=== PATIENT | female | born 1945 | race Caucasian/White ===

== ENCOUNTER 2017-06-08 03:23 | Inpatient (IN) | payer OTHER, MEDICAID ==
[2017-06-08] VITALS (10 sets, daily range): BP systolic 81–93; BP diastolic 42–54; PULSE 83–96; RESP 16–20; TEMP 98.1; Ht 152.4 cm; Wt 120.3 kg
[~2017-06-08] VITALS: Ht 152.4 cm; Wt 120.3 kg
[2017-06-08] MEDS ORDERED: ALBUTEROL 0.083% (NEB) 2.5 MG/3 ML AMP HHN STA (03:29)
[2017-06-08] MEDS ORDERED: CEFEPIME 2GM/50 ML (PMX) 50 ML IVPB STA (03:29)
[2017-06-08] MEDS ORDERED: IPRATROPIUM (NEB) 0.5 MG/2.5 ML AMP HHN ONE (03:30)
[2017-06-08] MEDS ORDERED: SOD CHLORIDE 0.9% 500 ML IV ONE (04:00)
[2017-06-08] MEDS ORDERED: SOD CHLORIDE 0.9% 1,000 ML IV ONE ×2 (04:00)
[2017-06-08 04:27] LABS: ABNORMAL IP MESSAGE 1; BASOPHILS % 0.3 % (0.0-2.0); EOSINOPHILS # 0.1 10^3/ul (0.0-0.5); EOSINOPHILS % 2.1 % (0.0-7.0); HEMATOCRIT 29.5 % (37.0-47.0); HEMOGLOBIN 9.7 g/dl (12.0-16.0); LYMPHOCYTES # 1.1 10^3/ul (0.8-2.9); LYMPHOCYTES % 19.7 % (15.0-51.0); MEAN CORPUSCULAR HEMOGLOBIN 39.3 pg (29.0-33.0); MEAN CORPUSCULAR HGB CONC 32.9 g/dl (32.0-37.0); MEAN CORPUSCULAR VOLUME 119.4 fl (82.0-101.0); MEAN PLATELET VOLUME 11.6 fl (7.4-10.4); MONOCYTE # 0.3 10^3/ul (0.3-0.9); MONOCYTES % 5.6 % (0.0-11.0); NEUTROPHILS % 70.2 % (39.0-77.0); RED BLOOD COUNT 2.47 10^6/ul (4.20-5.40); RED CELL DISTRIBUTION WIDTH 15.9 % (11.5-14.5); WHITE BLOOD COUNT 5.8 10^3/ul (4.8-10.8)
[2017-06-08 04:34] LABS: POSITIVE DIFF @See below
[2017-06-08 04:46] LABS: INR 1.48; PT RATIO 1.4
[2017-06-08 04:47] LABS: PARTIAL THROMBOPLASTIN TIME 36.3 Sec (25.0-35.0)
[2017-06-08 04:57] LABS: ALANINE AMINOTRANSFERASE 37 IU/L (13-69); ALBUMIN 2.7 g/dl (3.3-4.9); ALBUMIN/GLOBULIN RATIO 0.52; ALKALINE PHOSPHATASE 239 IU/L (42-121); ANION GAP 9 (8-16); ASPARTATE AMINO TRANSFERASE 60 IU/L (15-46); BILIRUBIN,INDIRECT 2.7 mg/dl (0-1.1); BILIRUBIN,TOTAL 2.7 mg/dl (0.2-1.3); BLOOD UREA NITROGEN 17 mg/dl (7-20); CALCIUM 8.3 mg/dl (8.4-10.2); CARBON DIOXIDE 29 mmol/L (21-31); CHLORIDE 107 mmol/L (97-110); CREATININE 0.55 mg/dl (0.44-1.00); GLUCOSE 105 mg/dl (70-220); POTASSIUM 4.5 mmol/L (3.5-5.1); SODIUM 140 mmol/L (135-144); TOTAL PROTEIN 7.8 g/dl (6.1-8.1)
[2017-06-08 05:14] LABS: TROPONIN-I < 0.012 ng/ml (0.00-0.12)
--- NOTE | 2017-06-08 05:24 | RADRPT ---
PROCEDURE: CHEST CLINICAL INDICATION: 72-year-old female with shortness of breath and sepsis. TECHNIQUE: AP semi-erect view of the chest was obtained portably on two radiographs portably. Th e images were reviewed on a PACS workstation. COMPARISON: CR PORT CHEST 02/23/2009 FINDINGS: The cardiomediastinal silhouette is mildly prominent but without significant interval change. Chroni c interstitial lung changes are noted. There is no evidence for focal consolidation. There is no e vidence for congestive heart failure. There is no evidence for pneumothorax. Degenerative changes ar e seen within the right acromioclavicular joint. IMPRESSION: 1. Chronic lung changes. 2. Right acromioclavicular degenerative changes. .Julio C Armas MD, Date Time Electronically viewed and signed by .Julio C Armas MD, on 06/08/2017 05:23 .M/
[2017-06-08 05:31] LABS: PLATELET COUNT 52 10^3/UL (140-415)
[2017-06-08 05:52] LABS: URINE BLOOD (Dip) POC Negative (NEGATIVE)
[2017-06-08] MEDS ORDERED: ACETAMINOPHEN 325 MG TAB PO PRN ×2 (06:30→08:00)
[2017-06-08] MEDS ORDERED: ONDANSETRON 4 MG INJ IV PRN ×3 (06:30→14:00)
--- NOTE | 2017-06-08 06:32 | RADRPT ---
PROCEDURE: ULTRASOUND LIMITED ABDOMEN CLINICAL INDICATION: 72-year-old female with abdominal pain and hyperbilirubinemia. TECHNIQUE: Multiple sonographic of the right upper quadrant of the abdomen were obtained. The imag es were reviewed on a PACS workstation. COMPARISON: None. FINDINGS: The pancreas is not well visualized secondary to overlying bowel gas. The liver has a coarse heterogeneous cirrhotic appearing. The liver measures 11.4 cm in length. No evidence of intrahepatic biliary ductal dilatation is seen. The portal and hepatic veins are unremar kable. The gallbladder is not visualized consistent with prior cholecystectomy. No pericholecystic fluid is seen. The common bile duct measures 4.2 mm and is not dilated. The right kidney displays normal echogenicity. The right kidney measures 9.8 cm in maximal length. N o caliectasis or hydronephrosis is seen. There is [id number] ascites present. IMPRESSION: 1. Nbjv-kw-[id number] ascites. 2. Cirrhotic liver. 3. Status post cholecystectomy. 4. The pancreas is not well visualized secondary to overlying bowel gas. .Julio C Armas MD, Date Time Electronically viewed and signed by .Julio C Armas MD, MD on 06/08/2017 06:32 .M/
[2017-06-08 07:43] LABS: ADD UMIC YES; UR AMORPHOUS CRYSTAL FEW /HPF (NONE SEEN); UR ASCORBIC ACID NEGATIVE (NEGATIVE); UR BACTERIA FEW /HPF (NONE SEEN); UR BILIRUBIN (Dip) NEGATIVE (NEGATIVE); UR BLOOD (Dip) 1+ mg/dL (NEGATIVE); UR CLARITY SLIGHTLY CLOUDY (CLEAR); UR COLOR AMBER (YELLOW); UR GLUCOSE (Dip) NEGATIVE (NEGATIVE); UR KETONES (Dip) NEGATIVE (NEGATIVE); UR LEUKOCYTE ESTERASE (Dip) NEGATIVE Leu/ul (NEGATIVE); UR MUCUS MANY /HPF (NONE SEEN); UR NITRITE (Dip) NEGATIVE (NEGATIVE); UR RBC 7 /HPF (0-5); UR SPECIFIC GRAVITY (Dip) 1.024 (1.003-1.030); UR SQUAMOUS EPITHELIAL CELL FEW /HPF (FEW); UR TOTAL PROTEIN (Dip) 1+ mg/dl (NEGATIVE); UR UROBILINOGEN (Dip) 2+ mg/dL (NEGATIVE)
[2017-06-08] MEDS ORDERED: NACL 0.9% 3 ML SYG IV SCH (08:00)
[2017-06-08] MEDS ORDERED: IPRATROPIUM (NEB) 0.5 MG/2.5 ML AMP NEB PRN (08:00)
[2017-06-08] MEDS ORDERED: LEVALBUTEROL (NEB) 0.63 MG/3 ML AMP HHN PRN (08:00)
[2017-06-08] MEDS ORDERED: morphine 2 MG INJ IV PRN (08:00)
--- NOTE | 2017-06-08 08:17 | ERD ---
ER Documentation Chief Complaint Chief Complaint awoken by SOB 3 hrs ago, flu symptoms, hot to touch, improved w/ hhn/ems HPI 72-year-old female awoke with shortness of breath 3 hours ago. Also generalized body aches and felt febrile and was shaky. Starting to feel better earlier yesterday. Brought in by paramedics who noticed that she was wheezing give her breathing treatment in route after which she was feeling slightly better. Denies any specific chest pain. ROS All systems reviewed and are negative except as per history of present illness. Allergies Allergies: Coded Allergies: No Known Allergy (Unverified , 06/08/17) PMhx/Soc History of Surgery: Yes (Gall bladder, Cosmetic fat/skin removal abd.) Anesthesia Reaction: No Hx Neurological Disorder: No Hx Respiratory Disorders: Yes (COPD) Hx Cardiac Disorders: Yes (CHF) Hx Psychiatric Problems: No Hx Miscellaneous Medical Probl: No Hx Alcohol Use: No Hx Substance Use: No Hx Tobacco Use: No Smoking Status: Never smoker Physical Exam Vitals Vital Signs Date Time Temp Pulse Resp B/P Pulse Ox O2 Delivery O2 Flow Rate FiO2 06/08/17 06:22 98.9 113 20 114/65 06/08/17 06:00 111 23 118/50 Room Air 06/08/17 03:50 107 24 95 Nasal Cannula 21 06/08/17 03:35 102.0 104 24 141/73 99 Room Air 06/08/17 03:28 102.0 111 24 141/73 99 Physical Exam Const: [] Moderate distress Head: Atraumatic Eyes: Normal Conjunctiva ENT: Normal External Ears, Nose and Mouth. Neck: Full range of motion..~ No meningismus. Resp: Left anterior wheezing with tachypnea and mild accessory muscle use Cardio: Regular tachycardia no murmurs Abd: Soft, non tender, non distended. Normal bowel sounds Skin: No petechiae or rashes Back: No midline or flank tenderness Ext: No cyanosis, or edema Neur: Awake and alert and oriented 3, no focal deficits. Psych: Normal Mood and Affect Result Diagram: 06/08/17 0345 06/08/17 0345 Results 24 hrs Laboratory Tests Test 06/08/17 03:45 06/08/17 05:51 06/08/17 06:20 06/08/17 07:00 White Blood Count 5.810^3/ul Red Blood Count 2.4710^6/ul Hemoglobin 9.7g/dl Hematocrit 29.5% Mean Corpuscular Volume 119.4fl Mean Corpuscular Hemoglobin 39.3pg Mean Corpuscular Hemoglobin Concent 32.9g/dl Red Cell Distribution Width 15.9% Platelet Count 5210^3/UL Mean Platelet Volume 11.6fl Neutrophils % 70.2% Lymphocytes % 19.7% Monocytes % 5.6% Eosinophils % 2.1% Basophils % 0.3% Nucleated Red Blood Cells % 0.0/100WBC Neutrophils # 4.010^3/ul Lymphocytes # 1.110^3/ul Monocytes # 0.310^3/ul Eosinophils # 0.110^3/ul Basophils # 0.010^3/ul Nucleated Red Blood Cells # 0.010^3/ul Prothrombin Time 18.0Sec Prothrombin Time Ratio 1.4 INR International Normalized Ratio 1.48 Activated Partial Thromboplast Time 36.3Sec Sodium Level 140mmol/L Potassium Level 4.5mmol/L Chloride Level 107mmol/L Carbon Dioxide Level 29mmol/L Anion Gap 9 Blood Urea Nitrogen 17mg/dl Creatinine 0.55mg/dl Glucose Level 105mg/dl Lactic Acid Level 3.1mmol/L 2.8mmol/L Calcium Level 8.3mg/dl Total Bilirubin 2.7mg/dl Direct Bilirubin 0.00mg/dl Indirect Bilirubin 2.7mg/dl Aspartate Amino Transf (AST/SGOT) 60IU/L Alanine Aminotransferase (ALT/SGPT) 37IU/L Alkaline Phosphatase 239IU/L Troponin I < 0.012ng/ml Total Protein 7.8g/dl Albumin 2.7g/dl Globulin 5.10g/dl Albumin/Globulin Ratio 0.52 Bedside Urine pH (LAB) 5.5 Bedside Urine Protein (LAB) 1+ Bedside Urine Glucose (UA) Negative Bedside Urine Ketones (LAB) Negative Bedside Urine Blood Negative Bedside Urine Nitrite (LAB) Negative Bedside Urine Leukocyte Esterase (L Negative Urine Color EDIL Urine Clarity SLIGHTLY CLOUDY Urine pH 5.0 Urine Specific [place] 1.024 Urine Ketones NEGATIVEmg/dL Urine Nitrite NEGATIVEmg/dL Urine Bilirubin NEGATIVEmg/dL Urine Urobilinogen 2+mg/dL Urine Leukocyte Esterase NEGATIVELeu/ul Urine Microscopic RBC 7/HPF Urine Microscopic WBC 3/HPF Urine Squamous Epithelial Cells FEW/HPF Urine Amorphous Crystals FEW/HPF Urine Bacteria FEW/HPF Urine Mucus MANY/HPF Urine Hemoglobin 1+mg/dL Urine Glucose NEGATIVEmg/dL Urine Total Protein 1+mg/dl Current Medications Medications (Trade) Dose Ordered Sig/Aaliyah Route PRN Reason Start Time Stop Time Status Last Admin Dose Admin Cefepime HCl (Maxipime 2gm/50 ml (Pmx)) 50 ml @ 100 mls/hr ONCE STAT IVPB 06/08/17 03:29 06/08/17 03:58 DC 06/08/17 03:29 Ipratropium [place] (Atrovent 0.02% (Neb)) 0.5 mg ONCE ONCE HHN 06/08/17 03:30 06/08/17 03:31 DC 06/08/17 03:51 Albuterol 5 mg 5 mg ONCE STAT HHN 06/08/17 03:29 06/08/17 03:31 DC 06/08/17 03:51 Sodium Chloride 1,000 ml @ 1,000 mls/hr Q1H ONCE IV 06/08/17 04:00 06/08/17 04:59 DC 06/08/17 04:41 Sodium Chloride 1,000 ml @ 1,000 mls/hr Q1H ONCE IV 06/08/17 04:00 06/08/17 04:59 DC 06/08/17 04:41 Sodium Chloride (NS) 500 ml @ 500 mls/hr Q1H ONCE IV 06/08/17 04:00 06/08/17 04:59 DC 06/08/17 04:00 Ondansetron HCl (Zofran Inj) 4 mg BRIDGE ORDER PRN IV NAUSEA AND/OR VOMITING 06/08/17 06:30 06/09/17 06:29 Acetaminophen (Tylenol Tab) 650 mg ER BRIDGE PRN PO MILD PAIN/FEVER 06/08/17 06:30 06/09/17 06:29 IV Flush (NS 3 ml) 3 ml PER PROTOCOL IV 06/08/17 08:00 Ondansetron HCl (Zofran Inj) 4 mg Q6H PRN IV NAUSEA AND/OR VOMITING 06/08/17 08:00 Acetaminophen (Tylenol Tab) 650 mg Q6H PRN PO PAIN LEVEL 1-3 OR FEVER 06/08/17 08:00 Morphine Sulfate (morphine) 2 mg Q4H PRN IV SEVERE PAIN LEVEL 7-10 06/08/17 08:00 Heparin Sodium (Porcine) (Heparin (5000 Units/0.5 ml)) 5,000 unit Q12 SC 06/08/17 09:00 Ipratropium [place] (Atrovent 0.02% (Neb)) 0.5 mg Q4H RESP THERAPY PRN NEB sob 06/08/17 08:00 Levalbuterol 0.63 mg 0.63 mg Q4H RESP THERAPY PRN HHN SHORTNESS OF BREATH 06/08/17 08:00 Levofloxacin/ Dextrose (Levaquin 500mg/ D5W 100 ml (Pmx)) 100 ml @ 100 mls/hr DAILY IVPB 06/08/17 09:00 Procedures/MDM Acute febrile illness with sepsis, likely respiratory in origin. Patient does not have any history of asthma but was significantly wheezing on arrival. Breathing treatment improved her condition with albuterol and Atrovent. BiPAP was considered but was not necessary. Patient was given 2-1/2 L of normal saline to complete 30 cc/kg and given cefepime empirically. Blood cultures were obtained. I have very low suspicion for SBP as patient has no abdominal pain but does have significant respiratory symptoms with wheezing.. Still on oxygen the condition is greatly improved. She will be admitted to telemetry for further workup and management. Hospitalists are admitting. Dr. alcazar is admitting. EKG interpretation: This tachycardia rate of 102, indeterminate axis with significant artifact, no ST or T-wave changes concerning for acute ischemia, normal intervals. Monitor interpretation: Sinus tachycardia without arrhythmia Chest x-ray interpretation: I see no acute process, I see no pneumonia, no pulmonary edema, pneumothorax, no fractures Gallbladder ultrasound: Cirrhotic liver with ascites, no gallstones or signs of acute cholecystitis Critical care time greater than 35 minutes: This includes treatment of unstable vital signs with acute sepsis, consideration of noninvasive positive pressure ventilation, careful fluid administration, early empiric antibiotic administration, chart review, multiple visits patient's bedside to reassess respiratory status, discussion with patient and admitting doctor. This does not include billable procedures Departure Diagnosis: Primary Impression: Sepsis Additional Impressions: Respiratory distress Ascites Fever Macrocytic anemia Thrombocytopenia ADILENE CHADWICK DO Jun 08, 2017 08:17
--- NOTE | 2017-06-08 08:45 | HP ---
Date/Time of Note Date/Time of Note DATE: 06/08/17 TIME: 08:38 Assessment/Plan VTE Prophylaxis VTE Prophylaxis Intervention: SCD's Assessment/Plan Assessment/Plan 1. Shortness of breath, multifactorial etiology -Secondary to COPD, decompensated liver cirrhosis with ascites and probable CHF and URI vs early developing pneumonia -Will started on Lasix and Aldactone given moderate ascites as well as severely edematous lower extremity -2D echo -If symptoms does not improve on diuretics, paracentesis will be considered -Breathing treatments as needed and steroids will be considered -IV antibiotic given presentation of sepsis 2. Sepsis, as evidenced by fever and tachycardia, likely secondary to URI versus early developing pneumonia -IV antibiotic -Follow-up culture results 3. History of diabetes -Check A1c -Insulin while in-house 4. History of hypothyroidism -Check TSH HPI/ROS Admit Date/Time Admit Date/Time Hx of Present Illness This is a 72-year-old female with a history of COPD, CHF, diabetes, hypothyroidism, dyslipidemia and cirrhosis who presented to the ER complaining of shortness of breath, cough, bilateral lower extremity swelling and wheezing. Patient's daughter, the bedside provided information as well. Cough is dry. Patient denied chest pain, fever, chills, nausea or vomiting. When she presented to the ER she was febrile with a temperature 102, tachycardic with a heart rate of 111 and tachypneic with a respiratory rate of 24. Chest x-ray shows chronic lung change. Abdominal ultrasound shows cirrhotic liver with mild to moderate ascites. PMH/Family/Social Social History Smoking Status: Never smoker Exam/Review of Systems Vital Signs Vitals Vital Signs Date Time Temp Pulse Resp B/P Pulse Ox O2 Delivery O2 Flow Rate FiO2 06/08/17 08:29 98.1 95 20 100/58 06/08/17 06:00 Room Air 06/08/17 03:50 95 21 Exam Exam Constitutional: alert, oriented, well developed Head: atraumatic, normocephalic Eyes: EOMI, PERRL Respiratory: clear to auscultation, normal air movement Cardiovascular: nl pulses, regular rate and rhythm Gastrointestinal: non-tender, soft Extremities: other (Left hip tenderness) Labs Result Diagram: 06/08/17 0345 06/08/17344 Medications Medications Current Medications Ondansetron HCl (Zofran Inj) 4 mg Q6H PRN IV NAUSEA AND/OR VOMITING; Start 06/14 at 08:00 Acetaminophen (Tylenol Tab) 650 mg Q6H PRN PO PAIN LEVEL 1-3 OR FEVER; Start 06/08/17 at 08:00 Morphine Sulfate (morphine) 2 mg Q4H PRN IV SEVERE PAIN LEVEL 7-10; Start 06/14 at 08:00 Heparin Sodium (Porcine) 5000 unit 5,000 unit Q12 SC ; Start 06/08/17 at 09:00 Levofloxacin/ Dextrose (Levaquin 500mg/ D5W 100 ml (Pmx)) 100 ml @ 100 mls/hr DAILY IVPB ; Start 06/08/17 at 09:00 KAT RAY MD Jun 08, 2017 08:45
[2017-06-08] MEDS ORDERED: LEVOFLOXACIN 500MG/D5W (PMX) 100 ML IVPB SCH (09:00)
[2017-06-08 09:26] LABS: CK-MB 1.2 ng/ml (0.0-2.4); TROPONIN-I 0.036 ng/ml (0.00-0.12)
[2017-06-08] MEDS: ALBUMIN HUMAN 25% 100 ML IV SCH ×2 (10:50→17:09)
[2017-06-08] MEDS: FUROSEMIDE 40 MG INJ IV SCH (10:51)
[2017-06-08] MEDS: SPIRONOLACTONE 25 MG TAB PO SCH (10:51)
[2017-06-08] MEDS: HEPARIN 5,000 UNIT/0.5 ML VIAL SC SCH ×2 (10:54→20:11)
[2017-06-08] MEDS ORDERED: TRIMETHOBENZAMIDE 100 MG/ML VIAL IM PRN (11:30)
[2017-06-08] MEDS: IPRATROPIUM (NEB) 0.5 MG/2.5 ML AMP NEB SCH ×3 (12:17→21:32)
[2017-06-08] MEDS: LEVALBUTEROL (NEB) 0.63 MG/3 ML AMP HHN SCH ×3 (12:17→21:32)
[2017-06-08 14:50] LABS: CK-MB 1.44 ng/ml (0.0-2.4); TROPONIN-I 0.035 ng/ml (0.00-0.12)
[2017-06-08] MEDS ORDERED: LIDOCAINE 1% (MPF) 5 ML VIAL ONE (16:00)
--- NOTE | 2017-06-08 16:07 | RADRPT ---
PROCEDURE: Ultrasound guided paracentesis CLINICAL INDICATION: Ascites TECHNIQUE: The risks, benefits, and alternatives were explained to the patient, including but not limited to bleeding, infection, pain, visceral or vascular damage, shock, and . The patient und erstood the risks and the alternatives and wished to proceed with the procedure. Informed written co nsent was obtained from the patient's daughter. A procedural time out was performed. The patient's n kathryn, date of , and procedure to be performed were verified. Preliminary shovel operator ultrasound of the abdomen was performed. Fluid was identified in the right lower quadrant. The overlying skin of the right lower quadrant was prepped and draped in the usual steril e fashion. Under ultrasound guidance, a skin an 8-English catheter was introduced into the right low er quadrant peritoneal cavity after 10 ml of 1% lidocaine was injected for pain control. 2000 ml of clear yellow fluid was obtained without difficulty. The fluid was sent the laboratory for further a nalysis. The patient tolerated procedure well without complication. COMPARISON: Same day ultrasound FINDINGS: Approximately 2000 ml of clear yellow fluid was obtained. The fluid was sent to the laboratory for further evaluation. RPTAT: QQ IMPRESSION: 1. Successful ultrasound-guided paracentesis. .Rachel Lawrence MD, Date Time Electronically viewed and signed by .Rachel Lawrence MD, on 06/08/2017 16:06 .T/
[2017-06-08 16:26] LABS: FLD MN% 17.7 %; FLD PMN% 82.3 %; FLD RBC 2000 /uL; FLD WBC 1983 /cmm
[2017-06-08 17:00] LABS: FLUID AMYLASE < 30 U/L; FLUID GLUCOSE 92 mg/dl; FLUID LD 182 U/L; FLUID TYPE FLUID
[2017-06-08] MEDS ORDERED: CEFEPIME 2GM/50 ML (PMX) 50 ML IVPB SCH (17:00)
[2017-06-08 17:01] LABS: FLUID TOTAL PROTEIN < 2.0 g/dl; FLUID TYPE FLUID
[2017-06-08 17:47] LABS: FLD CLARITY CLOUDY; FLD COLOR AMBER; FLD TYPE ASCITES
--- NOTE | 2017-06-08 18:01 | RADRPT ---
PROCEDURE: US bilateral lower extremity venous Doppler CLINICAL INDICATION: Bilateral swelling TECHNIQUE: Multiple sonographic images of the bilateral lower extremity deep venous system was obt ained utilizing grayscale, color-flow, compressive sonography and Doppler imaging with augmentation. COMPARISON: There are no similar studies submitted for comparison. FINDINGS: There is normal compressibility and flow within the left common femoral, superficial femoral, poplit eal, and calf veins. There is normal compressibility and flow within the right common femoral, superficial femoral, popli teal, and calf veins. The examination is limited with limited visualization of the mid to distal superficial femoral veins . IMPRESSION: No evidence of DVT within the lower extremities. RPTAT: HIKT .Kory Murray MD, MD Date Time Electronically viewed and signed by .Kory Murray MD, on 06/08/2017 18:01 .T/
[2017-06-08] MEDS: CEFEPIME 2GM/50 ML (PMX) 50 ML IVPB SCH (18:28)
[2017-06-09] VITALS (11 sets, daily range): BP systolic 80–108; BP diastolic 44–57; PULSE 69–95; RESP 18–20
[2017-06-09] MEDS: LEVALBUTEROL (NEB) 0.63 MG/3 ML AMP HHN SCH ×6 (01:00→20:05)
[2017-06-09] MEDS: IPRATROPIUM (NEB) 0.5 MG/2.5 ML AMP NEB SCH ×6 (01:00→20:05)
[2017-06-09] MEDS: ALBUMIN HUMAN 25% 100 ML IV SCH (01:18)
[2017-06-09 06:40] LABS: ABNORMAL IP MESSAGE 1; HEMATOCRIT 19.6 % (37.0-47.0); MEAN CORPUSCULAR HEMOGLOBIN 39.9 pg (29.0-33.0); MEAN CORPUSCULAR HGB CONC 32.1 g/dl (32.0-37.0); MEAN CORPUSCULAR VOLUME 124.1 fl (82.0-101.0); MEAN PLATELET VOLUME 11.8 fl (7.4-10.4); RED BLOOD COUNT 1.58 10^6/ul (4.20-5.40); RED CELL DISTRIBUTION WIDTH 16.2 % (11.5-14.5); WHITE BLOOD COUNT 11.4 10^3/ul (4.8-10.8)
[2017-06-09 06:47] LABS: HEMOGLOBIN 6.3 g/dl (12.0-16.0)
[2017-06-09 06:48] LABS: PLATELET COUNT 27 10^3/UL (140-415); POSITIVE DIFF @See below
[2017-06-09 07:39] LABS: ALBUMIN 2.2 g/dl (3.3-4.9); ALBUMIN/GLOBULIN RATIO 0.66; BILIRUBIN,DIRECT 0.4 mg/dl (0.00-0.20); BILIRUBIN,INDIRECT 3.2 mg/dl (0-1.1); BILIRUBIN,TOTAL 3.6 mg/dl (0.2-1.3); CALCIUM 8.1 mg/dl (8.4-10.2); CHOL/HDL RATIO 3.7 RATIO; CREATININE 1.02 mg/dl (0.44-1.00); MAGNESIUM 1.6 mg/dl (1.7-2.5); PHOSPHORUS 3.2 mg/dl (2.5-4.9); POTASSIUM 5.3 mmol/L (3.5-5.1); TOTAL PROTEIN 5.5 g/dl (6.1-8.1)
[2017-06-09 07:43] LABS: THYROID STIMULATING HORMONE 4.98 MIU/L (0.465-4.680)
[2017-06-09 07:50] LABS: ANISOCYTOSIS 3+ (0-0); EOSINOPHILS % (M) 1 % (0-7); MONOCYTES % (M) 3 % (0-11); PLATELET ESTIMATE DECREASED; POLYCHROMASIA 1+ (0-0)
[2017-06-09 08:08] LABS: ABNORMAL IP MESSAGE 1; HEMATOCRIT 18.9 % (37.0-47.0); MEAN CORPUSCULAR HEMOGLOBIN 39.5 pg (29.0-33.0); MEAN CORPUSCULAR HGB CONC 31.7 g/dl (32.0-37.0); MEAN CORPUSCULAR VOLUME 124.3 fl (82.0-101.0); MEAN PLATELET VOLUME 12.5 fl (7.4-10.4); RED BLOOD COUNT 1.52 10^6/ul (4.20-5.40); RED CELL DISTRIBUTION WIDTH 16.2 % (11.5-14.5); WHITE BLOOD COUNT 10.2 10^3/ul (4.8-10.8)
[2017-06-09 08:09] LABS: POSITIVE DIFF @See below
[2017-06-09 08:10] LABS: PLATELET COUNT 29 10^3/UL (140-415)
[2017-06-09] MEDS ORDERED: SOD CHLORIDE 0.9% 250 ML IV* ONE (09:07)
[2017-06-09] MEDS: FUROSEMIDE 40 MG INJ IV SCH (09:21)
[2017-06-09] MEDS: SPIRONOLACTONE 25 MG TAB PO SCH (09:21)
[2017-06-09] MEDS ORDERED: MAGNESIUM SULFATE 2 GM/50 ML 50 ML IVPB ONE (09:30)
[2017-06-09] MEDS ORDERED: AMIKACIN IV PER PHARMACY XX SCH (09:30)
[2017-06-09 10:25] LABS: ANISOCYTOSIS 2+ (0-0); EOSINOPHILS % (M) 2 % (0-7); MONOCYTES % (M) 2 % (0-11); MYELOCYTES % (M) 1 % (0-0); PLATELET ESTIMATE SIG DECREASED; POLYCHROMASIA 3+ (0-0)
--- NOTE | 2017-06-09 10:57 | CONS ---
Date/Time of Note Date/Time of Note DATE: 06/09/17 TIME: 10:43 Assessment/Plan Assessment/Plan Chief Complaint/Hosp Course Impression: 1. cirrhotic liver with ascites 2. SBP on ascitic fluid analysis 3. melena with anemia 4. COPD exacerbation Recommendation: 1. start protonix bid dosing 2. start octreotide gtt 3. viral hepatitis panel 4. transfuse 2 units of platelets and pRBC 5. plan for EGD for hemostasis with Dr. Dior Problems: Consultation Date/Type/Reason Admit Date/Time Date of Consultation: Jun 09, 2017 Type of Consultation: GI Reason for Consultation melena, anemia Hx of Present Illness 72-year-old female who is admitted for COPD exacerbation.l He has a history of COPD, CHF, diabetes, hypothyroidism, dyslipidemia and cirrhosis, She is complaining of shortness of breath, cough, bilateral lower extremity swelling and wheezing. Patient's daughter, the bedside provided information as well. Cough is dry. Patient denied chest pain, fever, chills, nausea or vomiting. Abdominal ultrasound shows cirrhotic liver with mild to moderate ascites. She is noted to have acute drop in h/h 9 to 6. Stool noted to be dark and thus GI consulted. all point ros administered, pertinent positives and negatives in HPI otherwise negative. Past Medical History Medical History: congestive heart failure, diabetes, high cholesterol, hypothyroid, other (cirrhosis) Past Surgical History Past Surgical Hx: no surgical history Family History Significant Family History: no pertinent family hx Social History Alcohol Use: none Smoking Status: Never smoker Drug Use: none Exam/Review of Systems Vital Signs Vitals Vital Signs Date Time Temp Pulse Resp B/P Pulse Ox O2 Delivery O2 Flow Rate FiO2 06/09/17 09:06 Nasal Cannula 2.0 06/09/17 08:10 75 22 95 28 06/09/17 07:39 98.7 83/46 Intake and Output 06/08/17 06/08/17 06/09/17 15:00 23:00 07:00 Intake Total 200 ml 870 ml 400 ml Balance 200 ml 870 ml 400 ml Exam Constitutional: alert, oriented, well developed Psych: nl mood/affect, no complaints Head: atraumatic, normocephalic Eyes: EOMI, nl conjunctiva, nl lids ENMT: nl external ears & nose, nl lips & teeth, nl nasal mucosa & septum Neck: non-tender, supple Respiratory: clear to auscultation, normal air movement Cardiovascular: nl pulses, regular rate and rhythm Gastrointestinal: bowel sounds, non-tender, soft Musculoskeletal: nl extremities to inspection, nl gait and stance Results Result Diagram: 06/09/17 0710 06/09/17 0600 Results 24 hrs Laboratory Tests Test 06/08/17 14:07 06/08/17 15:30 06/09/17 06:00 06/09/17 06:01 Creatine Kinase 59 Creatine Kinase Index 2.4 Creatinine Kinase MB (Mass) 1.44 Troponin I 0.035 Body Fluid Type FLUID Body Fluid Volume 1000.0 Body Fluid Color EDIL Body Fluid Appearance CLOUDY Body Fluid WBC 1983 Body Fluid RBC (Auto) 2000 Body Fluid Polynuclear WBCs (%) 82.3 Body Fluid Mononuclear Cells % Auto 17.7 Body Fluid Glucose 92 Body Fluid Total Protein < 2.0 Body Fluid Lactate Dehydrogenase 182 Body Fluid Amylase < 30 Sodium Level 138 Potassium Level 5.3 H Chloride Level 108 Carbon Dioxide Level 27 Anion Gap 8 Blood Urea Nitrogen 34 #H Creatinine 1.02 H Glucose Level 87 Calcium Level 8.1 L Phosphorus Level 3.2 Magnesium Level 1.6 L Total Bilirubin 3.6 H Direct Bilirubin 0.40 #H Indirect Bilirubin 3.2 H Aspartate Amino Transf (AST/SGOT) 24 Alanine Aminotransferase (ALT/SGPT) 33 Alkaline Phosphatase 61 # Total Protein 5.5 #L Albumin 2.2 L Globulin 3.30 H Albumin/Globulin Ratio 0.66 Triglycerides Level 37 Cholesterol Level 68 L LDL Cholesterol, Calculated 43 HDL Cholesterol 18 L Cholesterol/HDL Ratio 3.7 Thyroid Stimulating Hormone (TSH) 4.980 H White Blood Count 11.4 #H Red Blood Count 1.58 #L Hemoglobin 6.3 #*L Hematocrit 19.6 #L Mean Corpuscular Volume 124.1 H Mean Corpuscular Hemoglobin 39.9 H Mean Corpuscular Hemoglobin Concent 32.1 Red Cell Distribution Width 16.2 H Platelet Count 27 #*L Mean Platelet Volume 11.8 H Neutrophils % Segmented Neutrophils % (Manual) 55 Band Neutrophils % (Manual) 34 H Lymphocytes % Lymphocytes % (Manual) 7 L Monocytes % Monocytes % (Manual) 3 Eosinophils % Eosinophils % (Manual) 1 Basophils % Nucleated Red Blood Cells % 0.0 Neutrophils # Neutrophils # (Manual) 6.7 Band Neutrophils # 3.8 H Absolute Lymphocytes (Manual) 0.7 L Lymphocytes # Monocytes # Absolute Monocytes (Manual) 0.3 Eosinophils # Basophils # Nucleated Red Blood Cells # Platelet Estimate DECREASED Polychromasia 1+ Anisocytosis 3+ Macrocytosis 3+ Hemoglobin A1c 6.0 H Test 06/09/17 07:10 White Blood Count 10.2 Red Blood Count 1.52 L Hemoglobin 6.0 *L Hematocrit 18.9 L Mean Corpuscular Volume 124.3 H Mean Corpuscular Hemoglobin 39.5 H Mean Corpuscular Hemoglobin Concent 31.7 L Red Cell Distribution Width 16.2 H Platelet Count 29 *L Mean Platelet Volume 12.5 H Neutrophils % Segmented Neutrophils % (Manual) 65 Band Neutrophils % (Manual) 21 H Lymphocytes % Lymphocytes % (Manual) 8 L Monocytes % Monocytes % (Manual) 2 Eosinophils % Eosinophils % (Manual) 2 Basophils % Myelocytes % (Manual) 1 H Nucleated Red Blood Cells % 0.0 Neutrophils # Neutrophils # (Manual) 6.8 Band Neutrophils # 2.1 H Absolute Lymphocytes (Manual) 0.8 Lymphocytes # Monocytes # Absolute Monocytes (Manual) 0.2 L Eosinophils # Basophils # Myelocytes # 0.1 H Nucleated Red Blood Cells # Platelet Estimate SIG DECREASED Polychromasia 3+ Anisocytosis 2+ Macrocytosis 2+ Medications Medications Current Medications Acetaminophen (Tylenol Tab) 650 mg Q6H PRN PO PAIN LEVEL 1-3 OR FEVER Last administered on 06/08/17 22:57; Admin Dose 650 MG; Start 06/08/17 at 08:00; Status Future Hold Morphine Sulfate (morphine) 2 mg Q4H PRN IV SEVERE PAIN LEVEL 7-10; Start 06/14 at 08:00 Furosemide (Lasix) 40 mg DAILY IV Last administered on 06/09/17 09:21; Admin Dose 40 MG; Start 06/08/17 at 09:00 Spironolactone (Aldactone) 25 mg DAILY PO Last administered on 06/09/17 09:21 ; Admin Dose 25 MG; Start 06/08/17 at 09:00 Ondansetron HCl (Zofran Inj) 8 mg Q6H PRN IV NAUSEA AND/OR VOMITING; Start 06/14 at 14:00 Trimethobenzamide HCl 200 mg 200 mg Q6H PRN IM NAUSEA AND/OR VOMITING; Start 06/08/17 at 11:30 Cefepime HCl 50 ml @ 100 mls/hr Q12 IVPB Last administered on 06/08/17 18:28 ; Admin Dose 100 MLS/HR; Start 06/08/17 at 17:30; Stop 06/09/17 at 14:00 Magnesium Sulfate 50 ml @ 25 mls/hr ONCE ONCE IVPB Last administered on 09:27; Admin Dose 25 MLS/HR; Start 06/09/17 at 09:30; Stop 06/09/17 at 11 :29 Cefepime HCl (Maxipime 2gm/50 ml (Pmx)) 50 ml @ 100 mls/hr Q12 IVPB ; Start at 21:00 ANETA YU MD Jun 09, 2017 10:53
[2017-06-09 11:35] LABS: PLATELET COUNT 25 10^3/UL (140-415)
[2017-06-09] MEDS: CEFEPIME 2GM/50 ML (PMX) 50 ML IVPB SCH (11:42)
[2017-06-09 11:46] LABS: INR 2.64; PROTIME 28.5 Sec (12.2-14.2); PT RATIO 2.2
[2017-06-09 11:47] LABS: THROMBIN TIME 17.8 SEC (13.8-19.1)
--- NOTE | 2017-06-09 11:58 | PN ---
Date/Time of Note Date/Time of Note DATE: 06/09/17 TIME: 11:53 Assessment/Plan VTE Prophylaxis VTE Prophylaxis Intervention: contraindicated VTE Contraindication Reason: bleeding, thrombocytopenia Lines/Catheters IV [facility] [place] Urinary Cath still in place: No Assessment/Plan Chief Complaint/Hosp Course Assessment/Plan: 72-year-old female presented with shortness of breath, ascites , with a history of cirrhosis, COPD. 1. Shortness of breath - multifactorial etiology, likely secondary to combination of COPD, decompensated liver cirrhosis with ascites, and probable CHF and URI vs early developing pneumonia. Status post paracentesis yesterday with 2 L removed. Less shortness of breath now. -Follow-up 2D echo -Breathing treatments as needed and steroids will be considered -IV antibiotic given presentation of sepsis 2. Sepsis, as evidenced by fever and tachycardia, likely secondary to URI versus early developing pneumonia -Continue to trend lactic acid, continue IV antibiotic -Follow-up final culture results 3. History of diabetes-A1c equals 6.0 -Insulin while in-house 4. History of hypothyroidism -Follow-up TSH 5. Thrombocytopenia: Likely secondary to patient's history of cirrhosis. Platelets however have dropped from 56 to the 29 range. Also with dark stools however this morning, and significant drop in hemoglobin as well. -Appreciate GI consult, transfuse 2 units PRBC, plan for possible EGD in 24 hours. -Started on PPI and octreotide drips as well today. Also will get PT and OT consults. Problems: Subjective 24 Hr Interval Summary Free Text/Dictation Patient had some dark stools this morning. Had paracentesis yesterday. Now with lower hemoglobin this morning as well. Exam/Review of Systems Vital Signs Vitals Vital Signs Date Time Temp Pulse Resp B/P Pulse Ox O2 Delivery O2 Flow Rate FiO2 06/09/17 09:06 Nasal Cannula 2.0 06/09/17 08:10 75 22 95 28 06/09/17 07:39 98.7 83/46 Intake and Output 06/08/17 06/08/17 06/09/17 14:59 22:59 06:59 Intake Total 200 ml 870 ml 400 ml Balance 200 ml 870 ml 400 ml Exam Constitutional: alert, oriented, sitting on edge of bed Psych: nl mood/affect, no complaints Head: atraumatic, normocephalic Eyes: EOMI, nl conjunctiva, nl lids ENMT: nl external ears & nose, nl lips & teeth, nl nasal mucosa & septum Neck: non-tender, supple Respiratory: clear to auscultation, normal air movement Cardiovascular: nl pulses, regular rate and rhythm Gastrointestinal: bowel sounds, non-tender, soft Musculoskeletal: nl extremities to inspection, nl gait and stance Results Result Diagram: 06/09/17 1048 06/09/17 0600 Results 24 hrs Laboratory Tests Test 06/08/17 14:07 06/08/17 15:30 06/09/17 06:00 06/09/17 06:01 Creatine Kinase 59 Creatine Kinase Index 2.4 Creatinine Kinase MB (Mass) 1.44 Troponin I 0.035 Body Fluid Type FLUID Body Fluid Volume 1000.0 Body Fluid Color EDIL Body Fluid Appearance CLOUDY Body Fluid WBC 1983 Body Fluid RBC (Auto) 2000 Body Fluid Polynuclear WBCs (%) 82.3 Body Fluid Mononuclear Cells % Auto 17.7 Body Fluid Glucose 92 Body Fluid Total Protein < 2.0 Body Fluid Lactate Dehydrogenase 182 Body Fluid Amylase < 30 Sodium Level 138 Potassium Level 5.3 H Chloride Level 108 Carbon Dioxide Level 27 Anion Gap 8 Blood Urea Nitrogen 34 #H Creatinine 1.02 H Glucose Level 87 Calcium Level 8.1 L Phosphorus Level 3.2 Magnesium Level 1.6 L Total Bilirubin 3.6 H Direct Bilirubin 0.40 #H Indirect Bilirubin 3.2 H Aspartate Amino Transf (AST/SGOT) 24 Alanine Aminotransferase (ALT/SGPT) 33 Alkaline Phosphatase 61 # Total Protein 5.5 #L Albumin 2.2 L Globulin 3.30 H Albumin/Globulin Ratio 0.66 Triglycerides Level 37 Cholesterol Level 68 L LDL Cholesterol, Calculated 43 HDL Cholesterol 18 L Cholesterol/HDL Ratio 3.7 Thyroid Stimulating Hormone (TSH) 4.980 H White Blood Count 11.4 #H Red Blood Count 1.58 #L Hemoglobin 6.3 #*L Hematocrit 19.6 #L Mean Corpuscular Volume 124.1 H Mean Corpuscular Hemoglobin 39.9 H Mean Corpuscular Hemoglobin Concent 32.1 Red Cell Distribution Width 16.2 H Platelet Count 27 #*L Mean Platelet Volume 11.8 H Neutrophils % Segmented Neutrophils % (Manual) 55 Band Neutrophils % (Manual) 34 H Lymphocytes % Lymphocytes % (Manual) 7 L Monocytes % Monocytes % (Manual) 3 Eosinophils % Eosinophils % (Manual) 1 Basophils % Nucleated Red Blood Cells % 0.0 Neutrophils # Neutrophils # (Manual) 6.7 Band Neutrophils # 3.8 H Absolute Lymphocytes (Manual) 0.7 L Lymphocytes # Monocytes # Absolute Monocytes (Manual) 0.3 Eosinophils # Basophils # Nucleated Red Blood Cells # Platelet Estimate DECREASED Polychromasia 1+ Anisocytosis 3+ Macrocytosis 3+ Hemoglobin A1c 6.0 H Test 06/09/17 07:10 06/09/17 10:48 White Blood Count 10.2 Red Blood Count 1.52 L Hemoglobin 6.0 *L Hematocrit 18.9 L Mean Corpuscular Volume 124.3 H Mean Corpuscular Hemoglobin 39.5 H Mean Corpuscular Hemoglobin Concent 31.7 L Red Cell Distribution Width 16.2 H Platelet Count 29 *L 25 *L Mean Platelet Volume 12.5 H Neutrophils % Segmented Neutrophils % (Manual) 65 Band Neutrophils % (Manual) 21 H Lymphocytes % Lymphocytes % (Manual) 8 L Monocytes % Monocytes % (Manual) 2 Eosinophils % Eosinophils % (Manual) 2 Basophils % Myelocytes % (Manual) 1 H Nucleated Red Blood Cells % 0.0 Neutrophils # Neutrophils # (Manual) 6.8 Band Neutrophils # 2.1 H Absolute Lymphocytes (Manual) 0.8 Lymphocytes # Monocytes # Absolute Monocytes (Manual) 0.2 L Eosinophils # Basophils # Myelocytes # 0.1 H Nucleated Red Blood Cells # Platelet Estimate SIG DECREASED Polychromasia 3+ Anisocytosis 2+ Macrocytosis 2+ Prothrombin Time 28.5 #H Prothrombin Time Ratio 2.2 INR International Normalized Ratio 2.64 Activated Partial Thromboplast Time 52.0 H Thrombin Time 17.8 Fibrinogen Pending Plasma Fibrin Degradation Products Pending D-Dimer Pending Medications Medications Current Medications Acetaminophen (Tylenol Tab) 650 mg Q6H PRN PO PAIN LEVEL 1-3 OR FEVER Last administered on 06/08/17 22:57; Admin Dose 650 MG; Start 06/08/17 at 08:00; Status Future Hold Morphine Sulfate (morphine) 2 mg Q4H PRN IV SEVERE PAIN LEVEL 7-10; Start 06/14 at 08:00 Furosemide (Lasix) 40 mg DAILY IV Last administered on 06/09/17 09:21; Admin Dose 40 MG; Start 06/08/17 at 09:00 Spironolactone (Aldactone) 25 mg DAILY PO Last administered on 06/09/17 09:21 ; Admin Dose 25 MG; Start 06/08/17 at 09:00 Ondansetron HCl (Zofran Inj) 8 mg Q6H PRN IV NAUSEA AND/OR VOMITING; Start 06/14 at 14:00 Trimethobenzamide HCl 200 mg 200 mg Q6H PRN IM NAUSEA AND/OR VOMITING; Start 06/08/17 at 11:30 Cefepime HCl 50 ml @ 100 mls/hr Q12 IVPB Last administered on 06/09/17 11:42 ; Admin Dose 100 MLS/HR; Start 06/08/17 at 17:30; Stop 06/09/17 at 14:00 Cefepime HCl (Maxipime 2gm/50 ml (Pmx)) 50 ml @ 100 mls/hr Q12 IVPB ; Start at 21:00 Pantoprazole 40 mg 40 mg BID@06,18 IV ; Start 06/09/17 at 18:00 Octreotide Acetate/Sodium Chloride (Sandostatin/NS) 100 ml @ 5 mls/hr Q20H IV ; Start 06/09/17 at 11:00 JUDY PEREZ Jun 09, 2017 11:58
[2017-06-09 12:08] LABS: D-DIMER 7461.81 ng/ml (<460)
[2017-06-09 12:38] LABS: FIBRIN SPLIT PRODUCT <10 ug/ml (<10)
--- NOTE | 2017-06-09 13:15 | RADRPT ---
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 Physician: KAT RAY Quality: Good Procedures: Transthoracic echocardiogram with 2D, M-Mode, and Doppler examination, poor subcostal windows. Indications: Congestive Heart Failure. 2D/M Mode Doppler Measurement Value Normal Ranges Measurement Value Normal Ranges AoR Diam MM 2.8 cm AV Peak [place] 2.1 m/sec ACS MM 1.8 cm AV Peak PG 17.4 mmHg LVIDd 2D 4.9 3.5 - 5.6 cm LVOT Peak [place] 1.4 m/sec LVIDs 2D 2.6 2.1 - 4.1 cm LVOT Peak PG 7.5 mmHg LVPWd 2D 1.2 0.6 - 1.1 cm MV E Peak [place] 0.9 m/sec IVSd 2D 1.2 0.6 - 1.1 cm MV A Peak [place] 1.1 m/sec EDV 2D 114.1 cm3 MV E/A 0.8 ESV 2D 16.6 cm3 MV Decel Time 339 msec LA Dimen 2D 4.7 2.3 - 4.0 cm MV Decel [place] 3 MV E/A 0.8 MVA PHT 3.4 cm2 TR Peak [place] 3.2 m/sec TR Peak PG 41.0 mmHg PV Peak [place] 1.2 m/sec PV Peak PG 6.0 mmHg RVSP 49.0 mmHg Findings Left Ventricle: Normal left ventricular systolic function. Normal left ventricular cavity size. Mild concentric left ventricular hypertrophy. Ejection fraction is visually estimated at 65 %. Tissue Doppler/Mitral Doppler indices are consistent with impaired relaxation (Stage I diastolic dysfunction). Right Ventricle: Normal right ventricular size. Normal right ventricular systolic function. Left Atrium: There is moderate enlargement of left atrium. Right Atrium: The right atrium is normal in size. Mitral Valve: Mitral valve leaflets appear mildly thickened. Mild mitral annular calcification. Trace mitral regurgitation. Aortic Valve: No significant aortic stenosis or insufficiency. Aortic cusps appear mildly calcified. Tricuspid Valve: Normal appearance of the tricuspid valve. Estimated peak PA systolic pressure 49 mmHg. There is mild to moderate tricuspid regurgitation. Pulmonic Valve: Normal pulmonic valve appearance. No evidence of pulmonic regurgitation. Pericardium: Normal pericardium with no significant pericardial effusion. Aorta: Normal aortic root. IVC: Dilated IVC without respiratory collapse consistent with elevated right atrial pressure. Pulmonary Artery: Normal pulmonary artery size. Conclusions 1.Normal left ventricular systolic function. Normal left ventricular cavity size. Mild concentric left ventricular hypertrophy. Ejection fraction is visually estimated at 65 %. Tissue Doppler/Mitral Doppler indices are consistent with impaired relaxation (Stage I diastolic dysfunction). 2.Normal right ventricular size. Normal right ventricular systolic function. 3.There is moderate enlargement of left atrium. 4.The right atrium is normal in size. 5.Trace mitral regurgitation. 6.No significant aortic stenosis or insufficiency. 7.Estimated peak PA systolic pressure 49 mmHg. There is mild to moderate tricuspid regurgitation. 8.Normal pericardium with no significant pericardial effusion. Electronically Signed By: Preston Anne 09-Jun-2017 13:14:55 -0800 Patient Name: JAMIE OH Study Date: 08-Jun-2017 [id number]
[2017-06-09] MEDS: OCTREOTIDE 1 MG in SOD CHLORIDE 0.9% 95 ML IV SCH (14:04)
[2017-06-09] MEDS ORDERED: FUROSEMIDE 20 MG INJ IV ONE (18:00)
[2017-06-09] MEDS: PANTOPRAZOLE 40 MG INJ IV SCH (18:01)
[2017-06-09] MEDS ORDERED: ONDANSETRON INJ 8 MG in SOD CHLORIDE 0.9% 50 ML IV PRN (19:00)
[2017-06-09] MEDS ORDERED: CEFEPIME 2GM/50 ML (PMX) 50 ML IVPB SCH (21:00)
[2017-06-10] VITALS (21 sets, daily range): BP systolic 82–128; BP diastolic 42–90; PULSE 60–83; RESP 12–25
[2017-06-10] MEDS: IPRATROPIUM (NEB) 0.5 MG/2.5 ML AMP NEB SCH ×6 (00:31→20:39)
[2017-06-10] MEDS: LEVALBUTEROL (NEB) 0.63 MG/3 ML AMP HHN SCH ×6 (00:31→20:39)
[2017-06-10] MEDS: OCTREOTIDE 1 MG in SOD CHLORIDE 0.9% 95 ML IV SCH (03:15)
[2017-06-10] MEDS: PANTOPRAZOLE 40 MG INJ IV SCH ×2 (05:35→17:06)
[2017-06-10 06:08] LABS: HAAIG REFLEX REFLEX FILED
[2017-06-10 06:21] LABS: ABNORMAL IP MESSAGE 1; HEMATOCRIT 22.6 % (37.0-47.0); HEMOGLOBIN 7.4 g/dl (12.0-16.0); MEAN CORPUSCULAR HEMOGLOBIN 36.3 pg (29.0-33.0); MEAN CORPUSCULAR HGB CONC 32.7 g/dl (32.0-37.0); MEAN CORPUSCULAR VOLUME 110.8 fl (82.0-101.0); MEAN PLATELET VOLUME 10.9 fl (7.4-10.4); PLATELET COUNT 50 10^3/UL (140-415); RED BLOOD COUNT 2.04 10^6/ul (4.20-5.40); RED CELL DISTRIBUTION WIDTH 25.5 % (11.5-14.5); WHITE BLOOD COUNT 9.6 10^3/ul (4.8-10.8)
[2017-06-10 06:39] LABS: ALBUMIN/GLOBULIN RATIO 0.58
[2017-06-10 06:40] LABS: ALBUMIN 2.1 g/dl (3.3-4.9); BILIRUBIN,DIRECT 0.3 mg/dl (0.00-0.20); BILIRUBIN,INDIRECT 4.1 mg/dl (0-1.1); BILIRUBIN,TOTAL 4.4 mg/dl (0.2-1.3); CALCIUM 8.1 mg/dl (8.4-10.2); CREATININE 1.05 mg/dl (0.44-1.00); POTASSIUM 5.1 mmol/L (3.5-5.1); TOTAL PROTEIN 5.7 g/dl (6.1-8.1)
[2017-06-10 07:01] LABS: POSITIVE DIFF @See below
[2017-06-10 07:24] LABS: HEPATITIS B CORE ANTIBODY NEGATIVE (NEGATIVE)
[2017-06-10 07:51] LABS: ANISOCYTOSIS 3+ (0-0); EOSINOPHILS % (M) 3 % (0-7); GIANT THROMBO% (M) 1 % (0-0); MONOCYTES % (M) 1 % (0-11); PLATELET ESTIMATE DECREASED; POLYCHROMASIA 3+ (0-0)
[2017-06-10] MEDS: SPIRONOLACTONE 25 MG TAB PO SCH (09:00)
[2017-06-10] MEDS: FUROSEMIDE 40 MG INJ IV SCH (09:00)
--- NOTE | 2017-06-10 14:13 | PN ---
Date/Time of Note Date/Time of Note DATE: 06/10/17 TIME: 14:06 Assessment/Plan VTE Prophylaxis VTE Prophylaxis Intervention: SCD's Lines/Catheters IV Catheter Type (from Nrsg): Peripheral IV Urinary Cath still in place: No Assessment/Plan Assessment/Plan 72 yo F with h/o cirrhosis (?from [facility]) admitted for SOB, found to have SBP based on ascitic fluid evaluation with resultant bacteremia and anemia. #SBP: empiric cefoxitime, if culture negative at 72 hours will likely narrow to pathogen directed toward pt's blood culture -pt will also need lifelong SBP prophx #anemia in setting of cirrhosis: GI on consult, EGD possibly today empiric octreotide and PPI pending GI eval #DM v PreDM: cont SSI #hypothyroid: cont synthroid-->TSH slightly high. Pt should have TFTs rechecked by PCP in 4 weeks to see if Synthroid dose needs adjusting Exam/Review of Systems Vital Signs Vitals Vital Signs Date Time Temp Pulse Resp B/P Pulse Ox O2 Delivery O2 Flow Rate FiO2 06/10/17 12:50 58 20 98 Nasal Cannula 2.0 06/10/17 12:09 100/56 06/10/17 11:10 98.4 06/10/17 04:04 28 Intake and Output 06/09/17 06/09/17 06/10/17 14:59 22:59 06:59 Intake Total 100 ml 1160 ml 1030 ml Output Total 20 ml Balance 100 ml 1140 ml 1030 ml Results Result Diagram: 06/10/17 0557 06/10/17 0557 Results 24 hrs Laboratory Tests Test 06/09/17 18:12 06/10/17 05:57 06/10/17 06:27 Lactic Acid Level 1.9 White Blood Count 9.6 Red Blood Count 2.04 #L Hemoglobin 7.4 #L Hematocrit 22.6 L Mean Corpuscular Volume 110.8 H Mean Corpuscular Hemoglobin 36.3 H Mean Corpuscular Hemoglobin Concent 32.7 Red Cell Distribution Width 25.5 #H Platelet Count 50 #L Mean Platelet Volume 10.9 H Neutrophils % Segmented Neutrophils % (Manual) 85 H Band Neutrophils % (Manual) 8 H Lymphocytes % Lymphocytes % (Manual) 3 L Monocytes % Monocytes % (Manual) 1 Eosinophils % Eosinophils % (Manual) 3 Basophils % Nucleated Red Blood Cells % 0.0 Neutrophils # Neutrophils # (Manual) 8.2 H Band Neutrophils # 0.7 H Absolute Lymphocytes (Manual) 0.2 L Lymphocytes # Monocytes # Absolute Monocytes (Manual) 0.0 L Eosinophils # Basophils # Nucleated Red Blood Cells # Platelet Estimate DECREASED Giant Platelets 1 H Polychromasia 3+ Anisocytosis 3+ Macrocytosis 2+ Sodium Level 140 Potassium Level 5.1 Chloride Level 110 Carbon Dioxide Level 29 Anion Gap 6 L Blood Urea Nitrogen 42 H Creatinine 1.05 H Glucose Level 91 Calcium Level 8.1 L Total Bilirubin 4.4 H Direct Bilirubin 0.30 H Indirect Bilirubin 4.1 H Aspartate Amino Transf (AST/SGOT) 26 Alanine Aminotransferase (ALT/SGPT) 33 Alkaline Phosphatase 55 Total Protein 5.7 L Albumin 2.1 L Globulin 3.60 H Albumin/Globulin Ratio 0.58 Hepatitis B Surface Antigen NEGATIVE Hepatitis B Core Total Antibody NEGATIVE Hepatitis C Antibody NEGATIVE Lab Scanned Report BLOOD TRANSFUSION Medications Medications Current Medications Acetaminophen (Tylenol Tab) 650 mg Q6H PRN PO PAIN LEVEL 1-3 OR FEVER Last administered on 06/08/17 22:57; Admin Dose 650 MG; Start 06/08/17 at 08:00; Status Future Hold Morphine Sulfate (morphine) 2 mg Q4H PRN IV SEVERE PAIN LEVEL 7-10; Start 06/14 at 08:00 Furosemide (Lasix) 40 mg DAILY IV Last administered on 06/09/17 09:21; Admin Dose 40 MG; Start 06/08/17 at 09:00 Spironolactone (Aldactone) 25 mg DAILY PO Last administered on 06/09/17 09:21 ; Admin Dose 25 MG; Start 06/08/17 at 09:00 Trimethobenzamide HCl (Tigan) 200 mg Q6H PRN IM NAUSEA AND/OR VOMITING; Start 06/08/17 at 11:30 Pantoprazole 40 mg 40 mg BID@06,18 IV Last administered on 06/10/17 05:35; Admin Dose 40 MG; Start 06/09/17 at 18:00 Octreotide Acetate 1 mg/ Sodium Chloride 100 ml @ 5 mls/hr Q20H IV Last administered on 06/10/17 03:15; Admin Dose 5 MLS/HR; Start 06/09/17 at 11:00 Ondansetron HCl 8 mg/Sodium Chloride 54 ml @ 216 mls/hr Q6H PRN IV NAUSEA AND/ OR VOMITING; Start 06/09/17 at 19:00 Cefotaxime Sodium/ Dextrose (Claforan 2gm/50 ml (Pmx)) 50 ml @ 100 mls/hr Q8 IVPB ; Start 06/10/17 at 14:00 MELONY MOLINA MD Jun 10, 2017 14:13
[2017-06-10] MEDS: CEFOTAXIME 2 GM/50 ML (PMX) 50 ML IVPB SCH ×2 (14:53→21:51)
[2017-06-10] MEDS ORDERED: MIDAZOLAM 1 MG/ML 2 ML INJ ONE (17:39)
[2017-06-10] MEDS ORDERED: PROPOFOL 20 ML ONE (17:39)
[2017-06-10] MEDS ORDERED: LIDOCAINE 2% (SDV) 5 ML INJ ONE (17:39)
[2017-06-10] MEDS ORDERED: FLUMAZENIL 0.5 MG INJ ONE (17:51)
--- NOTE | 2017-06-10 17:57 | OPPN ---
Date/Time of Note Date/Time of Note DATE: 06/10/17 TIME: 17:53 Proc Note GI Procedure Date 06/10/17 Indication: other (Severe anemia/melena) Pre-procedure Diagnosis Severe anemia/melena Post-procedure Diagnosis Impression: Grade III/IV esophageal varices Post endoscopic variceal ligation 5 Erosive esophagitis Gastroparesis Plan: Continue PPI therapy Monitor H&H transfuse for hemoglobin less than 7.5 Reglan 10 mg every 6 hours Clear liquid diet Procedure Performed: Endoscopy (With endoscopic variceal ligation) Surgeon BRANT BUSTILLOS MD See signature line Lidder none Anesthesia Type: MAC Anesthesiologist: TRE JEFFERY DO Tourniquet Time none EBL none Transfusion required none Biopsy 1: None Grafts/Implants Endoscopic variceal ligation Tubes/Drains none Complication(s) none Disposition: PACU Procedure Description Preoperative Diagnosis: After informed consent, with the patient/relatives understanding the procedure, its indications, potential risks and complications, including but not limited to : allergic reaction, bleeding, perforation or infection, and after all pertinent questions were answered to the patients satisfaction, the patient/ relatives signed witnessed informed consent. Following this, premedication was administered slowly IV push under careful cardiovascular and respiratory monitoring with pulse oximetry, automatic blood pressure, and groundwater monitoring technician. Once the sedative effect was achieved the patient was place in the left lateral decubitus, the panendoscope was introduced and advanced under visual control. Careful examination of the upper gastrointestinal tract, both on insertion as well as withdrawal of the instrument disclosing the following findings: ESOPHAGUS: the mucosa of the entire esophagus was carefully examined and showed the following findings: There are grade III/IV esophageal varices. Endoscopic variceal ligation 5 was applied upon completion examination. There is erythema and edema of the mucosa with superficial erosion distal esophagus. Otherwise the mucosa appears within normal limits. There is no evidence of neoplasm, or stricture. No Hiatal Hernia identified. STOMACH: Upon entrance to the stomach air was insufflated, the gastric burton distended normally. The mucosa of the fundus, body and antrum of the stomach was carefully examined both head-on and on retroflexion, and showed the following findings: There is a substantial amount of material is retained in the stomach consistent with gastroparesis. Otherwise the mucosa appears within normal limits with no abnormalities. There is no evidence of gastritis, ulcers or neoplasm. PYLORUS: The pylorus was carefully examined and showed the following findings: the pylorus appears patent and within normal limits, with no evidence of gastric outlet obstruction. DUODENUM: The duodenal mucosa was carefully examined in the duodenal bulb as well as the second portion of the duodenum and showed the following findings: the mucosa appears unremarkable with no evidence of duodenitis, ulcer or neoplasm. Copies To: CC: BRANT BUSTILLOS MD, MORDO MD Jun 10, 2017 17:57
[2017-06-10] MEDS: METOCLOPRAMIDE 10 MG INJ IV SCH ×2 (18:10→23:56)
[2017-06-11] VITALS (12 sets, daily range): BP systolic 107–130; BP diastolic 54–75; PULSE 63–77; RESP 17–20
[2017-06-11] MEDS: IPRATROPIUM (NEB) 0.5 MG/2.5 ML AMP NEB SCH ×6 (01:24→20:15)
[2017-06-11] MEDS: LEVALBUTEROL (NEB) 0.63 MG/3 ML AMP HHN SCH ×6 (01:24→20:15)
[2017-06-11] MEDS: OCTREOTIDE 1 MG in SOD CHLORIDE 0.9% 95 ML IV SCH ×4 (03:08→23:09)
[2017-06-11] MEDS: CEFOTAXIME 2 GM/50 ML (PMX) 50 ML IVPB SCH ×3 (05:41→21:47)
[2017-06-11] MEDS: PANTOPRAZOLE 40 MG INJ IV SCH ×2 (05:41→17:19)
[2017-06-11] MEDS: METOCLOPRAMIDE 10 MG INJ IV SCH ×4 (05:41→23:08)
[2017-06-11 08:15] LABS: ABNORMAL IP MESSAGE 1; BASOPHILS % 0.2 % (0.0-2.0); EOSINOPHILS # 0.1 10^3/ul (0.0-0.5); EOSINOPHILS % 2.3 % (0.0-7.0); HEMOGLOBIN 7.6 g/dl (12.0-16.0); LYMPHOCYTES # 0.7 10^3/ul (0.8-2.9); LYMPHOCYTES % 11.3 % (15.0-51.0); MEAN CORPUSCULAR HEMOGLOBIN 35.5 pg (29.0-33.0); MEAN CORPUSCULAR HGB CONC 31.7 g/dl (32.0-37.0); MEAN CORPUSCULAR VOLUME 112.1 fl (82.0-101.0); MEAN PLATELET VOLUME 10.9 fl (7.4-10.4); MONOCYTE # 0.3 10^3/ul (0.3-0.9); MONOCYTES % 4.6 % (0.0-11.0); NEUTROPHIL # 4.9 10^3/ul (1.6-7.5); NEUTROPHILS % 80.5 % (39.0-77.0); RED BLOOD COUNT 2.14 10^6/ul (4.20-5.40); RED CELL DISTRIBUTION WIDTH 24.7 % (11.5-14.5); WHITE BLOOD COUNT 6.1 10^3/ul (4.8-10.8)
[2017-06-11 08:21] LABS: PLATELET COUNT 45 10^3/UL (140-415); POSITIVE DIFF @See below
[2017-06-11] MEDS: FUROSEMIDE 40 MG INJ IV SCH (09:23)
[2017-06-11] MEDS: SPIRONOLACTONE 25 MG TAB PO SCH (09:23)
--- NOTE | 2017-06-11 10:33 | PN ---
Date/Time of Note Date/Time of Note DATE: 06/11/17 TIME: 10:30 Assessment/Plan VTE Prophylaxis VTE Prophylaxis Intervention: SCD's Lines/Catheters [facility] Peripheral IV Urinary Cath still in place: No Assessment/Plan Chief Complaint/Hosp Course Assessment: Severe anemia/melena EGD 06/10/17 Impression: Grade III/IV esophageal varices Post endoscopic variceal ligation 5 Erosive esophagitis Gastroparesis Cirrhotic liver with ascites SBP on ascitic fluid analysis COPD exacerbation Plan: Continue PPI therapy Monitor H&H transfuse for hemoglobin less than 7.5 Reglan 10 mg every 6 hours Advance diet as tolerated Patient seen in collaboration with Subjective: Course reviewed with nursing staff Patient interviewed and examined All labs, imaging and other results reviewed The patient stable, states she is hungry, tolerating clear liquids well Currently denies any pain, nausea, vomiting. Will advance diet as tolerated, ostomy bag over paracentesis site draining mitch colored fluid. We will continue to monitor if does not stop draining will place pressure dressing Family at bedside Constitutional: alert, oriented, well developed Psych: nl mood/affect, no complaints Head: atraumatic, normocephalic Eyes: EOMI, nl conjunctiva, nl lids ENMT: nl external ears & nose, nl lips & teeth, nl nasal mucosa & septum Neck: non-tender, supple Respiratory: clear to auscultation, normal air movement Cardiovascular: nl pulses, regular rate and rhythm Gastrointestinal: bowel sounds, non-tender, soft, ascites EXT: Bilateral lower extremity edema Problems: Exam/Review of Systems Vital Signs Vitals Vital Signs Date Time Temp Pulse Resp B/P Pulse Ox O2 Delivery O2 Flow Rate FiO2 06/11/17 08:35 72 18 97 Nasal Cannula 2.0 06/11/17 07:54 98.1 109/57 06/10/17 04:04 28 Intake and Output 06/10/17 06/10/17 06/11/17 15:00 23:00 07:00 Intake Total 110 ml 600 ml Balance 110 ml 600 ml Results Result Diagram: 06/11/17 0752 06/10/17 0557 Results 24 hrs Laboratory Tests Test 06/11/17 07:52 White Blood Count 6.1 # Red Blood Count 2.14 L Hemoglobin 7.6 L Hematocrit 24.0 L Mean Corpuscular Volume 112.1 H Mean Corpuscular Hemoglobin 35.5 H Mean Corpuscular Hemoglobin Concent 31.7 L Red Cell Distribution Width 24.7 H Platelet Count 45 L Mean Platelet Volume 10.9 H Neutrophils % 80.5 H Lymphocytes % 11.3 L Monocytes % 4.6 Eosinophils % 2.3 Basophils % 0.2 Nucleated Red Blood Cells % 0.0 Neutrophils # 4.9 Lymphocytes # 0.7 L Monocytes # 0.3 Eosinophils # 0.1 Basophils # 0.0 Nucleated Red Blood Cells # 0.0 Medications Medications Current Medications Acetaminophen (Tylenol Tab) 650 mg Q6H PRN PO PAIN LEVEL 1-3 OR FEVER Last administered on 06/08/17 22:57; Admin Dose 650 MG; Start 06/08/17 at 08:00; Status Future Hold Morphine Sulfate (morphine) 2 mg Q4H PRN IV SEVERE PAIN LEVEL 7-10; Start 06/14 at 08:00 Furosemide (Lasix) 40 mg DAILY IV Last administered on 06/11/17 09:23; Admin Dose 40 MG; Start 06/08/17 at 09:00 Spironolactone (Aldactone) 25 mg DAILY PO Last administered on 06/11/17 09:23 ; Admin Dose 25 MG; Start 06/08/17 at 09:00 Trimethobenzamide HCl (Tigan) 200 mg Q6H PRN IM NAUSEA AND/OR VOMITING; Start 06/08/17 at 11:30 Pantoprazole 40 mg 40 mg BID@06,18 IV Last administered on 06/11/17 05:41; Admin Dose 40 MG; Start 06/09/17 at 18:00 Octreotide Acetate 1 mg/ Sodium Chloride 100 ml @ 5 mls/hr Q20H IV Last administered on 06/11/17 03:10; Admin Dose 5 MLS/HR; Start 06/09/17 at 11:00 Ondansetron HCl 8 mg/Sodium Chloride 54 ml @ 216 mls/hr Q6H PRN IV NAUSEA AND/ OR VOMITING; Start 06/09/17 at 19:00 Cefotaxime Sodium/ Dextrose (Claforan 2gm/50 ml (Pmx)) 50 ml @ 100 mls/hr Q8 IVPB Last administered on 06/11/17 05:41; Admin Dose 100 MLS/HR; Start 06/10 at 14:00 Metoclopramide HCl (Reglan) 10 mg Q6 IV Last administered on 06/11/17t 05:41; Admin Dose 10 MG; Start 06/10/17 at 18:00 HUMPHREY ROBERTS Jun 11, 2017 10:33
--- NOTE | 2017-06-11 21:38 | PN ---
Date/Time of Note Date/Time of Note DATE: 06/11/17 TIME: 21:35 Assessment/Plan VTE Prophylaxis VTE Prophylaxis Intervention: SCD's Lines/Catheters IV Catheter Type (from Nrsg): Peripheral IV Urinary Cath still in place: No Assessment/Plan Assessment/Plan 72 yr old f with rollins cirrhosis admitted for symptomatic ascites found to have sbp and EVs plan cont sbp treatment EV management as per GI consider repeat para fluid eval in am PT and OT evals Subjective 24 Hr Interval Summary Free Text/Dictation pt still leaking from para site Exam/Review of Systems Vital Signs Vitals Vital Signs Date Time Temp Pulse Resp B/P Pulse Ox O2 Delivery O2 Flow Rate FiO2 06/11/17 20:15 61 20 99 Nasal Cannula 2.0 06/11/17 20:00 98.3 111/54 06/10/17 04:04 28 Intake and Output 06/10/17 06/10/17 06/11/17 15:00 23:00 07:00 Intake Total 110 ml 600 ml Balance 110 ml 600 ml Exam nad sitting up,in chair no mrg lungs clear abd distended para site with drainage bag para fluid culture neg Results Result Diagram: 06/11/17 0752 06/10/17 0557 Results 24 hrs Laboratory Tests Test 06/11/17 07:52 White Blood Count 6.1 # Red Blood Count 2.14 L Hemoglobin 7.6 L Hematocrit 24.0 L Mean Corpuscular Volume 112.1 H Mean Corpuscular Hemoglobin 35.5 H Mean Corpuscular Hemoglobin Concent 31.7 L Red Cell Distribution Width 24.7 H Platelet Count 45 L Mean Platelet Volume 10.9 H Neutrophils % 80.5 H Lymphocytes % 11.3 L Monocytes % 4.6 Eosinophils % 2.3 Basophils % 0.2 Nucleated Red Blood Cells % 0.0 Neutrophils # 4.9 Lymphocytes # 0.7 L Monocytes # 0.3 Eosinophils # 0.1 Basophils # 0.0 Nucleated Red Blood Cells # 0.0 Medications Medications Current Medications Acetaminophen (Tylenol Tab) 650 mg Q6H PRN PO PAIN LEVEL 1-3 OR FEVER Last administered on 06/08/17t 22:57; Admin Dose 650 MG; Start 06/08/17 at 08:00; Status Future Hold Morphine Sulfate (morphine) 2 mg Q4H PRN IV SEVERE PAIN LEVEL 7-10; Start 06/14 at 08:00 Furosemide (Lasix) 40 mg DAILY IV Last administered on 06/11/17 09:23; Admin Dose 40 MG; Start 06/08/17 at 09:00 Spironolactone (Aldactone) 25 mg DAILY PO Last administered on 06/11/17 09:23 ; Admin Dose 25 MG; Start 06/08/17 at 09:00 Trimethobenzamide HCl (Tigan) 200 mg Q6H PRN IM NAUSEA AND/OR VOMITING; Start 06/08/17 at 11:30 Pantoprazole 40 mg 40 mg BID@06,18 IV Last administered on 06/11/17 17:19; Admin Dose 40 MG; Start 06/09/17 at 18:00 Octreotide Acetate 1 mg/ Sodium Chloride 100 ml @ 5 mls/hr Q20H IV Last administered on 06/11/17 03:10; Admin Dose 5 MLS/HR; Start 06/09/17 at 11:00 Ondansetron HCl 8 mg/Sodium Chloride 54 ml @ 216 mls/hr Q6H PRN IV NAUSEA AND/ OR VOMITING; Start 06/09/17 at 19:00 Cefotaxime Sodium/ Dextrose (Claforan 2gm/50 ml (Pmx)) 50 ml @ 100 mls/hr Q8 IVPB Last administered on 06/11/17 14:33; Admin Dose 100 MLS/HR; Start 06/10 at 14:00 Metoclopramide HCl (Reglan) 10 mg Q6 IV Last administered on 06/11/17 17:19; Admin Dose 10 MG; Start 06/10/17 at 18:00 MELONY MOLINA MD Jun 11, 2017 21:38
[2017-06-12] VITALS (12 sets, daily range): BP systolic 111–127; BP diastolic 54–75; PULSE 63–72; RESP 18–20
[2017-06-12] MEDS: LEVALBUTEROL (NEB) 0.63 MG/3 ML AMP HHN SCH ×6 (00:41→21:20)
[2017-06-12] MEDS: IPRATROPIUM (NEB) 0.5 MG/2.5 ML AMP NEB SCH ×6 (00:41→21:20)
[2017-06-12] MEDS: CEFOTAXIME 2 GM/50 ML (PMX) 50 ML IVPB SCH ×3 (05:27→22:12)
[2017-06-12] MEDS: METOCLOPRAMIDE 10 MG INJ IV SCH ×3 (05:27→18:10)
[2017-06-12] MEDS: PANTOPRAZOLE 40 MG INJ IV SCH (05:27)
[2017-06-12 08:21] LABS: ABNORMAL IP MESSAGE 1; BASOPHILS % 0.2 % (0.0-2.0); EOSINOPHILS # 0.2 10^3/ul (0.0-0.5); EOSINOPHILS % 3.6 % (0.0-7.0); HEMATOCRIT 24.7 % (37.0-47.0); HEMOGLOBIN 7.9 g/dl (12.0-16.0); LYMPHOCYTES # 0.7 10^3/ul (0.8-2.9); LYMPHOCYTES % 17.3 % (15.0-51.0); MEAN CORPUSCULAR HEMOGLOBIN 35.7 pg (29.0-33.0); MEAN CORPUSCULAR VOLUME 111.8 fl (82.0-101.0); MONOCYTE # 0.4 10^3/ul (0.3-0.9); MONOCYTES % 9.5 % (0.0-11.0); NEUTROPHIL # 2.8 10^3/ul (1.6-7.5); NEUTROPHILS % 67.9 % (39.0-77.0); PLATELET COUNT 47 10^3/UL (140-415); RED BLOOD COUNT 2.21 10^6/ul (4.20-5.40); RED CELL DISTRIBUTION WIDTH 23.2 % (11.5-14.5); WHITE BLOOD COUNT 4.1 10^3/ul (4.8-10.8)
[2017-06-12 08:23] LABS: POSITIVE DIFF @See below
[2017-06-12] MEDS: SPIRONOLACTONE 25 MG TAB PO SCH (08:33)
[2017-06-12] MEDS: FUROSEMIDE 40 MG INJ IV SCH (08:34)
--- NOTE | 2017-06-12 09:18 | PN ---
Date/Time of Note Date/Time of Note DATE: 06/12/17 TIME: 09:15 Assessment/Plan VTE Prophylaxis VTE Prophylaxis Intervention: SCD's Lines/Catheters [facility] Peripheral IV Urinary Cath still in place: No Assessment/Plan Chief Complaint/Hosp Course Assessment: Severe anemia/melena EGD 06/10/17 Impression: Grade III/IV esophageal varices Post endoscopic variceal ligation 5 Erosive esophagitis Gastroparesis Cirrhotic liver with ascites SBP on ascitic fluid analysis COPD exacerbation Plan: Continue PPI therapy Monitor H&H transfuse for hemoglobin less than 7.5 Reglan 10 mg every 6 hours Tolerating soft diet well Patient seen in collaboration with Subjective: Course reviewed with nursing staff Patient interviewed and examined All labs, imaging and other results reviewed The patient is doing well, tolerate diet without difficulty, continues to have drainage from previous paracentesis site poss dx tap today to reevaluate SBP. Will plan to change ostomy bag to pressure dressing in near future. Constitutional: alert, oriented, well developed Psych: nl mood/affect, no complaints Head: atraumatic, normocephalic Eyes: EOMI, nl conjunctiva, nl lids ENMT: nl external ears & nose, nl lips & teeth, nl nasal mucosa & septum Neck: non-tender, supple Respiratory: clear to auscultation, normal air movement Cardiovascular: nl pulses, regular rate and rhythm Gastrointestinal: bowel sounds, non-tender, soft, ascites EXT: Bilateral lower extremity edema Problems: Exam/Review of Systems Vital Signs Vitals Vital Signs Date Time Temp Pulse Resp B/P Pulse Ox O2 Delivery O2 Flow Rate FiO2 06/12/17 08:43 66 16 93 Nasal Cannula 2.0 06/12/17 07:55 98.5 127/58 06/10/17 04:04 28 Intake and Output 06/11/17 06/11/17 06/12/17 15:00 23:00 07:00 Intake Total 600 ml Balance 600 ml Results Result Diagram: 06/12/17 0736 06/10/17 0557 Results 24 hrs Laboratory Tests Test 06/12/17 07:36 White Blood Count 4.1 #L Red Blood Count 2.21 L Hemoglobin 7.9 L Hematocrit 24.7 L Mean Corpuscular Volume 111.8 H Mean Corpuscular Hemoglobin 35.7 H Mean Corpuscular Hemoglobin Concent 32.0 Red Cell Distribution Width 23.2 H Platelet Count 47 L Mean Platelet Volume 11.0 H Neutrophils % 67.9 Lymphocytes % 17.3 Monocytes % 9.5 Eosinophils % 3.6 Basophils % 0.2 Nucleated Red Blood Cells % 0.0 Neutrophils # 2.8 Lymphocytes # 0.7 L Monocytes # 0.4 Eosinophils # 0.2 Basophils # 0.0 Nucleated Red Blood Cells # 0.0 Medications Medications Current Medications Acetaminophen (Tylenol Tab) 650 mg Q6H PRN PO PAIN LEVEL 1-3 OR FEVER Last administered on 06/08/17 22:57; Admin Dose 650 MG; Start 06/08/17 at 08:00; Status Future Hold Morphine Sulfate (morphine) 2 mg Q4H PRN IV SEVERE PAIN LEVEL 7-10; Start 06/14 at 08:00 Furosemide (Lasix) 40 mg DAILY IV Last administered on 06/12/17 08:34; Admin Dose 40 MG; Start 06/08/17 at 09:00 Spironolactone (Aldactone) 25 mg DAILY PO Last administered on 06/12/17 08:33 ; Admin Dose 25 MG; Start 06/08/17 at 09:00 Trimethobenzamide HCl (Tigan) 200 mg Q6H PRN IM NAUSEA AND/OR VOMITING; Start 06/08/17 at 11:30 Pantoprazole 40 mg 40 mg BID@06,18 IV Last administered on 06/12/17 05:27; Admin Dose 40 MG; Start 06/09/17 at 18:00 Octreotide Acetate 1 mg/ Sodium Chloride 100 ml @ 5 mls/hr Q20H IV Last administered on 06/11/17 23:09; Admin Dose 5 MLS/HR; Start 06/09/17 at 11:00 Ondansetron HCl 8 mg/Sodium Chloride 54 ml @ 216 mls/hr Q6H PRN IV NAUSEA AND/ OR VOMITING; Start 06/09/17 at 19:00 Cefotaxime Sodium/ Dextrose (Claforan 2gm/50 ml (Pmx)) 50 ml @ 100 mls/hr Q8 IVPB Last administered on 06/12/17 05:27; Admin Dose 100 MLS/HR; Start 06/10 at 14:00 Metoclopramide HCl (Reglan) 10 mg Q6 IV Last administered on 06/12/17t 05:27; Admin Dose 10 MG; Start 06/10/17 at 18:00 HUMPHREY ROBERTS Jun 12, 2017 09:18
--- NOTE | 2017-06-12 13:11 | PN ---
Date/Time of Note Date/Time of Note DATE: 06/12/17 TIME: 13:10 Assessment/Plan VTE Prophylaxis VTE Prophylaxis Intervention: SCD's Lines/Catheters IV Catheter Type (from Nrsg): Saline Lock Urinary Cath still in place: No Assessment/Plan Assessment/Plan 72 yr old f with rollins cirrhosis admitted for symptomatic ascites found to have sbp and EVs plan cont sbp treatment-->pt will have completed 5 days of therapy tomorrow EV management as per GI consider repeat para fluid eval in am PT and OT evals ordered downgrade from tele to [facility] Subjective 24 Hr Interval Summary Free Text/Dictation pt resting this AM Exam/Review of Systems Vital Signs Vitals Vital Signs Date Time Temp Pulse Resp B/P Pulse Ox O2 Delivery O2 Flow Rate FiO2 06/12/17 12:05 64 06/12/17 11:53 97.9 18 125/58 100 06/12/17 08:43 Nasal Cannula 2.0 06/10/17 04:04 28 Intake and Output 06/11/17 06/11/17 06/12/17 15:00 23:00 07:00 Intake Total 600 ml Balance 600 ml Exam nad no mrg abd still distended and leaking abd soft no rashes Results Result Diagram: 06/12/17 0736 06/10/17 0557 Results 24 hrs Laboratory Tests Test 06/12/17 07:36 White Blood Count 4.1 #L Red Blood Count 2.21 L Hemoglobin 7.9 L Hematocrit 24.7 L Mean Corpuscular Volume 111.8 H Mean Corpuscular Hemoglobin 35.7 H Mean Corpuscular Hemoglobin Concent 32.0 Red Cell Distribution Width 23.2 H Platelet Count 47 L Mean Platelet Volume 11.0 H Neutrophils % 67.9 Lymphocytes % 17.3 Monocytes % 9.5 Eosinophils % 3.6 Basophils % 0.2 Nucleated Red Blood Cells % 0.0 Neutrophils # 2.8 Lymphocytes # 0.7 L Monocytes # 0.4 Eosinophils # 0.2 Basophils # 0.0 Nucleated Red Blood Cells # 0.0 Medications Medications Current Medications Acetaminophen (Tylenol Tab) 650 mg Q6H PRN PO PAIN LEVEL 1-3 OR FEVER Last administered on 06/08/17t 22:57; Admin Dose 650 MG; Start 06/08/17 at 08:00; Status Future Hold Morphine Sulfate (morphine) 2 mg Q4H PRN IV SEVERE PAIN LEVEL 7-10; Start 06/14 at 08:00 Furosemide (Lasix) 40 mg DAILY IV Last administered on 06/12/17 08:34; Admin Dose 40 MG; Start 06/08/17 at 09:00 Spironolactone (Aldactone) 25 mg DAILY PO Last administered on 06/12/17 08:33 ; Admin Dose 25 MG; Start 06/08/17 at 09:00 Trimethobenzamide HCl (Tigan) 200 mg Q6H PRN IM NAUSEA AND/OR VOMITING; Start 06/08/17 at 11:30 Pantoprazole 40 mg 40 mg BID@06,18 IV Last administered on 06/12/17 05:27; Admin Dose 40 MG; Start 06/09/17 at 18:00 Octreotide Acetate 1 mg/ Sodium Chloride 100 ml @ 5 mls/hr Q20H IV Last administered on 06/11/17 23:09; Admin Dose 5 MLS/HR; Start 06/09/17 at 11:00 Ondansetron HCl 8 mg/Sodium Chloride 54 ml @ 216 mls/hr Q6H PRN IV NAUSEA AND/ OR VOMITING; Start 06/09/17 at 19:00 Cefotaxime Sodium/ Dextrose (Claforan 2gm/50 ml (Pmx)) 50 ml @ 100 mls/hr Q8 IVPB Last administered on 06/12/17 05:27; Admin Dose 100 MLS/HR; Start 06/10 at 14:00 Metoclopramide HCl (Reglan) 10 mg Q6 IV Last administered on 06/12/17 12:11; Admin Dose 10 MG; Start 06/10/17 at 18:00 MELONY MOLINA MD Jun 12, 2017 13:11
[2017-06-12] MEDS: PANTOPRAZOLE (EC) 40 MG TAB PO SCH (18:10)
[2017-06-12] MEDS ORDERED: HYDROCODONE/APAP (5/325) TAB PO PRN (21:00)
[2017-06-13 00:15] VITALS: BP 91/51; RESP 20
[2017-06-13] MEDS: IPRATROPIUM (NEB) 0.5 MG/2.5 ML AMP NEB SCH ×6 (01:42→20:19)
[2017-06-13] MEDS: LEVALBUTEROL (NEB) 0.63 MG/3 ML AMP HHN SCH ×6 (01:42→20:19)
[2017-06-13 05:20] LABS: ABNORMAL IP MESSAGE 1; BASOPHILS % 0.6 % (0.0-2.0); EOSINOPHILS # 0.2 10^3/ul (0.0-0.5); EOSINOPHILS % 4.9 % (0.0-7.0); HEMOGLOBIN 8.1 g/dl (12.0-16.0); LYMPHOCYTES # 0.8 10^3/ul (0.8-2.9); LYMPHOCYTES % 23.3 % (15.0-51.0); MEAN CORPUSCULAR HGB CONC 32.4 g/dl (32.0-37.0); MEAN CORPUSCULAR VOLUME 111.1 fl (82.0-101.0); MEAN PLATELET VOLUME 11.5 fl (7.4-10.4); MONOCYTE # 0.5 10^3/ul (0.3-0.9); MONOCYTES % 13.4 % (0.0-11.0); NEUTROPHIL # 1.9 10^3/ul (1.6-7.5); PLATELET COUNT 46 10^3/UL (140-415); RED BLOOD COUNT 2.25 10^6/ul (4.20-5.40); WHITE BLOOD COUNT 3.4 10^3/ul (4.8-10.8)
[2017-06-13 05:25] LABS: POSITIVE DIFF @See below
[2017-06-13 05:49] LABS: CALCIUM 7.6 mg/dl (8.4-10.2); CREATININE 0.65 mg/dl (0.44-1.00); POTASSIUM 4.1 mmol/L (3.5-5.1)
[2017-06-13] MEDS: METOCLOPRAMIDE 10 MG INJ IV SCH ×3 (06:08→12:37)
[2017-06-13] MEDS: PANTOPRAZOLE (EC) 40 MG TAB PO SCH ×2 (06:08→17:04)
[2017-06-13] MEDS: CEFOTAXIME 2 GM/50 ML (PMX) 50 ML IVPB SCH (06:09)
[2017-06-13 08:15] VITALS: BP 117/61; PULSE 55; RESP 14
[2017-06-13] MEDS: SPIRONOLACTONE 25 MG TAB PO SCH (09:18)
[2017-06-13] MEDS: FUROSEMIDE 40 MG INJ IV SCH (09:18)
[2017-06-13] MEDS: FUROSEMIDE 40 MG TAB PO SCH ×2 (10:37→17:07)
--- NOTE | 2017-06-13 10:44 | PN ---
Date/Time of Note Date/Time of Note DATE: 06/13/17 TIME: 10:34 Assessment/Plan VTE Prophylaxis VTE Prophylaxis Intervention: SCD's Lines/Catheters IV Catheter Type (from [facility]): Saline Lock Urinary Cath still in place: No Assessment/Plan Chief Complaint/Hosp Course Assessment: Severe anemia/melena EGD 06/10/17 Impression: Grade III/IV esophageal varices Post endoscopic variceal ligation 5 Erosive esophagitis Gastroparesis Cirrhotic liver with ascites SBP on ascitic fluid analysis- on antibiotic therapy COPD exacerbation Plan: Continue PPI therapy Monitor H&H transfuse for hemoglobin less than 7.5 Reglan 10 mg every 6 hours Continue diet Continue diuretic therapy Apply pressure dressing over paracentesis site-change as needed- Patient seen in collaboration with Subjective: Course reviewed with nursing staff Patient interviewed and examined All labs, imaging and other results reviewed The patient is doing well, tolerate diet without difficulty, no need for additional paracentesis. Will plan to change ostomy bag to pressure dressing today, to stop continuous drainage from previous paracentesis site. Change as needed, if does not close may require surgical consult. Constitutional: alert, oriented, well developed Psych: nl mood/affect, no complaints Head: atraumatic, normocephalic Eyes: EOMI, nl conjunctiva, nl lids ENMT: nl external ears & nose, nl lips & teeth, nl nasal mucosa & septum Neck: non-tender, supple Respiratory: clear to auscultation, normal air movement Cardiovascular: nl pulses, regular rate and rhythm Gastrointestinal: bowel sounds, non-tender, soft, ascites EXT: Bilateral lower extremity edema Problems: Exam/Review of Systems Vital Signs Vitals Vital Signs Date Time Temp Pulse Resp B/P Pulse Ox O2 Delivery O2 Flow Rate FiO2 06/13/17 09:59 2.0 06/13/17 09:58 76 20 95 Nasal Cannula 06/13/17 08:15 97.9 117/61 06/10/17 04:04 28 Intake and Output 06/12/17 06/12/17 06/13/17 15:00 23:00 07:00 Intake Total 100 ml 750 ml 350 ml Output Total 1325 ml 20 ml Balance 100 ml -575 ml 330 ml Results Result Diagram: 06/13/17 0447 06/13/17 0447 Results 24 hrs Laboratory Tests Test 06/12/17 18:25 06/13/17 04:47 Stool Occult Blood POSITIVE White Blood Count 3.4 L Red Blood Count 2.25 L Hemoglobin 8.1 L Hematocrit 25.0 L Mean Corpuscular Volume 111.1 H Mean Corpuscular Hemoglobin 36.0 H Mean Corpuscular Hemoglobin Concent 32.4 Red Cell Distribution Width 22.0 H Platelet Count 46 L Mean Platelet Volume 11.5 H Neutrophils % 54.0 Lymphocytes % 23.3 Monocytes % 13.4 H Eosinophils % 4.9 Basophils % 0.6 Nucleated Red Blood Cells % 0.0 Neutrophils # 1.9 Lymphocytes # 0.8 Monocytes # 0.5 Eosinophils # 0.2 Basophils # 0.0 Nucleated Red Blood Cells # 0.0 Sodium Level 140 Potassium Level 4.1 Chloride Level 105 Carbon Dioxide Level 33 H Anion Gap 6 L Blood Urea Nitrogen 25 H Creatinine 0.65 Glucose Level 130 Calcium Level 7.6 L Medications Medications Current Medications Acetaminophen (Tylenol Tab) 650 mg Q6H PRN PO PAIN LEVEL 1-3 OR FEVER Last administered on 06/08/17 22:57; Admin Dose 650 MG; Start 06/08/17 at 08:00; Status Future Hold Morphine Sulfate (morphine) 2 mg Q4H PRN IV SEVERE PAIN LEVEL 7-10; Start 06/14 at 08:00 Spironolactone (Aldactone) 25 mg DAILY PO Last administered on 06/13/17 09:18 ; Admin Dose 25 MG; Start 06/08/17 at 09:00 Trimethobenzamide HCl 200 mg 200 mg Q6H PRN IM NAUSEA AND/OR VOMITING; Start 06/08/17 at 11:30 Ondansetron HCl 8 mg/Sodium Chloride 54 ml @ 216 mls/hr Q6H PRN IV NAUSEA AND/ OR VOMITING; Start 06/09/17 at 19:00 Cefotaxime Sodium/ Dextrose (Claforan 2gm/50 ml (Pmx)) 50 ml @ 100 mls/hr Q8 IVPB Last administered on 06/13/17 06:09; Admin Dose 100 MLS/HR; Start 06/10 at 14:00 Metoclopramide HCl (Reglan) 10 mg Q6 IV Last administered on 06/13/17 06:08; Admin Dose 10 MG; Start 06/10/17 at 18:00 Pantoprazole (Protonix Tab) 40 mg BID@06,18 PO Last administered on 06/13/17t 06:08; Admin Dose 40 MG; Start 06/12/17 at 18:00 HUMPHREY ROBERTS Jun 13, 2017 10:44
[2017-06-13 12:17] VITALS: BP 107/58; PULSE 60; RESP 14
--- NOTE | 2017-06-13 13:15 | PN ---
Date/Time of Note Date/Time of Note DATE: 06/13/17 TIME: 13:15 Assessment/Plan VTE Prophylaxis VTE Prophylaxis Intervention: SCD's Lines/Catheters IV Catheter Type (from Nrs): Saline Lock Urinary Cath still in place: No Assessment/Plan Assessment/Plan 72 yr old f with rollins cirrhosis admitted for symptomatic ascites found to have sbp with resultant EColi bacteremia and EVs PLAN #SBP/bacteremia pt is sp 5 days of IV abx for SBP, convert to PO levoflox for 2 more days to complete therapy for EColi bacteremia. -will then change to chronic bactrim for SBP prophx #ROLLINS cirrhosis cb EVs cont diuretics no bb given SBP will need outpatient hepatology follow up #subclinical hypothyroid: outpatient follow up dispo: PT advising subacute, CM cs placed Subjective 24 Hr Interval Summary Free Text/Dictation Pt clinically unchanged, still with leaking from para site Exam/Review of Systems Vital Signs Vitals Vital Signs Date Time Temp Pulse Resp B/P Pulse Ox O2 Delivery O2 Flow Rate FiO2 06/13/17 13:07 78 22 96 Nasal Cannula 2.0 28 06/13/17 12:17 98.4 107/58 Intake and Output 06/12/17 06/12/17 06/13/17 15:00 23:00 07:00 Intake Total 100 ml 750 ml 350 ml Output Total 1325 ml 20 ml Balance 100 ml -575 ml 330 ml Exam nad no mrg lungs clear abd obese no rashes LE edema improved from admission Results Result Diagram: 06/13/17 0447 06/13/177 Results 24 hrs Laboratory Tests Test 06/12/17 18:25 06/13/17 04:47 Stool Occult Blood POSITIVE White Blood Count 3.4 L Red Blood Count 2.25 L Hemoglobin 8.1 L Hematocrit 25.0 L Mean Corpuscular Volume 111.1 H Mean Corpuscular Hemoglobin 36.0 H Mean Corpuscular Hemoglobin Concent 32.4 Red Cell Distribution Width 22.0 H Platelet Count 46 L Mean Platelet Volume 11.5 H Neutrophils % 54.0 Lymphocytes % 23.3 Monocytes % 13.4 H Eosinophils % 4.9 Basophils % 0.6 Nucleated Red Blood Cells % 0.0 Neutrophils # 1.9 Lymphocytes # 0.8 Monocytes # 0.5 Eosinophils # 0.2 Basophils # 0.0 Nucleated Red Blood Cells # 0.0 Sodium Level 140 Potassium Level 4.1 Chloride Level 105 Carbon Dioxide Level 33 H Anion Gap 6 L Blood Urea Nitrogen 25 H Creatinine 0.65 Glucose Level 130 Calcium Level 7.6 L Medications Medications Current Medications Acetaminophen (Tylenol Tab) 650 mg Q6H PRN PO PAIN LEVEL 1-3 OR FEVER Last administered on 06/08/17 22:57; Admin Dose 650 MG; Start 06/08/17 at 08:00; Status Future Hold Morphine Sulfate (morphine) 2 mg Q4H PRN IV SEVERE PAIN LEVEL 7-10; Start 06/14 at 08:00 Spironolactone (Aldactone) 25 mg DAILY PO Last administered on 06/13/17 09:18 ; Admin Dose 25 MG; Start 06/08/17 at 09:00 Trimethobenzamide HCl 200 mg 200 mg Q6H PRN IM NAUSEA AND/OR VOMITING; Start 06/08/17 at 11:30 Ondansetron HCl/ Sodium Chloride (Zofran Inj/NS) 54 ml @ 216 mls/hr Q6H PRN IV NAUSEA AND/OR VOMITING; Start 06/09/17 at 19:00 Pantoprazole (Protonix Tab) 40 mg BID@06,18 PO Last administered on 06/13/17 06:08; Admin Dose 40 MG; Start 06/12/17 at 18:00 MELONY MOLINA MD Jun 13, 2017 13:15
[2017-06-13 15:53] VITALS: BP 103/51; RESP 18
[2017-06-13 20:30] VITALS: BP 103/51; RESP 20
[2017-06-14] MEDS: IPRATROPIUM (NEB) 0.5 MG/2.5 ML AMP NEB SCH ×6 (00:54→20:04)
[2017-06-14] MEDS: LEVALBUTEROL (NEB) 0.63 MG/3 ML AMP HHN SCH ×6 (00:54→20:04)
[2017-06-14 02:00] VITALS: BP 116/55; RESP 20
[2017-06-14] MEDS: FUROSEMIDE 40 MG TAB PO SCH ×2 (05:31→17:21)
[2017-06-14] MEDS: PANTOPRAZOLE (EC) 40 MG TAB PO SCH ×2 (05:31→17:21)
[2017-06-14] MEDS: LEVOFLOXACIN 750 MG TABLET PO SCH (05:31)
[2017-06-14 05:36] LABS: ABNORMAL IP MESSAGE 1; HEMATOCRIT 24.3 % (37.0-47.0); HEMOGLOBIN 7.9 g/dl (12.0-16.0); MEAN CORPUSCULAR HEMOGLOBIN 35.7 pg (29.0-33.0); MEAN CORPUSCULAR HGB CONC 32.5 g/dl (32.0-37.0); MEAN PLATELET VOLUME 11.7 fl (7.4-10.4); RED BLOOD COUNT 2.21 10^6/ul (4.20-5.40); RED CELL DISTRIBUTION WIDTH 21.9 % (11.5-14.5); WHITE BLOOD COUNT 3.8 10^3/ul (4.8-10.8)
[2017-06-14 06:49] LABS: PLATELET COUNT 40 10^3/UL (140-415)
[2017-06-14 06:50] LABS: POSITIVE DIFF @See below
[2017-06-14 08:20] VITALS: BP 101/52; PULSE 66; RESP 16
[2017-06-14 08:21] VITALS: BP 101/52; RESP 16
[2017-06-14] MEDS: SPIRONOLACTONE 25 MG TAB PO SCH (08:33)
[2017-06-14 09:42] LABS: ANISOCYTOSIS 3+ (0-0); BASOPHILS % (M) 1 % (0-2); EOSINOPHILS % (M) 5 % (0-7); GIANT THROMBO% (M) 0 % (0-0); HYPOCHROMASIA 1+ (0-0); METAMYELOCYTES %M 1 % (0-0); MONOCYTES % (M) 10 % (0-11); MYELOCYTES % (M) 0 % (0-0); PLATELET ESTIMATE SIG DECREASED; POLYCHROMASIA 3+ (0-0)
[2017-06-14 10:56] LABS: CALCIUM 7.8 mg/dl (8.4-10.2); CREATININE 0.65 mg/dl (0.44-1.00); POTASSIUM 3.9 mmol/L (3.5-5.1)
[2017-06-14 11:48] VITALS: BP 105/52; PULSE 68; RESP 18
--- NOTE | 2017-06-14 11:53 | PN ---
Date/Time of Note Date/Time of Note DATE: 06/14/17 TIME: 11:51 Assessment/Plan VTE Prophylaxis VTE Prophylaxis Intervention: SCD's Lines/Catheters IV [facility] ([facility] Saline Lock Urinary Cath still in place: No Assessment/Plan Chief Complaint/Hosp Course Assessment: Severe anemia/melena EGD 06/10/17 Impression: Grade III/IV esophageal varices Post endoscopic variceal ligation 5 Erosive esophagitis Gastroparesis Cirrhotic liver with ascites SBP on ascitic fluid analysis- on antibiotic therapy COPD exacerbation Plan: Continue PPI therapy Monitor H&H transfuse for hemoglobin less than 7.5 Reglan 10 mg every 6 hours Continue diet Re-applied pressure dressing, change as needed Patient seen in collaboration with Subjective: Course reviewed with nursing staff Patient interviewed and examined All labs, imaging and other results reviewed The patient is doing well, tolerate diet without difficulty, pressure dressing re-applied, minimal leakage, but with vast improvements from yesterday Pt working with Physical therapy tolerated well. Constitutional: alert, oriented, well developed Psych: nl mood/affect, no complaints Head: atraumatic, normocephalic Eyes: EOMI, nl conjunctiva, nl lids ENMT: nl external ears & nose, nl lips & teeth, nl nasal mucosa & septum Neck: non-tender, supple Respiratory: clear to auscultation, normal air movement Cardiovascular: nl pulses, regular rate and rhythm Gastrointestinal: bowel sounds, non-tender, soft, ascites EXT: Bilateral lower extremity edema Problems: Exam/Review of Systems Vital Signs Vitals Vital Signs Date Time Temp Pulse Resp B/P Pulse Ox O2 Delivery O2 Flow Rate FiO2 06/14/17 11:48 98.4 68 18 105/52 100 Nasal Cannula 2.0 06/13/17 16:11 28 Intake and Output 06/13/17 06/13/17 06/14/17 15:00 23:00 07:00 Intake Total 720 ml 350 ml Output Total 75 ml Balance -75 ml 720 ml 350 ml Results Result Diagram: 06/14/17 0449 06/14/17 0500 Results 24 hrs Laboratory Tests Test 06/14/17 04:49 06/14/17 05:00 06/14/17 10:34 White Blood Count 3.8 L Red Blood Count 2.21 L Hemoglobin 7.9 L Hematocrit 24.3 L Mean Corpuscular Volume 110.0 H Mean Corpuscular Hemoglobin 35.7 H Mean Corpuscular Hemoglobin Concent 32.5 Red Cell Distribution Width 21.9 H Platelet Count 40 L Mean Platelet Volume 11.7 H Neutrophils % Segmented Neutrophils % (Manual) 62 Band Neutrophils % (Manual) 1 Lymphocytes % Lymphocytes % (Manual) 21 Monocytes % Monocytes % (Manual) 10 Eosinophils % Eosinophils % (Manual) 5 Basophils % Basophils % (Manual) 1 Metamyelocytes % (manual) 1 H Myelocytes % (Manual) 0 Nucleated Red Blood Cells % 0.0 Neutrophils # Neutrophils # (Manual) 2.4 Band Neutrophils # 0.0 Absolute Lymphocytes (Manual) 0.7 L Lymphocytes # Monocytes # Absolute Monocytes (Manual) 0.3 Eosinophils # Basophils # Basophils # (Manual) 0.0 Metamyelocytes # 0.0 Myelocytes # 0.0 Nucleated Red Blood Cells # Platelet Estimate SIG DECREASED Giant Platelets 0 Polychromasia 3+ Hypochromasia 1+ Anisocytosis 3+ Macrocytosis 3+ Sodium Level 139 Potassium Level 3.9 Chloride Level 100 Carbon Dioxide Level 40 H Anion Gap 3 L Blood Urea Nitrogen 20 Creatinine 0.65 Glucose Level 105 Calcium Level 7.8 L Bedside Glucose 140 Medications Medications Current Medications Acetaminophen (Tylenol Tab) 650 mg Q6H PRN PO PAIN LEVEL 1-3 OR FEVER Last administered on 06/08/17 22:57; Admin Dose 650 MG; Start 06/08/17 at 08:00; Status Future Hold Morphine Sulfate (morphine) 2 mg Q4H PRN IV SEVERE PAIN LEVEL 7-10; Start 06/14 at 08:00 Spironolactone (Aldactone) 25 mg DAILY PO Last administered on 06/14/17 08:33 ; Admin Dose 25 MG; Start 06/08/17 at 09:00 Trimethobenzamide HCl 200 mg 200 mg Q6H PRN IM NAUSEA AND/OR VOMITING; Start 06/08/17 at 11:30 Ondansetron HCl/ Sodium Chloride (Zofran Inj/NS) 54 ml @ 216 mls/hr Q6H PRN IV NAUSEA AND/OR VOMITING; Start 06/09/17 at 19:00 Pantoprazole (Protonix Tab) 40 mg BID@06,18 PO Last administered on 06/14/17 05:31; Admin Dose 40 MG; Start 06/12/17 at 18:00 Levofloxacin (Levaquin) 750 mg DAILY@06 PO Last administered on 06/14/17t 05: 31; Admin Dose 750 MG; Start 06/14/17 at 06:00; Stop 06/16/17 at 05:59 HUMPHREY ROBERTS Jun 14, 2017 11:53
[2017-06-14 15:30] VITALS: BP 109/51; RESP 18
--- NOTE | 2017-06-14 17:38 | PN ---
Date/Time of Note Date/Time of Note DATE: 06/14/17 TIME: 17:36 Assessment/Plan VTE Prophylaxis VTE Prophylaxis Intervention: SCD's Lines/Catheters IV Catheter Type (from Nrs): Saline Lock Urinary Cath still in place: No Assessment/Plan Assessment/Plan 72 yr old f with rollins cirrhosis admitted for symptomatic ascites found to have sbp with resultant EColi bacteremia and EVs PLAN #SBP/bacteremia pt is sp 5 days of IV abx for SBP, convert to PO levoflox for 2 more days to complete therapy for EColi bacteremia. -will then change to chronic bactrim for SBP prophx #macrocytosis, leukocytosis, thrombocytopenia: 2/2 underlying cirrhosis b12, folate nl. TFTs as below #ROLLINS cirrhosis cb EVs cont diuretics no bb given SBP will need outpatient hepatology follow up #subclinical hypothyroid: outpatient follow up dispo: PT advising subacute, CM cs placed pt remains medically stable for transfer to subacute rehab. awaiting CM notification that a JANET has been chosen Subjective 24 Hr Interval Summary Free Text/Dictation Feels better than when she got here Exam/Review of Systems Vital Signs Vitals Vital Signs Date Time Temp Pulse Resp B/P Pulse Ox O2 Delivery O2 Flow Rate FiO2 06/14/17 15:30 98.5 69 18 109/51 99 06/14/17 12:47 Nasal Cannula 2.0 06/13/17 16:11 28 Intake and Output 06/13/17 06/13/17 06/14/17 15:00 23:00 07:00 Intake Total 720 ml 350 ml Output Total 75 ml Balance -75 ml 720 ml 350 ml Exam nad pleasant no mrg lungs clear obese LEs with skin changes suggestive of previous swelling with improvement in swelling (lots of LE wrinkles) Results Result Diagram: 06/14/17 0449 06/14/17 0500 Results 24 hrs Laboratory Tests Test 06/14/17 04:49 06/14/17 05:00 06/14/17 10:34 06/14/17 12:57 White Blood Count 3.8 L Red Blood Count 2.21 L Hemoglobin 7.9 L Hematocrit 24.3 L Mean Corpuscular Volume 110.0 H Mean Corpuscular Hemoglobin 35.7 H Mean Corpuscular Hemoglobin Concent 32.5 Red Cell Distribution Width 21.9 H Platelet Count 40 L Mean Platelet Volume 11.7 H Neutrophils % Segmented Neutrophils % (Manual) 62 Band Neutrophils % (Manual) 1 Lymphocytes % Lymphocytes % (Manual) 21 Monocytes % Monocytes % (Manual) 10 Eosinophils % Eosinophils % (Manual) 5 Basophils % Basophils % (Manual) 1 Metamyelocytes % (manual) 1 H Myelocytes % (Manual) 0 Nucleated Red Blood Cells % 0.0 Neutrophils # Neutrophils # (Manual) 2.4 Band Neutrophils # 0.0 Absolute Lymphocytes (Manual) 0.7 L Lymphocytes # Monocytes # Absolute Monocytes (Manual) 0.3 Eosinophils # Basophils # Basophils # (Manual) 0.0 Metamyelocytes # 0.0 Myelocytes # 0.0 Nucleated Red Blood Cells # Platelet Estimate SIG DECREASED Giant Platelets 0 Polychromasia 3+ Hypochromasia 1+ Anisocytosis 3+ Macrocytosis 3+ Sodium Level 139 Potassium Level 3.9 Chloride Level 100 Carbon Dioxide Level 40 H Anion Gap 3 L Blood Urea Nitrogen 20 Creatinine 0.65 Glucose Level 105 Calcium Level 7.8 L Bedside Glucose 140 131 Test 06/14/17 17:20 Bedside Glucose 137 Medications Medications Current Medications Acetaminophen (Tylenol Tab) 650 mg Q6H PRN PO PAIN LEVEL 1-3 OR FEVER Last administered on 06/08/17 22:57; Admin Dose 650 MG; Start 06/08/17 at 08:00; Status Future Hold Morphine Sulfate (morphine) 2 mg Q4H PRN IV SEVERE PAIN LEVEL 7-10; Start 06/14 at 08:00 Spironolactone (Aldactone) 25 mg DAILY PO Last administered on 06/14/17 08:33 ; Admin Dose 25 MG; Start 06/08/17 at 09:00 Trimethobenzamide HCl 200 mg 200 mg Q6H PRN IM NAUSEA AND/OR VOMITING; Start 06/08/17 at 11:30 Ondansetron HCl/ Sodium Chloride (Zofran Inj/NS) 54 ml @ 216 mls/hr Q6H PRN IV NAUSEA AND/OR VOMITING; Start 06/09/17 at 19:00 Pantoprazole (Protonix Tab) 40 mg BID@06,18 PO Last administered on 06/14/17 17:21; Admin Dose 40 MG; Start 06/12/17 at 18:00 Levofloxacin (Levaquin) 750 mg DAILY@06 PO Last administered on 06/14/17 05: 31; Admin Dose 750 MG; Start 06/14/17 at 06:00; Stop 06/16/17 at 05:59 MELONY MOLINA MD Jun 14, 2017 17:38
[2017-06-14 20:10] VITALS: BP 111/53; RESP 20
[2017-06-15] MEDS: LEVALBUTEROL (NEB) 0.63 MG/3 ML AMP HHN SCH ×6 (00:45→20:01)
[2017-06-15] MEDS: IPRATROPIUM (NEB) 0.5 MG/2.5 ML AMP NEB SCH ×6 (00:45→20:01)
[2017-06-15 03:15] VITALS: BP 88/47; RESP 20
[2017-06-15 03:25] VITALS: BP 100/58; PULSE 62
[2017-06-15 05:28] VITALS: BP 95/59; PULSE 60
[2017-06-15] MEDS: FUROSEMIDE 40 MG TAB PO SCH ×2 (05:28→17:36)
[2017-06-15 05:45] LABS: CALCIUM 7.6 mg/dl (8.4-10.2); CREATININE 0.66 mg/dl (0.44-1.00)
[2017-06-15] MEDS: LEVOFLOXACIN 750 MG TABLET PO SCH (06:38)
[2017-06-15] MEDS: PANTOPRAZOLE (EC) 40 MG TAB PO SCH ×2 (06:38→17:36)
[2017-06-15 08:05] VITALS: BP 98/52; RESP 15
[2017-06-15] MEDS: SPIRONOLACTONE 25 MG TAB PO SCH (09:00)
--- NOTE | 2017-06-15 10:06 | PN ---
Date/Time of Note Date/Time of Note DATE: 06/15/17 TIME: 10:02 Assessment/Plan VTE Prophylaxis VTE Prophylaxis Intervention: ambulation Lines/Catheters IV Catheter Type (from [facility]): Saline Lock Urinary Cath still in place: No Assessment/Plan Chief Complaint/Hosp Course Assessment: Severe anemia/melena EGD 06/10/17 Impression: Grade III/IV esophageal varices Post endoscopic variceal ligation 5 Erosive esophagitis Gastroparesis Cirrhotic liver with ascites SBP on ascitic fluid analysis- on antibiotic therapy COPD exacerbation Plan: Continue PPI therapy Monitor H&H transfuse for hemoglobin less than 7.5 Continue Reglan 10 mg every 6 hours Continue diet Subjective: Course reviewed with nursing staff Patient interviewed and examined All labs, imaging and other results reviewed The patient is doing well, tolerate diet without difficulty minimal leakage, but with vast improvements from yesterday Pt working with Physical therapy tolerated well. Constitutional: alert, oriented, well developed Psych: nl mood/affect, no complaints Head: atraumatic, normocephalic Eyes: EOMI, nl conjunctiva, nl lids ENMT: nl external ears & nose, nl lips & teeth, nl nasal mucosa & septum Neck: non-tender, supple Respiratory: clear to auscultation, normal air movement Cardiovascular: nl pulses, regular rate and rhythm Gastrointestinal: bowel sounds, non-tender, soft, ascites EXT: Bilateral lower extremity edema Problems: Exam/Review of Systems Vital Signs Vitals Vital Signs Date Time Temp Pulse Resp B/P Pulse Ox O2 Delivery O2 Flow Rate FiO2 06/15/17 08:28 71 18 98 Nasal Cannula 2.0 06/15/17 08:05 97.9 98/52 06/13/17 16:11 28 Intake and Output 06/14/17 06/14/17 06/15/17 15:00 23:00 07:00 Intake Total 1160 ml 720 ml Balance 1160 ml 720 ml Results Result Diagram: 06/14/17 0449 06/15/17 0443 Results 24 hrs Laboratory Tests Test 06/14/17 10:34 06/14/17 12:57 06/14/17 17:20 06/15/17 04:43 Bedside Glucose 140 131 137 Sodium Level 139 Potassium Level 4.0 Chloride Level 96 L Carbon Dioxide Level 40 H Anion Gap 7 L Blood Urea Nitrogen 19 Creatinine 0.66 Glucose Level 103 Calcium Level 7.6 L Medications Medications Current Medications Acetaminophen (Tylenol Tab) 650 mg Q6H PRN PO PAIN LEVEL 1-3 OR FEVER Last administered on 06/08/17 22:57; Admin Dose 650 MG; Start 06/08/17 at 08:00; Status Future Hold Morphine Sulfate (morphine) 2 mg Q4H PRN IV SEVERE PAIN LEVEL 7-10; Start 06/14 at 08:00 Spironolactone (Aldactone) 25 mg DAILY PO Last administered on 06/14/17 08:33 ; Admin Dose 25 MG; Start 06/08/17 at 09:00 Trimethobenzamide HCl 200 mg 200 mg Q6H PRN IM NAUSEA AND/OR VOMITING; Start 06/08/17 at 11:30 Ondansetron HCl/ Sodium Chloride (Zofran Inj/NS) 54 ml @ 216 mls/hr Q6H PRN IV NAUSEA AND/OR VOMITING; Start 06/09/17 at 19:00 Pantoprazole (Protonix Tab) 40 mg BID@06,18 PO Last administered on 06/15/17 06:38; Admin Dose 40 MG; Start 06/12/17 at 18:00 Levofloxacin (Levaquin) 750 mg DAILY@06 PO Last administered on 06/15/17 06: 38; Admin Dose 750 MG; Start 06/14/17 at 06:00; Stop 06/16/17 at 05:59 BRANT BUSTILLOS MD Jun 15, 2017 10:06
[2017-06-15 14:38] VITALS: BP 137/62; RESP 18
--- NOTE | 2017-06-15 16:37 | PN ---
Date/Time of Note Date/Time of Note DATE: 06/15/17 TIME: 16:37 Assessment/Plan VTE Prophylaxis VTE Prophylaxis Intervention: SCD's Lines/Catheters IV Catheter Type (from Nrsg): Saline Lock Urinary Cath still in place: No Assessment/Plan Assessment/Plan 72 yr old f with rollins cirrhosis admitted for symptomatic ascites found to have sbp with resultant EColi bacteremia and EVs PLAN #SBP/bacteremia pt is sp 5 days of IV abx for SBP, convert to PO levoflox for 2 more days to complete therapy for EColi bacteremia. -will then change to chronic bactrim for SBP prophx-->this starts tomorrow #macrocytosis, leukocytosis, thrombocytopenia: 2/2 underlying cirrhosis b12, folate nl. TFTs as below #ROLLINS cirrhosis cb EVs cont diuretics no bb given SBP will need outpatient hepatology follow up #subclinical hypothyroid: outpatient follow up dispo: PT advising subacute, CM cs placed pt remains medically stable for transfer to subacute rehab. awaiting CM notification that a JANET has been chosen Subjective 24 Hr Interval Summary Free Text/Dictation feels ok Exam/Review of Systems Vital Signs Vitals Vital Signs Date Time Temp Pulse Resp B/P Pulse Ox O2 Delivery O2 Flow Rate FiO2 06/15/17 14:38 98.1 72 18 137/62 95 06/15/17 14:22 Nasal Cannula 2.0 06/13/17 16:11 28 Intake and Output 06/14/17 06/14/17 06/15/17 15:00 23:00 07:00 Intake Total 1160 ml 720 ml Balance 1160 ml 720 ml Exam nad no mrg lungs clear abd soft no rashes Results Result Diagram: 06/14/17 0449 06/15/17 0443 Results 24 hrs Laboratory Tests Test 06/14/17 17:20 06/15/17 04:43 Bedside Glucose 137 Sodium Level 139 Potassium Level 4.0 Chloride Level 96 L Carbon Dioxide Level 40 H Anion Gap 7 L Blood Urea Nitrogen 19 Creatinine 0.66 Glucose Level 103 Calcium Level 7.6 L Medications Medications Current Medications Acetaminophen (Tylenol Tab) 650 mg Q6H PRN PO PAIN LEVEL 1-3 OR FEVER Last administered on 06/08/17t 22:57; Admin Dose 650 MG; Start 06/08/17 at 08:00; Status Future Hold Morphine Sulfate (morphine) 2 mg Q4H PRN IV SEVERE PAIN LEVEL 7-10; Start 06/14 at 08:00 Spironolactone (Aldactone) 25 mg DAILY PO Last administered on 06/14/17 08:33 ; Admin Dose 25 MG; Start 06/08/17 at 09:00 Trimethobenzamide HCl 200 mg 200 mg Q6H PRN IM NAUSEA AND/OR VOMITING; Start 06/08/17 at 11:30 Ondansetron HCl/ Sodium Chloride (Zofran Inj/NS) 54 ml @ 216 mls/hr Q6H PRN IV NAUSEA AND/OR VOMITING; Start 06/09/17 at 19:00 Pantoprazole (Protonix Tab) 40 mg BID@06,18 PO Last administered on 06/15/17 06:38; Admin Dose 40 MG; Start 06/12/17 at 18:00 Levofloxacin (Levaquin) 750 mg DAILY@06 PO Last administered on 06/15/17 06: 38; Admin Dose 750 MG; Start 06/14/17 at 06:00; Stop 06/16/17 at 05:59 MELONY MOLINA MD Jun 15, 2017 16:37
[2017-06-15 19:33] VITALS: BP 118/60; PULSE 72; RESP 18
[2017-06-16] MEDS: LEVALBUTEROL (NEB) 0.63 MG/3 ML AMP HHN SCH ×6 (00:29→20:13)
[2017-06-16] MEDS: IPRATROPIUM (NEB) 0.5 MG/2.5 ML AMP NEB SCH ×6 (00:29→20:13)
[2017-06-16 02:18] VITALS: BP 101/50; RESP 20
[2017-06-16] MEDS: FUROSEMIDE 40 MG TAB PO SCH ×2 (06:25→17:12)
[2017-06-16] MEDS: PANTOPRAZOLE (EC) 40 MG TAB PO SCH ×2 (06:25→17:08)
[2017-06-16 07:23] VITALS: BP 96/52; RESP 16
[2017-06-16] MEDS: SPIRONOLACTONE 25 MG TAB PO SCH ×2 (10:20→10:33)
[2017-06-16 15:30] VITALS: BP 110/53; RESP 20
--- NOTE | 2017-06-16 16:20 | PN ---
Date/Time of Note Date/Time of Note DATE: 06/16/17 TIME: 16:19 Assessment/Plan VTE Prophylaxis VTE Prophylaxis Intervention: SCD's Lines/Catheters IV Catheter Type (from Nrs): Saline Lock Urinary Cath still in place: No Assessment/Plan Assessment/Plan 72 yr old f with rollins cirrhosis admitted for symptomatic ascites found to have sbp with resultant EColi bacteremia and EVs PLAN #SBP/bacteremia pt is sp 5 days of IV abx for SBP, 2 additional days of PO levoflox for bacteremia from SBP. now on chronic bactrim for SBP prophx #macrocytosis, leukocytosis, thrombocytopenia: 2/2 underlying cirrhosis b12, folate nl. TFTs as below #ROLLINS cirrhosis cb EVs cont diuretics no bb given SBP will need outpatient hepatology follow up, CM consult placed previously #subclinical hypothyroid: outpatient follow up dispo: PT advising subacute, CM cs placed several days ago pt remains medically stable for transfer to subacute rehab. awaiting CM notification that a JANET has been chosen Subjective 24 Hr Interval Summary Free Text/Dictation no issues Exam/Review of Systems Vital Signs Vitals Vital Signs Date Time Temp Pulse Resp B/P Pulse Ox O2 Delivery O2 Flow Rate FiO2 06/16/17 15:30 98.3 68 20 110/53 100 06/16/17 08:51 Nasal Cannula 2.0 06/13/17 16:11 28 Intake and Output 06/15/17 06/15/17 06/16/17 14:59 22:59 06:59 Intake Total 920 ml 700 ml Output Total 850 ml Balance 920 ml -150 ml Exam nad no mrg lungs clear abd soft no new le edema labs reviewed Results Result Diagram: 06/14/17 0449 06/15/17 0443 Medications Medications Current Medications Acetaminophen (Tylenol Tab) 650 mg Q6H PRN PO PAIN LEVEL 1-3 OR FEVER Last administered on 06/08/17 22:57; Admin Dose 650 MG; Start 06/08/17 at 08:00; Status Future Hold Morphine Sulfate (morphine) 2 mg Q4H PRN IV SEVERE PAIN LEVEL 7-10; Start 06/14 at 08:00 Spironolactone (Aldactone) 25 mg DAILY PO Last administered on 06/16/17 10:33 ; Admin Dose 25 MG; Start 06/08/17 at 09:00 Trimethobenzamide HCl 200 mg 200 mg Q6H PRN IM NAUSEA AND/OR VOMITING; Start 06/08/17 at 11:30 Ondansetron HCl/ Sodium Chloride (Zofran Inj/NS) 54 ml @ 216 mls/hr Q6H PRN IV NAUSEA AND/OR VOMITING; Start 06/09/17 at 19:00 Pantoprazole (Protonix Tab) 40 mg BID@06,18 PO Last administered on 06/16/17t 06:25; Admin Dose 40 MG; Start 06/12/17 at 18:00 MELONY MOLINA MD Jun 16, 2017 16:20
[2017-06-16 20:40] VITALS: BP 107/56; RESP 18
[2017-06-17] MEDS: LEVALBUTEROL (NEB) 0.63 MG/3 ML AMP HHN SCH ×4 (01:56→14:10)
[2017-06-17] MEDS: IPRATROPIUM (NEB) 0.5 MG/2.5 ML AMP NEB SCH ×5 (01:56→18:18)
[2017-06-17 02:33] VITALS: BP 91/51; RESP 20
[2017-06-17] MEDS: PANTOPRAZOLE (EC) 40 MG TAB PO SCH ×2 (04:46→17:22)
[2017-06-17] MEDS: FUROSEMIDE 40 MG TAB PO SCH (04:46)
[2017-06-17 07:51] VITALS: BP 95/54; RESP 16
[2017-06-17] MEDS: SPIRONOLACTONE 25 MG TAB PO SCH (09:22)
[2017-06-17] MEDS: TRIMETHOPRIM/SULFAMETHOX (DS) TAB PO SCH (09:22)
[2017-06-17] MEDS ORDERED: SOD CHLORIDE 0.9% 250 ML IV* ONE (15:28)
--- NOTE | 2017-06-17 15:28 | PN ---
Date/Time of Note Date/Time of Note DATE: 06/17/17 TIME: 15:24 Assessment/Plan VTE Prophylaxis VTE Prophylaxis Intervention: SCD's Lines/Catheters IV Catheter Type (from Nrsg): Saline Lock Urinary Cath still in place: No Assessment/Plan Chief Complaint/Hosp Course Assessment/Plan; 72 yr old f with rollins cirrhosis admitted for symptomatic ascites found to have sbp with resultant EColi bacteremia and EVs 1. SBP/bacteremia - pt is sp 5 days of IV abx for SBP, 2 additional days of PO levoflox for bacteremia from SBP. - now on chronic bactrim for SBP prophx as patient did have GI bleed and has relatively low ascitic protein levels, although no renal insufficiency. 2. Thrombocytopenia: 2/2 underlying cirrhosis. No present signs of bleeding Monitor CBC 3. ROLLINS cirrhosis cb EVs cont diuretics no bb given SBP will need outpatient hepatology follow up, CM consult placed previously 4. subclinical hypothyroid: outpatient follow up 5. Anemia: Given history of recent GI bleed, will order for 2 unit PRBC transfusion today dispo: PT advising subacute, CM cs placed several days ago -but patient refusing placement, likely home with home health PT when medically ready Problems: Subjective 24 Hr Interval Summary Free Text/Dictation No acute events overnight, patient asking when she can go home instead of alf facility. Exam/Review of Systems Vital Signs Vitals Vital Signs Date Time Temp Pulse Resp B/P Pulse Ox O2 Delivery O2 Flow Rate FiO2 06/17/17 14:00 70 18 98 Nasal Cannula 06/17/17 08:00 2.0 06/17/17 07:51 97.8 95/54 06/13/17 16:11 28 Intake and Output 06/16/17 06/16/17 06/17/17 15:00 23:00 07:00 Intake Total 1160 ml 1000 ml Balance 1160 ml 1000 ml Exam Lying in bed, Nad no mrg lungs clear abd soft no new le edema Results Result Diagram: 06/14/17 0449 06/15/17 044 Medications Medications Current Medications Acetaminophen (Tylenol Tab) 650 mg Q6H PRN PO PAIN LEVEL 1-3 OR FEVER Last administered on 06/08/17t 22:57; Admin Dose 650 MG; Start 06/08/17 at 08:00; Status Future Hold Morphine Sulfate (morphine) 2 mg Q4H PRN IV SEVERE PAIN LEVEL 7-10; Start 06/14 at 08:00 Trimethobenzamide HCl 200 mg 200 mg Q6H PRN IM NAUSEA AND/OR VOMITING; Start 06/08/17 at 11:30 Ondansetron HCl/ Sodium Chloride (Zofran Inj/NS) 54 ml @ 216 mls/hr Q6H PRN IV NAUSEA AND/OR VOMITING; Start 06/09/17 at 19:00 Pantoprazole (Protonix Tab) 40 mg BID@06,18 PO Last administered on 06/17/17 04:46; Admin Dose 40 MG; Start 06/12/17 at 18:00 Trimethoprim/ Sulfamethoxazole (Bactrim (Ds)) 1 tab DAILY PO Last administered on 06/17/17 09:22; Admin Dose 1 TAB; Start 06/17/17 at 09:00 Furosemide (Lasix) 40 mg DAILY PO ; Start 06/18/17 at 09:00 Spironolactone (Aldactone) 50 mg DAILY PO ; Start 06/18/17 at 09:00 JUDY PEREZ 20, 2017 15:28
[2017-06-17] MEDS ORDERED: LEVALBUTEROL (NEB) 0.63 MG/3 ML AMP HHN PRN (15:30)
[2017-06-17 16:13] VITALS: BP 109/57; RESP 18
[2017-06-17] MEDS ORDERED: IPRATROPIUM (NEB) 0.5 MG/2.5 ML AMP HHN PRN (20:00)
[2017-06-17 20:37] VITALS: BP 127/60; RESP 19
[2017-06-18 02:10] VITALS: BP 105/56; RESP 18
[2017-06-18] MEDS: PANTOPRAZOLE (EC) 40 MG TAB PO SCH ×2 (05:03→17:46)
[2017-06-18 05:07] VITALS: BP 126/56; PULSE 76; RESP 18
[2017-06-18 05:22] LABS: ABNORMAL IP MESSAGE 1; BASOPHILS % 0.6 % (0.0-2.0); EOSINOPHILS # 0.2 10^3/ul (0.0-0.5); EOSINOPHILS % 4.3 % (0.0-7.0); HEMATOCRIT 29.6 % (37.0-47.0); LYMPHOCYTES # 0.9 10^3/ul (0.8-2.9); LYMPHOCYTES % 24.7 % (15.0-51.0); MEAN CORPUSCULAR HEMOGLOBIN 35.3 pg (29.0-33.0); MEAN CORPUSCULAR HGB CONC 33.8 g/dl (32.0-37.0); MEAN CORPUSCULAR VOLUME 104.6 fl (82.0-101.0); MEAN PLATELET VOLUME 11.3 fl (7.4-10.4); MONOCYTE # 0.5 10^3/ul (0.3-0.9); MONOCYTES % 14.5 % (0.0-11.0); NEUTROPHIL # 1.9 10^3/ul (1.6-7.5); NEUTROPHILS % 54.5 % (39.0-77.0); RED BLOOD COUNT 2.83 10^6/ul (4.20-5.40); RED CELL DISTRIBUTION WIDTH 22.4 % (11.5-14.5); WHITE BLOOD COUNT 3.5 10^3/ul (4.8-10.8)
[2017-06-18 05:41] LABS: CALCIUM 8.1 mg/dl (8.4-10.2); CREATININE 0.61 mg/dl (0.44-1.00); POTASSIUM 4.3 mmol/L (3.5-5.1)
[2017-06-18 05:43] LABS: PLATELET COUNT 35 10^3/UL (140-415); POSITIVE DIFF @See below
[2017-06-18] MEDS: TRIMETHOPRIM/SULFAMETHOX (DS) TAB PO SCH (08:29)
[2017-06-18 08:35] VITALS: BP 112/51; RESP 18
[2017-06-18] MEDS ORDERED: SPIRONOLACTONE 50 MG TAB PO SCH (09:00)
[2017-06-18] MEDS ORDERED: FUROSEMIDE 40 MG TAB PO SCH (09:00)
[2017-06-18 14:59] VITALS: BP 111/59; RESP 19
--- NOTE | 2017-06-18 15:05 | PDOCDIS ---
Discharge Instructions CONDITION Patient Condition: Stable HOME CARE INSTRUCTIONS: Special Diet: carb controlled ACTIVITY: Activity Restrictions: Slowly Increase Activity FOLLOW UP/APPOINTMENTS Follow-up Plan Please take your medications as prescribed. Please see your doctor in the clinic in the next 1 week. JUDY PEREZ Jun 18, 2017 15:05
[2017-06-18] MEDS ORDERED: ALBU8.5H3 INH (15:07)
[2017-06-18] MEDS ORDERED: SULF-182 PO (15:07)
[2017-06-18] MEDS ORDERED: SPIR50TA PO (15:07)
[2017-06-18] MEDS ORDERED: FURO40TA4 PO (15:07)
[2017-06-18] MEDS ORDERED: PANT40TA4 PO (15:07)
--- NOTE | 2017-06-18 15:14 | DS ---
Date/Time of Note Date/Time of Note DATE: 06/18/17 TIME: 15:07 Discharge Summary Admission/Discharge Info Admit Date/Time Jun 08, 2017 at 06:27 Discharge Date/Time Discharge Diagnosis 1. SBP/bacteremia - pt is sp 5 days of IV abx for SBP - now on chronic bactrim for SBP prophx as patient did have GI bleed and has relatively low ascitic protein levels, although no renal insufficiency. 2. Thrombocytopenia: 2/2 underlying cirrhosis. No present signs of bleeding Monitor 3. GUARDADO cirrhosis cb EVs 4. Severe anemia/melena: Status post EGD with grade 3 out of 4 esophageal varices status post ligation performed. 5. subclinical hypothyroid: outpatient follow up 6. Anemia-status post PRBC transfusion. Patient Condition: Stable Hospital Course Patient was given breathing treatments, also found with the beer anemia and melena 72-year-old female with a history of COPD, CHF, diabetes, hypothyroidism , dyslipidemia and cirrhosis who presented to the ER complaining of shortness of breath, cough, bilateral lower extremity swelling and wheezing. Patient's daughter, the bedside provided information as well. Cough is dry. Patient denied chest pain, fever, chills, nausea or vomiting. When she presented to the ER she was febrile with a temperature 102, tachycardic with a heart rate of 111 and tachypneic with a respiratory rate of 24. Chest x-ray shows chronic lung change. Abdominal ultrasound shows cirrhotic liver with mild to moderate ascites. She was admitted seen by GI team during this hospital stay. As stool occult test was positive, underwent EGD with grade 3 out of 4 esophageal varices found, underwent ligation, started on PPI after that, patient tolerated procedure well. Patient also underwent paracentesis as well during this hospital stay, 2 L removed, diagnosed with SBP, placed on antibiotics for that. One blood culture blood test was positive for E. coli as well, improved with antibiotics, over the course of her hospital stay able to ambulate with assistance, tolerated p.o. diet, labs were stable as well, and will be discharged home today improved condition with home health physical therapy. Patient is recommended to follow-up with outpatient coil spring assembler and monitor for any signs of bleeding, follow with primary care doctor as well in 1 week. See below for full list of discharge medications. Home Meds Active Scripts Albuterol Sulfate* (Proair HFA*) 8.5 Gm Hfa.aer.ad, 2 PUFF INH Q4, #1 INHALER 1 Refill Prov:JUDY PEREZ S. 06/18/17 Spironolactone* (Aldactone*) 50 Mg Tablet, 50 MG PO DAILY, #30 TAB 3 Refills Prov:JUDY PEREZ S. 06/18/17 Pantoprazole* (Pantoprazole*) 40 Mg Tablet.dr, 40 MG PO BID@06,18, #60 2 Refills Prov:JUDY PEREZ S. 06/18/17 Furosemide* (Furosemide*) 40 Mg Tablet, 40 MG PO DAILY, #30 TAB 2 Refills Prov:JUDY PEREZ S. 06/18/17 Sulfamethoxazole/Trimethoprim (Sulfamethoxazole-Tmp Ds Tablet) 1 Each Tablet, 1 TAB PO DAILY, #30 TAB 1 Refill Prov:JUDY PEREZ S. 06/18/17 Follow-up Plan Please take your medications as prescribed. Please see your doctor in the clinic in the next 1 week. Primary Care Provider Kirby Porter Time spent on discharge: > 30 minutes Pending Labs Laboratory Tests Test 06/18/17 04:49 White Blood Count 3.510^3/ul (4.8-10.8) Red Blood Count 2.8310^6/ul (4.20-5.40) Hemoglobin 10.0g/dl (12.0-16.0) Hematocrit 29.6% (37.0-47.0) Mean Corpuscular Volume 104.6fl (82.0-101.0) Mean Corpuscular Hemoglobin 35.3pg (29.0-33.0) Mean Corpuscular Hemoglobin Concent 33.8g/dl (32.0-37.0) Red Cell Distribution Width 22.4% (11.5-14.5) Platelet Count 3510^3/UL (140-415) Mean Platelet Volume 11.3fl (7.4-10.4) Neutrophils % 54.5% (39.0-77.0) Lymphocytes % 24.7% (15.0-51.0) Monocytes % 14.5% (0.0-11.0) Eosinophils % 4.3% (0.0-7.0) Basophils % 0.6% (0.0-2.0) Nucleated Red Blood Cells % 0.0/100WBC (0.0-0.0) Neutrophils # 1.910^3/ul (1.6-7.5) Lymphocytes # 0.910^3/ul (0.8-2.9) Monocytes # 0.510^3/ul (0.3-0.9) Eosinophils # 0.210^3/ul (0.0-0.5) Basophils # 0.010^3/ul (0.0-0.1) Nucleated Red Blood Cells # 0.010^3/ul (0.0-0.0) Sodium Level 132mmol/L (135-144) Potassium Level 4.3mmol/L (3.5-5.1) Chloride Level 96mmol/L (97-110) Carbon Dioxide Level 35mmol/L (21-31) Anion Gap 5 (8-16) Blood Urea Nitrogen 17mg/dl (7-20) Creatinine 0.61mg/dl (0.44-1.00) Glucose Level 92mg/dl (70-220) Calcium Level 8.1mg/dl (8.4-10.2) JUDY PEREZ Jun 18, 2017 15:14
--- NOTE | 2017-06-18 16:22 | PN ---
Date/Time of Note Date/Time of Note DATE: 06/18/17 TIME: 16:04 Assessment/Plan VTE Prophylaxis VTE Prophylaxis Intervention: ambulation Lines/Catheters [facility] Saline Lock Urinary Cath still in place: No Assessment/Plan Chief Complaint/Hosp Course Assessment: Severe anemia/melena EGD 06/10/17 Impression: Grade III/IV esophageal varices Post endoscopic variceal ligation 5 Erosive esophagitis Gastroparesis Cirrhotic liver with ascites SBP on ascitic fluid analysis- on antibiotic therapy COPD exacerbation Pancytopenia Plan: Continue PPI therapy Monitor H&H transfuse for hemoglobin less than 7.5 Continue Reglan 10 mg every 6 hours Continue diet At this time will sign off to hospitalist for pending discharge from the hospital. Subjective: Course reviewed with nursing staff Patient interviewed and examined All labs, imaging and other results reviewed The patient is doing well, Reports good appetite, currently on diabetic diet. Pt working with Physical therapy tolerated well. Bowel movements are normal ( the color was previously dark, returned to brown color), urine is the "color of tea". Denies pain in the abdomen or at the paracentesis site. Reports epigastric discomfort when taking medication on the empty stomach. Patient doesn't want to be transferred to rehab, wants to go home. Patient is ambulatory receiving physical therapy. H&H are trending up. Constitutional: alert, oriented, well developed Psych: nl mood/affect, no complaints Head: atraumatic, normocephalic Eyes: EOMI, nl conjunctiva, nl lids ENMT: nl external ears & nose, nl lips & teeth, nl nasal mucosa & septum Neck: non-tender, supple Respiratory: clear to auscultation, normal air movement Cardiovascular: nl pulses, regular rate and rhythm Gastrointestinal: Abdomen obese, distended due to ascites, non-tender, large umbilical hernia is present. Paracentesis site is healed, no discharge, dressing is dry. EXT: Bilateral lower extremity edema Problems: Exam/Review of Systems Vital Signs Vitals Vital Signs Date Time Temp Pulse Resp B/P Pulse Ox O2 Delivery O2 Flow Rate FiO2 06/18/17 14:59 98.0 69 19 111/59 98 06/18/17 05:07 Room Air 06/17/17 21:28 2.0 Intake and Output 06/17/17 06/17/17 06/18/17 15:00 23:00 07:00 Intake Total 1050 ml 1550 ml Balance 1050 ml 1550 ml Results Result Diagram: 06/18/17 0449 06/18/17 0449 Results 24 hrs Laboratory Tests Test 06/18/17 04:49 White Blood Count 3.5 L Red Blood Count 2.83 #L Hemoglobin 10.0 #L Hematocrit 29.6 #L Mean Corpuscular Volume 104.6 H Mean Corpuscular Hemoglobin 35.3 H Mean Corpuscular Hemoglobin Concent 33.8 Red Cell Distribution Width 22.4 H Platelet Count 35 L Mean Platelet Volume 11.3 H Neutrophils % 54.5 Lymphocytes % 24.7 Monocytes % 14.5 H Eosinophils % 4.3 Basophils % 0.6 Nucleated Red Blood Cells % 0.0 Neutrophils # 1.9 Lymphocytes # 0.9 Monocytes # 0.5 Eosinophils # 0.2 Basophils # 0.0 Nucleated Red Blood Cells # 0.0 Sodium Level 132 L Potassium Level 4.3 Chloride Level 96 L Carbon Dioxide Level 35 H Anion Gap 5 L Blood Urea Nitrogen 17 Creatinine 0.61 Glucose Level 92 Calcium Level 8.1 L Medications Medications Current Medications Acetaminophen (Tylenol Tab) 650 mg Q6H PRN PO PAIN LEVEL 1-3 OR FEVER Last administered on 06/08/17 22:57; Admin Dose 650 MG; Start 06/08/17 at 08:00; Status Future Hold Morphine Sulfate (morphine) 2 mg Q4H PRN IV SEVERE PAIN LEVEL 7-10; Start 06/14 at 08:00 Trimethobenzamide HCl 200 mg 200 mg Q6H PRN IM NAUSEA AND/OR VOMITING; Start 06/08/17 at 11:30 Ondansetron HCl/ Sodium Chloride (Zofran Inj/NS) 54 ml @ 216 mls/hr Q6H PRN IV NAUSEA AND/OR VOMITING; Start 06/09/17 at 19:00 Pantoprazole (Protonix Tab) 40 mg BID@06,18 PO Last administered on 06/18/17 05:03; Admin Dose 40 MG; Start 06/12/17 at 18:00 Trimethoprim/ Sulfamethoxazole (Bactrim (Ds)) 1 tab DAILY PO Last administered on 06/18/17 08:29; Admin Dose 1 TAB; Start 06/17/17 at 09:00 Furosemide (Lasix) 40 mg DAILY PO Last administered on 06/18/17 08:33; Admin Dose 40 MG; Start 06/18/17 at 09:00 Spironolactone (Aldactone) 50 mg DAILY PO Last administered on 06/18/17 08:33 ; Admin Dose 50 MG; Start 06/18/17 at 09:00 TOBI ROMERO NP Jun 18, 2017 16:16
== END 2017-06-18 20:50 | disposition home health service (06) | DRG 871 ==
LOC: E/R 03:23 → TEL 06:27 → UNDOADMIN 09:06 → TEL 09:06 → MS1 06-12 16:10
PROVIDERS: ADMIT Internal Medicine; ATTEND Internal Medicine
PROC: 0W9G3ZX Drainage of Peritoneal Cavity, Percutaneous Approach, Diagnostic (ICD-10-PCS; 2017-06-08)
PROC: 30233N1 Transfusion of Nonautologous Red Blood Cells into Peripheral Vein, Percutaneous Approach (ICD-10-PCS; 2017-06-09)
PROC: 30233R1 Transfusion of Nonautologous Platelets into Peripheral Vein, Percutaneous Approach (ICD-10-PCS; 2017-06-09)
PROC: 06L38ZZ Occlusion of Esophageal Vein, Via Natural or Artificial Opening Endoscopic (ICD-10-PCS; principal; 2017-06-10 19:30)
DX: A41.9 Sepsis, unspecified organism (principal); I85.01 Esophageal varices with bleeding; D61.818 Other pancytopenia; K22.11 Ulcer of esophagus with bleeding; K65.2 Spontaneous bacterial peritonitis; K31.84 Gastroparesis; K74.69 Other cirrhosis of liver; J44.1 Chronic obstructive pulmonary disease with (acute) exacerbation; E11.43 Type 2 diabetes mellitus with diabetic autonomic (poly)neuropathy; K92.1 Melena; E03.9 Hypothyroidism, unspecified; K75.81 Nonalcoholic steatohepatitis (NASH); B96.20 Unspecified Escherichia coli [E. coli] as the cause of diseases classified elsewhere; Z79.4 Long term (current) use of insulin
CPT/HCPCS: 36415; 36430; 71010; 76705; 80048; 80053; 80061; 81001; 81003; 82042; 82150; 82270; 82550; 82553; 82607; 82746; 82945; 82962; 83036; 83605; 83615; 83735; 83986; 84100; 84157; 84425; 84439; 84443; 84484; 85025; 85049; 85362; 85378; 85384; 85610; 85670; 85730; 86644; 86704; 86709; 86803; 86850; 86900; 86901; 86920; 87040; 87070; 87086; 87102; 87116; 87340; 87400; 89051; 93005; 93306; 93970; 94640; 94664; 96374; 97003; 97110; 97116; 97162; 97167; 97530; 97535; J1940; C9113; J0692; J0698; J1644; J1956; J2250; J2270; J2405; J2765; J3250; J3475; J7030; J7040; P9016; P9035; P9047; P9612

== ENCOUNTER 2017-07-09 12:59 | Emergency (ER) | payer OTHER, MEDICAID ==
[~2017-07-09] VITALS: Ht 160 cm; Wt 73.0 kg
[~2017-07-09 12:59] MED LIST: ALBU8.5H3 INH; FURO40TA4 PO; PANT40TA4 PO; SPIR50TA PO; SULF-182 PO
[2017-07-09 13:03] VITALS: Ht 160 cm; Wt 73.0 kg
--- NOTE | 2017-07-09 15:14 | ERD ---
ER Documentation Chief Complaint Chief Complaint ap with n/v x 3 days HPI The patient is a 72-year-old female, presenting to the ER because of nausea, vomiting, diarrhea for the last 3 days. She denies fever, chills, P, near syncope, chest pain, dyspnea, abdominal pain. He denies hematemesis, hematochezia, complaints of dysuria. She does not smoke nor drink Past medical history: COPD, diabetes mellitus, history of CHF, cirrhosis, thrombocytopenia, anemia Past surgical history: Cholecystectomy ROS All systems reviewed and are negative except as per history of present illness. Medications Home Meds Active Scripts Loperamide Hcl* (Imodium*) 2 Mg Capsule, 2 MG PO .AFTER EA LOOSE BM Y for DIARRHEA, #10 TAB Prov:VANDANA CORDOVA MD 07/09/17 Ondansetron (Ondansetron Odt) 4 Mg Tab.rapdis, 4 MG PO Q6H Y for NAUSEA AND/OR VOMITING, #10 TAB Prov:VANDANA CORDOVA MD 07/09/17 Ciprofloxacin Hcl* (Ciprofloxacin Hcl*) 500 Mg Tablet, 500 MG PO BID for 7 Days , TAB Prov:VANDANA CORDOVA MD 07/09/17 Spironolactone* (Aldactone*) 50 Mg Tablet, 50 MG PO DAILY, #30 TAB 3 Refills Prov:JUDY PEREZ S. 06/18/17 Pantoprazole* (Pantoprazole*) 40 Mg Tablet.dr, 40 MG PO BID@06,18, #60 2 Refills Prov:JUDY PEREZ S. 06/18/17 Furosemide* (Furosemide*) 40 Mg Tablet, 40 MG PO DAILY, #30 TAB 2 Refills Prov:JUDY PEREZ. 06/18/17 Sulfamethoxazole/Trimethoprim (Sulfamethoxazole-Tmp Ds Tablet) 1 Each Tablet, 1 TAB PO DAILY, #30 TAB 1 Refill Prov:JUDY PEREZ S. 06/18/17 Discontinued Scripts Albuterol Sulfate* (Proair HFA*) 8.5 Gm Hfa.aer.ad, 2 PUFF INH Q4, #1 INHALER 1 Refill Prov:JUDY PEREZ. 06/18/17 Allergies Allergies: Coded Allergies: No Known Allergy (Unverified , 07/09/17) PMhx/Soc Anesthesia Reaction: No Hx Neurological Disorder: No Hx Respiratory Disorders: Yes (COPD ) Hx Cardiac Disorders: No Hx Psychiatric Problems: No Hx Miscellaneous Medical Probl: Yes (obsesity, DM, CHF) Hx Alcohol Use: No Hx Substance Use: No Hx Tobacco Use: No Physical Exam Vitals Vital Signs Date Time Temp Pulse Resp B/P Pulse Ox O2 Delivery O2 Flow Rate FiO2 07/09/17 17:00 98.1 76 18 128/76 96 07/09/17 14:52 98.1 78 18 124/78 96 07/09/17 13:03 97.8 78 18 118/55 96 Physical Exam Const: No acute distress. Dehydrated Head: Atraumatic. Eyes: Normal Conjunctiva. ENT: Normal External Ears, Nose and Mouth. Neck: Full range of motion. No meningismus. Resp: Clear to auscultation bilaterally. Cardio: Regular rate and rhythm. Abd: Soft, non distended, normal bowel sounds, non tender. Skin: No petechiae or rashes. Back: No midline or flank tenderness. Ext: No cyanosis, or edema. Neur: Awake and alert. No focal deficit Psych: Normal Mood and Affect. Result Diagram: 07/09/17 1520 07/09/17 1520 Results 24 hrs Laboratory Tests Test 07/09/17 15:20 07/09/17 16:20 White Blood Count 5.310^3/ul Red Blood Count 3.6310^6/ul Hemoglobin 13.4g/dl Hematocrit 38.2% Mean Corpuscular Volume 105.2fl Mean Corpuscular Hemoglobin 36.9pg Mean Corpuscular Hemoglobin Concent 35.1g/dl Red Cell Distribution Width 20.5% Platelet Count 5110^3/UL Mean Platelet Volume 10.3fl Neutrophils % % Segmented Neutrophils % (Manual) 75% Lymphocytes % % Lymphocytes % (Manual) 16% Monocytes % % Monocytes % (Manual) 9% Eosinophils % % Basophils % % Nucleated Red Blood Cells % 0.0/100WBC Neutrophils # 10^3/ul Absolute Lymphocytes (Manual) 0.810^3/ul Lymphocytes # 10^3/ul Monocytes # 10^3/ul Absolute Monocytes (Manual) 0.410^3/ul Eosinophils # 10^3/ul Basophils # 10^3/ul Nucleated Red Blood Cells # 10^3/ul Giant Platelets 1% Platelet Morphology Comment @See below Poikilocytosis 1+ Anisocytosis 2+ Sodium Level 133mmol/L Potassium Level 4.7mmol/L Chloride Level 95mmol/L Carbon Dioxide Level 27mmol/L Anion Gap 16 Blood Urea Nitrogen 31mg/dl Creatinine 0.96mg/dl Glucose Level 120mg/dl Calcium Level 9.6mg/dl Total Bilirubin 5.3mg/dl Direct Bilirubin 0.10mg/dl Indirect Bilirubin 5.2mg/dl Aspartate Amino Transf (AST/SGOT) 57IU/L Alanine Aminotransferase (ALT/SGPT) 42IU/L Alkaline Phosphatase 139IU/L Total Protein 8.8g/dl Albumin 3.4g/dl Globulin 5.40g/dl Albumin/Globulin Ratio 0.62 Lipase 194U/L Urine Color EDIL Urine Clarity CLEAR Urine pH 5.0 Urine Specific [place] 1.019 Urine Ketones TRACEmg/dL Urine Nitrite POSITIVEmg/dL Urine Bilirubin 2+mg/dL Urine Urobilinogen 2+mg/dL Urine Leukocyte Esterase NEGATIVELeu/ul Urine Microscopic RBC 4/HPF Urine Microscopic WBC 1/HPF Urine Mucus FEW/HPF Urine Hemoglobin NEGATIVEmg/dL Urine Glucose NEGATIVEmg/dL Urine Total Protein NEGATIVEmg/dl Current Medications Medications (Trade) Dose Ordered Sig/Aaliyah Route PRN Reason Start Time Stop Time Status Last Admin Dose Admin Sodium Chloride (NS) 1,000 ml @ 1,000 mls/hr Q1H ONCE IV 07/09/17 17:30 07/09/17 18:29 DC Ciprofloxacin (Cipro) 500 mg ONCE ONCE PO 07/09/17 18:30 07/09/17 18:31 DC Procedures/MDM MEDICAL MAKING DECISION: The patient is a 72-year-old female, presenting with acute cystitis, acute dehydration, acute vomiting and diarrhea. She was treated with 1 L normal saline acute dehydration, Cipro p.o. for acute cystitis with good response The differential diagnoses considered include but are not limited to SBP, cystitis, pancreatitis, hepatitis, gastritis, peptic ulcer disease, gastric ulcer, appendicitis, diverticulitis, cholangitis, choledocholithiasis, partial small bowel obstruction. Departure Diagnosis: Primary Impression: UTI (urinary tract infection) Additional Impressions: Vomiting and diarrhea Dehydration Condition: Good Comments She was discharged with Cipro, Zofran, Imodium I discussed the findings with the patient. I advised the patient to follow-up with the primary physician in about 1-2 days, sooner if needed and return if any concern. Disclaimer: Inadvertent spelling and grammatical errors are likely due to EHR/ dictation software use and do not reflect on the overall quality of patient care. Also, please note that the electronic time recorded on this note does not necessarily reflect the actual time of the patient encounter. VANDANA CORDOVA MD Jul 09, 2017 15:14
[2017-07-09 15:54] LABS: ABNORMAL IP MESSAGE 1; HEMATOCRIT 38.2 % (37.0-47.0); HEMOGLOBIN 13.4 g/dl (12.0-16.0); MEAN CORPUSCULAR HEMOGLOBIN 36.9 pg (29.0-33.0); MEAN CORPUSCULAR HGB CONC 35.1 g/dl (32.0-37.0); MEAN CORPUSCULAR VOLUME 105.2 fl (82.0-101.0); MEAN PLATELET VOLUME 10.3 fl (7.4-10.4); PLATELET COUNT 51 10^3/UL (140-415); RED BLOOD COUNT 3.63 10^6/ul (4.20-5.40); RED CELL DISTRIBUTION WIDTH 20.5 % (11.5-14.5); WHITE BLOOD COUNT 5.3 10^3/ul (4.8-10.8)
[2017-07-09 15:57] LABS: POSITIVE DIFF @See below
[2017-07-09 16:18] LABS: ALBUMIN 3.4 g/dl (3.3-4.9); ALBUMIN/GLOBULIN RATIO 0.62; BILIRUBIN,DIRECT 0.1 mg/dl (0.00-0.20); BILIRUBIN,INDIRECT 5.2 mg/dl (0-1.1); BILIRUBIN,TOTAL 5.3 mg/dl (0.2-1.3); CALCIUM 9.6 mg/dl (8.4-10.2); CREATININE 0.96 mg/dl (0.44-1.00); POTASSIUM 4.7 mmol/L (3.5-5.1); TOTAL PROTEIN 8.8 g/dl (6.1-8.1)
[2017-07-09 16:36] LABS: ANISOCYTOSIS 2+ (0-0); GIANT THROMBO% (M) 1 % (0-0); MONOCYTES % (M) 9 % (0-11); POIKILOCYTOSIS 1+ (0-0)
[2017-07-09 17:00] VITALS: BP 128/76; PULSE 76; RESP 18; TEMP 98.1
[2017-07-09] MEDS ORDERED: SOD CHLORIDE 0.9% 1,000 ML IV ONE (17:30)
[2017-07-09 17:54] LABS: ADD UMIC YES; UR ASCORBIC ACID NEGATIVE (NEGATIVE); UR BILIRUBIN (Dip) 2+ mg/dL (NEGATIVE); UR BLOOD (Dip) NEGATIVE (NEGATIVE); UR CLARITY CLEAR (CLEAR); UR COLOR AMBER (YELLOW); UR GLUCOSE (Dip) NEGATIVE (NEGATIVE); UR KETONES (Dip) TRACE mg/dL (NEGATIVE); UR LEUKOCYTE ESTERASE (Dip) NEGATIVE Leu/ul (NEGATIVE); UR MUCUS FEW /HPF (NONE SEEN); UR NITRITE (Dip) POSITIVE (NEGATIVE); UR RBC 4 /HPF (0-5); UR SPECIFIC GRAVITY (Dip) 1.019 (1.003-1.030); UR TOTAL PROTEIN (Dip) NEGATIVE (NEGATIVE); UR UROBILINOGEN (Dip) 2+ mg/dL (NEGATIVE)
[2017-07-09] MEDS ORDERED: CIPR500T4 PO (18:15)
[2017-07-09] MEDS ORDERED: LOPE2CAP PO (18:16)
[2017-07-09] MEDS ORDERED: ONDA4TAB14 PO (18:16)
[2017-07-09] MEDS ORDERED: CIPROFLOXACIN 500 MG TAB PO ONE (18:30)
[2017-07-10] MEDS ORDERED: PROC10TA10 PO (11:28)
== END 2017-07-09 20:12 | disposition home or self-care (01) ==
LOC: E/R 12:59
DX: N39.0 Urinary tract infection, site not specified (principal); R11.10 Vomiting, unspecified; R19.7 Diarrhea, unspecified; E86.0 Dehydration; J44.9 Chronic obstructive pulmonary disease, unspecified; E11.9 Type 2 diabetes mellitus without complications; I50.9 Heart failure, unspecified; E66.9 Obesity, unspecified; Z68.28 Body mass index [BMI] 28.0-28.9, adult
CPT/HCPCS: 36415; 51702; 80053; 81001; 83690; 85025; 87086; 99284; J7030

== ENCOUNTER 2017-07-10 09:20 | Inpatient (IN) | payer OTHER, MEDICAID ==
[~2017-07-10] VITALS: Ht 160 cm; Wt 73.0 kg
[~2017-07-10 09:20] MED LIST changes: -ALBU8.5H3 INH; +CIPR500T4 PO; +LOPE2CAP PO; +ONDA4TAB14 PO
[2017-07-10] MEDS ORDERED: SOD CHLORIDE 0.9% 500 ML IV STA (10:06)
--- NOTE | 2017-07-10 10:15 | ERD ---
ER Documentation Chief Complaint Chief Complaint failure to thrive. poor appetite x 4 days HPI Patient is a 72-year-old female who presents to the ER for altered mental status for 4 days during which time she has been unable to speak, associated with several episodes of vomiting and not eating. There is no report of fever, no report of respiratory distress, no report of dark stool. There is no report of trauma. She was hospitalized 1 month ago for nearly a month for unknown liver condition that the family describes as "dark liver". History is limited due to poor history provided by family and patient unable to provide history. ROS All systems reviewed and are negative except as per history of present illness. Medications Home Meds Active Scripts Loperamide Hcl* (Imodium*) 2 Mg Capsule, 2 MG PO .AFTER EA LOOSE BM Y for DIARRHEA, #10 TAB Prov:VANDANA CORDOVA MD 07/09/17 Ondansetron (Ondansetron Odt) 4 Mg Tab.rapdis, 4 MG PO Q6H Y for NAUSEA AND/OR VOMITING, #10 TAB Prov:VANDANA CORDOVA MD 07/09/17 Ciprofloxacin Hcl* (Ciprofloxacin Hcl*) 500 Mg Tablet, 500 MG PO BID for 7 Days , TAB Prov:VANDANA CORDOVA MD 07/09/17 Spironolactone* (Aldactone*) 50 Mg Tablet, 50 MG PO DAILY, #30 TAB 3 Refills Prov:JUDY PEREZ S. 06/18/17 Pantoprazole* (Pantoprazole*) 40 Mg Tablet.dr, 40 MG PO BID@06,18, #60 2 Refills Prov:JUDY PEREZ S. 06/18/17 Furosemide* (Furosemide*) 40 Mg Tablet, 40 MG PO DAILY, #30 TAB 2 Refills Prov:JUDY PERZE S. 06/18/17 Sulfamethoxazole/Trimethoprim (Sulfamethoxazole-Tmp Ds Tablet) 1 Each Tablet, 1 TAB PO DAILY, #30 TAB 1 Refill Prov:JUDY PEREZ S. 06/18/17 Reported Medications Prochlorperazine* (Prochlorperazine*) 10 Mg Tablet, 10 MG PO Q6H Y for NAUSEA, TAB 07/10/17 Discontinued Scripts Albuterol Sulfate* (Proair HFA*) 8.5 Gm Hfa.aer.ad, 2 PUFF INH Q4, #1 INHALER 1 Refill Prov:JUDY PEREZ. 06/18/17 Allergies Allergies: Coded Allergies: No Known Allergy (Unverified , 07/10/17) PMhx/Soc Medical history: Diabetes mellitus, CHF, COPD, cirrhosis Past surgical history: Cholecystectomy Social history: Denies tobacco or alcohol Anesthesia Reaction: No Hx Neurological Disorder: No Hx Respiratory Disorders: Yes (COPD ) Hx Cardiac Disorders: No Hx Psychiatric Problems: No Hx Miscellaneous Medical Probl: Yes (obsesity, DM, CHF) Hx Alcohol Use: No Hx Substance Use: No Hx Tobacco Use: No Smoking Status: Never smoker FmHx Noncontributory Physical Exam Vitals Vital Signs Date Time Temp Pulse Resp B/P Pulse Ox O2 Delivery O2 Flow Rate FiO2 07/10/17 12:21 99.0 07/10/17 11:00 73 14 117/55 98 Room Air 07/10/17 09:31 96.3 74 12 115/54 99 Physical Exam Const: Lethargic, does not respond to sternal rub Head: Atraumatic Eyes: Conjunctival icterus, pupils equal round and reactive ENT: Normal External Ears, Nose and Mouth. Tacky mucous membranes Neck: Full range of motion..~ No meningismus. Resp: Clear to auscultation bilaterally Cardio: Regular rate and rhythm, no murmurs Abd: Soft, non tender, mildly distended. Rebound or guarding Skin: No petechiae or rashes Ext: No cyanosis, 1 plus pitting edema of bilateral shins Neur: Lethargic, does not follow commands, mild tremors, no asterixis, gross movement of 4 extremities noted Psych: Cannot assess due to condition Result Diagram: 07/10/17 1045 07/10/17 1045 Results 24 hrs Laboratory Tests Test 07/10/17 10:37 07/10/17 10:45 07/10/17 11:11 07/10/17 12:20 Blood Gas Specimen Source Blood venous Arterial Blood Date Drawn 07/10/2017 11:15:18 AM Arterial Blood Gas Puncture Site VENOUS LINE Scotty Test N/A Venous Blood pH 7.462 Venous Blood pCO2 (Temp Corrected) 33.1mmHG Venous Blood pO2 (Temp Corrected) 38.2mmHG Venous Blood HCO3 23.1mmol/L Venous Blood Oxygen Saturation 72.9mmHG Venous Blood Base Excess -0.1mmol/L Venous Blood Total Hemoglobin 12.2g/dl Venous Blood Oxyhemoglobin 72.5% Venous Blood Methemoglobin 0.1% Blood Gas A-a O2 Differential 71.9mmHg Carboxyhemoglobin 0.5% Blood Gas Temperature 37.0C Blood Gas Modality ROOM AIR FiO2 21.0% Blood Gas Notified Whom MDA Blood Gas Notified Time 07/10/2017 11:20:57 AM White Blood Count 4.010^3/ul Red Blood Count 3.5810^6/ul Hemoglobin 13.1g/dl Hematocrit 37.6% Mean Corpuscular Volume 105.0fl Mean Corpuscular Hemoglobin 36.6pg Mean Corpuscular Hemoglobin Concent 34.8g/dl Red Cell Distribution Width 20.9% Platelet Count 4110^3/UL Mean Platelet Volume 11.3fl Neutrophils % 69.1% Lymphocytes % 15.9% Monocytes % 13.4% Eosinophils % 0.5% Basophils % 0.3% Nucleated Red Blood Cells % 0.0/100WBC Neutrophils # 2.710^3/ul Lymphocytes # 0.610^3/ul Monocytes # 0.510^3/ul Eosinophils # 0.010^3/ul Basophils # 0.010^3/ul Nucleated Red Blood Cells # 0.010^3/ul Prothrombin Time 18.9Sec Prothrombin Time Ratio 1.5 INR International Normalized Ratio 1.55 Sodium Level 136mmol/L Potassium Level 5.2mmol/L Chloride Level 98mmol/L Carbon Dioxide Level 26mmol/L Anion Gap 17 Blood Urea Nitrogen 33mg/dl Creatinine 0.83mg/dl Glucose Level 91mg/dl Calcium Level 9.3mg/dl Total Bilirubin 4.7mg/dl Direct Bilirubin 0.00mg/dl Indirect Bilirubin 4.7mg/dl Aspartate Amino Transf (AST/SGOT) 65IU/L Alanine Aminotransferase (ALT/SGPT) 37IU/L Alkaline Phosphatase 139IU/L Ammonia 95umol/l Troponin I < 0.012ng/ml Total Protein 8.4g/dl Albumin 3.3g/dl Globulin 5.10g/dl Albumin/Globulin Ratio 0.64 Free Thyroxine Index 3.48ug/ml Thyroxine (T4) 7.5ug/dl Triiodothyronine (T3) Uptake 46.4% Bedside Glucose 80mg/dL Urine Color EDIL Urine Clarity SLIGHTLY CLOUDY Urine pH 5.0 Urine Specific [place] 1.025 Urine Ketones 1+mg/dL Urine Nitrite NEGATIVEmg/dL Urine Bilirubin 2+mg/dL Urine Urobilinogen 2+mg/dL Urine Leukocyte Esterase NEGATIVELeu/ul Urine Microscopic RBC 10/HPF Urine Microscopic WBC 6/HPF Urine Squamous Epithelial Cells FEW/HPF Urine Bacteria MANY/HPF Urine Mucus MODERATE/HPF Urine Hemoglobin NEGATIVEmg/dL Urine Glucose NEGATIVEmg/dL Urine Total Protein 1+mg/dl Current Medications Medications (Trade) Dose Ordered Sig/Aaliyah Route PRN Reason Start Time Stop Time Status Last Admin Dose Admin Sodium Chloride (NS) 500 ml @ 500 mls/hr Q1H STAT IV 07/10/17 10:06 07/10/17 11:05 DC 07/10/17 10:57 Lactulose 100 ml 100 ml ONCE ONCE AR 07/10/17 10:30 07/10/17 10:31 DC 07/10/17 11:59 Ceftriaxone Sodium (Rocephin) 50 ml @ 100 mls/hr ONCE ONCE IVPB 07/10/17 14:30 07/10/17 14:59 Ondansetron HCl (Zofran Inj) 4 mg BRIDGE ORDER PRN IV NAUSEA AND/OR VOMITING 07/10/17 14:30 07/11/17 14:29 Acetaminophen (Tylenol Tab) 650 mg ER BRIDGE PRN PO MILD PAIN/FEVER 07/10/17 14:30 07/11/17 14:29 Procedures/MDM EKG read by me: Time 1011, rate 71 Rhythm: Normal sinus [place]: Normal Intervals: Normal ST-T waves: no ischemic changes Ectopy: No Q-waves: No Impression: No evidence of ischemia or arrhythmia MDM: Patient is a 72-year-old female brought to the ER for 2 days of altered mental status. The family has poor comprehension of her underlying medical conditions, and states that she has not been eating or able to take her medications for 2 days. The patient is protecting her airway, but is very lethargic and not responding appropriately. Her head CT is negative for bleed. There is no report of dark stool, but the patient does have cirrhosis and thrombocytopenia. I will order a stool guaiac. The patient was given rectal lactulose due to not being able to tolerate oral intake due to altered mental status. If she does not improve with this treatment, she may require intubation and NG tube for lactulose. She does have evidence of UTI, and was seen yesterday in the ER and had this diagnosed. The time course of illness does not exactly match with the report from family based upon documentation from yesterday's visit. The patient will be admitted to a monitored bed for further workup and treatment. She was not stable for transfer due to severity of altered mental status. Departure Diagnosis: Primary Impression: Hepatic encephalopathy Additional Impressions: Obtunded Urinary tract infection Urinary tract infection type: site unspecified Hematuria presence: without hematuria Qualified Code: N39.0 - Urinary tract infection without hematuria, site unspecified ANDRE WEST MD Jul 10, 2017 10:15
[2017-07-10] MEDS ORDERED: LACTULOSE ENEMA 1,000 ML BTL PR ONE ×2 (10:30→15:00)
--- NOTE | 2017-07-10 10:36 | RADRPT ---
PROCEDURE: CT Brain without contrast. CLINICAL INDICATION: Altered mental status TECHNIQUE: A CT of the brain was performed on a multidetector CT scanner utilizing axial imaging f rom the skull base through the vertex without IV contrast. Multiplanar reformatted images were made . Images were reviewed on a PACS workstation. The CTDIvol is 45 mGy and the DLP is 720 mGycm. DICOM images are available. One or more of the following dose reduction techniques were utilized: 1.) Automated exposure control 2.) Adjustment of the mA +/- kV according to patient's size 3.) Use of iterative reconstruction technique. COMPARISON: None FINDINGS: There is no intracranial hemorrhage, mass effect, or midline shift. No extra-axial fluid collection is seen. The ventricles and sulci are normal in size and configuration. The density of the brain is normal, and the calix white matter differentiation appears well-preserved. The visualized paranasal sinuses and osseous structures are grossly unremarkable. IMPRESSION: 1. No evidence of acute intracranial pathology. 2. The brain is normal in appearance. .Joseph Dai MD, Date Time Electronically viewed and signed by .Joseph Dai MD, on 07/10/2017 10:36 .A/
--- NOTE | 2017-07-10 10:44 | RADRPT ---
PROCEDURE: Chest x-ray CLINICAL INDICATION: Altered mental status TECHNIQUE: Chest single view COMPARISON: 06/08/2017 FINDINGS: The heart is normal in size. The pulmonary vessels are normal in caliber. The lungs are clear. The re are mild chronic interstitial changes. The costophrenic angles are sharp. The visualized bony th orax is unremarkable. IMPRESSION: No acute cardiopulmonary disease. There is stable mild atherosclerotic aortic calcification RPTAT: HH .Tristan Jean MD, MD Date Time Electronically viewed and signed by .Tristan Jean MD, on 07/10/2017 10:43 .W/
[2017-07-10 11:08] LABS: ABNORMAL IP MESSAGE 1; BASOPHILS % 0.3 % (0.0-2.0); EOSINOPHILS % 0.5 % (0.0-7.0); HEMATOCRIT 37.6 % (37.0-47.0); HEMOGLOBIN 13.1 g/dl (12.0-16.0); LYMPHOCYTES # 0.6 10^3/ul (0.8-2.9); LYMPHOCYTES % 15.9 % (15.0-51.0); MEAN CORPUSCULAR HEMOGLOBIN 36.6 pg (29.0-33.0); MEAN CORPUSCULAR HGB CONC 34.8 g/dl (32.0-37.0); MEAN PLATELET VOLUME 11.3 fl (7.4-10.4); MONOCYTE # 0.5 10^3/ul (0.3-0.9); MONOCYTES % 13.4 % (0.0-11.0); NEUTROPHIL # 2.7 10^3/ul (1.6-7.5); NEUTROPHILS % 69.1 % (39.0-77.0); PLATELET COUNT 41 10^3/UL (140-415); RED BLOOD COUNT 3.58 10^6/ul (4.20-5.40); RED CELL DISTRIBUTION WIDTH 20.9 % (11.5-14.5)
[2017-07-10 11:10] LABS: POSITIVE DIFF @See below
[2017-07-10 11:21] LABS: MODE ROOM AIR; MetHgb Venous 0.1 %; Sample Type Blood venous; Venous COHb 0.5 %; Venous Fraction OxyHgb 72.5 %; Venous Total Hemglobin 12.2 g/dl
[2017-07-10 11:26] LABS: ALANINE AMINOTRANSFERASE 37 IU/L (13-69); ALBUMIN 3.3 g/dl (3.3-4.9); ALBUMIN/GLOBULIN RATIO 0.64; ALKALINE PHOSPHATASE 139 IU/L (42-121); ANION GAP 17 (8-16); ASPARTATE AMINO TRANSFERASE 65 IU/L (15-46); BILIRUBIN,INDIRECT 4.7 mg/dl (0-1.1); BILIRUBIN,TOTAL 4.7 mg/dl (0.2-1.3); BLOOD UREA NITROGEN 33 mg/dl (7-20); CALCIUM 9.3 mg/dl (8.4-10.2); CARBON DIOXIDE 26 mmol/L (21-31); CHLORIDE 98 mmol/L (97-110); CREATININE 0.83 mg/dl (0.44-1.00); GLUCOSE 91 mg/dl (70-220); POTASSIUM 5.2 mmol/L (3.5-5.1); SODIUM 136 mmol/L (135-144); TOTAL PROTEIN 8.4 g/dl (6.1-8.1)
[2017-07-10 11:27] LABS: INR 1.55; PROTIME 18.9 Sec (11.9-14.9); PT RATIO 1.5
[2017-07-10] MEDS ORDERED: PROC10TA10 PO (11:28)
[2017-07-10 11:37] LABS: TROPONIN-I < 0.012 ng/ml (0.00-0.12)
[2017-07-10 12:05] LABS: T3 UPTAKE 46.4 % (23.5-40.5)
[2017-07-10 12:21] VITALS: TEMP 99
[2017-07-10 12:57] LABS: ADD UMIC YES; UR ASCORBIC ACID NEGATIVE (NEGATIVE); UR BACTERIA MANY /HPF (NONE SEEN); UR BILIRUBIN (Dip) 2+ mg/dL (NEGATIVE); UR BLOOD (Dip) NEGATIVE (NEGATIVE); UR CLARITY SLIGHTLY CLOUDY (CLEAR); UR COLOR AMBER (YELLOW); UR GLUCOSE (Dip) NEGATIVE (NEGATIVE); UR KETONES (Dip) 1+ mg/dL (NEGATIVE); UR LEUKOCYTE ESTERASE (Dip) NEGATIVE Leu/ul (NEGATIVE); UR MUCUS MODERATE /HPF (NONE SEEN); UR NITRITE (Dip) NEGATIVE (NEGATIVE); UR RBC 10 /HPF (0-5); UR SPECIFIC GRAVITY (Dip) 1.025 (1.003-1.030); UR SQUAMOUS EPITHELIAL CELL FEW /HPF (FEW); UR TOTAL PROTEIN (Dip) 1+ mg/dl (NEGATIVE); UR UROBILINOGEN (Dip) 2+ mg/dL (NEGATIVE)
[2017-07-10] MEDS ORDERED: CEFTRIAXONE 1 GM/50 ML (PMX) 50 ML IVPB ONE (14:30)
[2017-07-10] MEDS ORDERED: ACETAMINOPHEN 325 MG TAB PO PRN (14:30)
[2017-07-10] MEDS ORDERED: ONDANSETRON 4 MG INJ IV PRN (14:30)
--- NOTE | 2017-07-10 16:06 | HP ---
Date/Time of Note Date/Time of Note DATE: 07/10/17 TIME: 15:59 Assessment/Plan VTE Prophylaxis VTE Prophylaxis Intervention: heparin Lines/Catheters Urinary Cath still in place: Yes Reason Cath still needed: urinary retention Assessment/Plan Chief Complaint/Hosp Course 72 yo female with decompensated cirrhosis (ascites, varices) who presents with progressive encephelopathy/obtundation over past few days Given the clinical picture hepatic encephelopathy is most likely on differential. No evidence of cerebrovascular event on CT head. No drastic metabolic abnormalities to explain this. Hepatic encephelopathy - Place NG tube for lactulose from above and lactulose enema from below Cirrhosis: - paracentesis to assess for SBP - Hold diuretics for now - continue bactrim ppx for SBP if tap is negative Problems: HPI/ROS Admit Date/Time Admit Date/Time Hx of Present Illness 72 yo female with h/o cirrhosis complicated by ascites, varices, CHF who presents with obtundation Patient generally with normal mental status per family. Converses normally, independent with ADLs. Was admitted her a few weeks ago and diagnosed with SBP , bacteremia, received LVP. Discharged on diuretics and bactrim ppx. Edema markedly better per family. Generally did well until last few days when she has become progressively lethargic, somnulent. Brought to ED yesterday by who noticed dark urine. Given cipro and sent home. Today returned because family foudn her progressively obtrunded. THey state she has not had any medicaitons, has not had any food or drink over past few days. In ED, give lactulose enema and ceftriaxone. PMH/Family/Social Past Medical History Cirrhosis Past Surgical History Past Surgical Hx: no surgical history Social History Smoking Status: Never smoker Exam/Review of Systems Vital Signs Vitals Vital Signs Date Time Temp Pulse Resp B/P Pulse Ox O2 Delivery O2 Flow Rate FiO2 07/10/17 15:00 73 12 114/62 98 Room Air 07/10/17 12:21 99.0 Exam Exam Lethargic, obtunded Minimal response to noxious stimuli and no resonse to commands Mildly jaundiced Appeasr comfortable Breathing normally, protecting airway adequately Pupils equal and reative to light Heart sounds normal Lung sounds normal Labs Result Diagram: 07/10/17 1045 07/10/17 1045 Medications Medications Current Medications Lactulose (Enulose) 20 gm Q4 PO ; Start 07/10/17 at 17:00; Status UNV ANDRE GOODSON MD Jul 10, 2017 16:06
[2017-07-10] MEDS ORDERED: NACL 0.9% 3 ML SYG IV SCH (16:30)
[2017-07-10] MEDS: LACTULOSE 30ML CUP PO SCH (16:37)
[2017-07-10 18:58] VITALS: PULSE 85
[2017-07-10 19:42] VITALS: Ht 160 cm; Wt 73.0 kg
[2017-07-10 19:49] VITALS: BP 125/58; PULSE 88; RESP 18
[2017-07-10 20:02] VITALS: PULSE 90
[2017-07-10] MEDS ORDERED: SOD CHLORIDE 0.9% 1,000 ML IV SCH (20:30)
--- NOTE | 2017-07-10 22:15 | RADRPT ---
PROCEDURE: XR Chest. CLINICAL INDICATION: Nasal tube placement confirmation TECHNIQUE: Single frontal view of the chest was obtained COMPARISON: Chest radiograph dated February 23, 2009. FINDINGS: Feeding tube coursing beneath the diaphragm; the tip is outside the field of view. The heart and mediastinum are within normal limits. There is mild pulmonary vascular congestion. No focal consolidations, pleural effusions, pneumothora x. Degenerative change of the spine and shoulder joints are present. IMPRESSION: 1. Mild pulmonary vascular congestion. No focal consolidations. 2. Feeding tube coursing beneath the diaphragm; the tip is outside the field of view. RPTAT:AAJJ Physician Abdias Date Time Electronically viewed and signed by Physician Abdias on 07/10/2017 22:14 QL/
--- NOTE | 2017-07-10 23:22 | RADRPT ---
PROCEDURE: XR Chest. CLINICAL INDICATION: Feeding tube. TECHNIQUE: Single frontal view of the chest was obtained COMPARISON: Chest radiograph dated February 23, 2009. FINDINGS: Feeding tube tip overlying the distal stomach versus proximal duodenum. The heart is normal in size. The lungs are clear with no focal consolidations, pleural effusions, or pneumothorax. Degenerative changes of the spine and shoulder joints are present. Surgical clips overlie the right upper abdominal quadrant. IMPRESSION: 1. Feeding tube tip overlying the distal stomach versus proximal duodenum. 2. No acute cardiopulmonary disease. RPTAT:AAJJ Physician Abdias Date Time Electronically viewed and signed by Physician Abdias on 07/10/2017 23:22 QL/
[2017-07-11] VITALS (13 sets, daily range): BP systolic 123–133; BP diastolic 56–65; PULSE 80–120; RESP 18–20
[2017-07-11] MEDS: LACTULOSE 30ML CUP PO SCH ×7 (00:05→21:00)
[2017-07-11 07:52] LABS: ALBUMIN 2.9 g/dl (3.3-4.9); ALBUMIN/GLOBULIN RATIO 0.58; BILIRUBIN,DIRECT 0.2 mg/dl (0.00-0.20); BILIRUBIN,INDIRECT 4.6 mg/dl (0-1.1); BILIRUBIN,TOTAL 4.8 mg/dl (0.2-1.3); CALCIUM 9.2 mg/dl (8.4-10.2); CREATININE 0.75 mg/dl (0.44-1.00); POTASSIUM 4.4 mmol/L (3.5-5.1); TOTAL PROTEIN 7.9 g/dl (6.1-8.1)
[2017-07-11 07:58] LABS: HEMOGLOBIN 11.8 g/dl (12.0-16.0); WHITE BLOOD COUNT 5.8 10^3/ul (4.8-10.8)
[2017-07-11 07:59] LABS: HEMATOCRIT 33.4 % (37.0-47.0); MEAN CORPUSCULAR HEMOGLOBIN 36.9 pg (29.0-33.0); MEAN CORPUSCULAR HGB CONC 35.3 g/dl (32.0-37.0); MEAN CORPUSCULAR VOLUME 104.4 fl (82.0-101.0); MEAN PLATELET VOLUME 11.5 fl (7.4-10.4)
[2017-07-11 08:00] LABS: PLATELET COUNT 51 10^3/UL (140-440)
[2017-07-11 08:02] LABS: LYMPHOCYTES # 0.6 10^3/ul (0.8-2.9); MONOCYTE # 0.8 10^3/ul (0.3-0.9); MONOCYTES % (M) 14 % (0-11)
[2017-07-11 08:03] LABS: INR 1.76; PARTIAL THROMBOPLASTIN TIME 34.6 Sec (25.0-35.0); PROTIME 20.9 Sec (11.9-14.9); PT RATIO 1.6
[2017-07-11 08:28] LABS: T3 UPTAKE 53.8 % (23.5-40.5)
[2017-07-11] MEDS: ENOXAPARIN 30 MG/0.3 ML SYG SC SCH (09:00)
--- NOTE | 2017-07-11 10:47 | PN ---
Date/Time of Note Date/Time of Note DATE: 07/11/17 TIME: 10:45 Assessment/Plan VTE Prophylaxis VTE Prophylaxis Intervention: heparin Lines/Catheters IV Catheter Type (from Nrs): Peripheral IV Urinary Cath still in place: No (inserted in ER) Reason Cath still needed: other (indicate) Assessment/Plan Chief Complaint/Hosp Course 72 yo female with decompensated cirrhosis (ascites, varices) who presents with progressive encephelopathy/obtundation over past few days Given the clinical picture hepatic encephelopathy is most likely on differential. No evidence of cerebrovascular event on CT head. No drastic metabolic abnormalities to explain this. Hepatic encephelopathy - Place NG tube for lactulose from above and lactulose enema from below - Rifaxamin - Hold any sedatives Cirrhosis: - paracentesis to assess for SBP - Hold diuretics - continue bactrim ppx for SBP if tap is negative Discharge plan pending resolution of acute medical condition Problems: Subjective 24 Hr Interval Summary Free Text/Dictation Minimal change to clinical status since yesterday, still encephelopathatic Got 3 doses lactulose: 1 BM apparently, vomioted this AM. Pulled NG tube Exam/Review of Systems Vital Signs Vitals Vital Signs Date Time Temp Pulse Resp B/P Pulse Ox O2 Delivery O2 Flow Rate FiO2 07/11/17 08:36 97.7 81 19 127/60 96 07/11/17 00:00 Room Air Intake and Output 07/10/17 07/10/17 07/11/17 15:00 23:00 07:00 Intake Total 380 ml Output Total 600 ml Balance -220 ml Exam Lethargic Odd ocular movements No response to verbal stimuli, resonds to noxiuos sitmulit Pupils reaction Moves spontaneously x 4 RRR Abdomen mildly distended w ascites, nontender. Small umbilical hernia No edema Results Result Diagram: 07/11/17 0638 07/11/17 0638 Results 24 hrs Laboratory Tests Test 07/10/17 11:11 07/10/17 12:20 07/11/17 06:38 Bedside Glucose 80 Urine Color EDIL Urine Clarity SLIGHTLY CLOUDY A Urine pH 5.0 Urine Specific [place] 1.025 Urine Ketones 1+ H Urine Nitrite NEGATIVE Urine Bilirubin 2+ H Urine Urobilinogen 2+ H Urine Leukocyte Esterase NEGATIVE Urine Microscopic RBC 10 H Urine Microscopic WBC 6 H Urine Squamous Epithelial Cells FEW Urine Bacteria MANY A Urine Mucus MODERATE Urine Hemoglobin NEGATIVE Urine Glucose NEGATIVE Urine Total Protein 1+ H White Blood Count 5.8 # Red Blood Count 3.20 L Hemoglobin 11.8 L Hematocrit 33.4 L Mean Corpuscular Volume 104.4 H Mean Corpuscular Hemoglobin 36.9 H Mean Corpuscular Hemoglobin Concent 35.3 Red Cell Distribution Width 21.0 H Platelet Count 51 L Mean Platelet Volume 11.5 H Segmented Neutrophils % (Manual) 76 Lymphocytes % (Manual) 10 L Monocytes % (Manual) 14 H Absolute Lymphocytes (Manual) 0.5 L Lymphocytes # 0.6 L Monocytes # 0.8 Absolute Monocytes (Manual) 0.8 Prothrombin Time 20.9 H Prothrombin Time Ratio 1.6 INR International Normalized Ratio 1.76 Activated Partial Thromboplast Time 34.6 Sodium Level 136 Potassium Level 4.4 Chloride Level 101 Carbon Dioxide Level 23 Anion Gap 16 Blood Urea Nitrogen 29 H Creatinine 0.75 Glucose Level 88 Calcium Level 9.2 Total Bilirubin 4.8 H Direct Bilirubin 0.20 # Indirect Bilirubin 4.6 H Aspartate Amino Transf (AST/SGOT) 48 H Alanine Aminotransferase (ALT/SGPT) 39 Alkaline Phosphatase 120 Total Protein 7.9 Albumin 2.9 L Globulin 5.00 H Albumin/Globulin Ratio 0.58 Free Thyroxine Index 3.34 Thyroxine (T4) 6.2 Triiodothyronine (T3) Uptake 53.8 H Medications Medications Current Medications Lactulose (Enulose) 20 gm Q4 PO Last administered on 07/11/17 05:10; Admin Dose 20 GM; Start 07/10/17 at 17:00 Enoxaparin Sodium (Lovenox) 30 mg DAILY SC ; Start 07/11/17 at 09:00 Rifaximin (Xifaxan) 550 mg BID PO ; Start 07/11/17 at 11:00; Status UNV Lactulose (Lactulose Enema) 100 ml Q8 RI ; Start 07/11/17 at 14:00; Status UNV ANDRE GOODSON MD Jul 11, 2017 10:47
[2017-07-11] MEDS: RIFAXIMIN 550 MG TAB PO SCH ×2 (14:26→21:00)
[2017-07-11] MEDS: LACTULOSE ENEMA 1,000 ML BTL PR SCH ×2 (14:28→23:02)
--- NOTE | 2017-07-11 16:54 | RADRPT ---
PROCEDURE: XR Chest. CLINICAL INDICATION: Tube placement. TECHNIQUE: Single frontal view of the chest was obtained. COMPARISON: 07/10/2017. FINDINGS: Enteric tube appear stable in position with distal end projecting over the distal stomach versus pro ximal duodenum. The cardiomediastinal silhouette is normal in size. There are aortic calcifications. No focal consolidation is seen. No pleural effusion is seen. No definite pneumothorax. No acute osseous abnormality. Surgical clips in the right upper abdomen. IMPRESSION: 1. Stable position of enteric tube with distal end projecting over the distal stomach versus proxima l duodenum. 2. No radiographic evidence of an acute cardiopulmonary process. RPTAT: AAEE Wilson Mccann Physician Date Time Electronically viewed and signed by Wilson Mccann Physician on 07/11/2017 12:03 PH/
[2017-07-12] VITALS (14 sets, daily range): BP systolic 113–141; BP diastolic 48–65; PULSE 73–110; RESP 16–20
--- NOTE | 2017-07-12 00:14 | RADRPT ---
PROCEDURE: XR Chest. CLINICAL INDICATION: NG tube placement. TECHNIQUE: Single AP portable chest. COMPARISON: 02/23/2009 Chest x-ray FINDINGS: The cardiomediastinal silhouette is within normal limits of size. NG tube tip overlying the duodenum . Status post cholecystectomy. The lungs are clear without pleural effusion or focal consolidation . No pneumothorax. The osseous structures and soft tissues are unremarkable. IMPRESSION: 1. No evidence for active cardiopulmonary disease. NG tube tip in satisfactory position. RPTAT:AAJJ Physician Tere Date Time Electronically viewed and signed by Physician Tere on 07/12/2017 00:14 FLORENCIA/
[2017-07-12] MEDS: LACTULOSE 30ML CUP PO SCH ×6 (01:00→23:06)
[2017-07-12] MEDS: LACTULOSE ENEMA 1,000 ML BTL PR SCH ×3 (05:00→23:06)
[2017-07-12] MEDS: ENOXAPARIN 30 MG/0.3 ML SYG SC SCH (08:09)
[2017-07-12] MEDS: RIFAXIMIN 550 MG TAB PO SCH ×2 (09:19→23:06)
[2017-07-12 10:36] LABS: ABNORMAL IP MESSAGE 1; EOSINOPHILS % 0.2 % (0.0-7.0); HEMOGLOBIN 12.2 g/dl (12.0-16.0); LYMPHOCYTES # 0.7 10^3/ul (0.8-2.9); LYMPHOCYTES % 17.4 % (15.0-51.0); MEAN CORPUSCULAR HEMOGLOBIN 37.5 pg (29.0-33.0); MEAN CORPUSCULAR HGB CONC 34.9 g/dl (32.0-37.0); MEAN CORPUSCULAR VOLUME 107.7 fl (82.0-101.0); MEAN PLATELET VOLUME 10.3 fl (7.4-10.4); MONOCYTE # 0.7 10^3/ul (0.3-0.9); MONOCYTES % 15.5 % (0.0-11.0); NEUTROPHIL # 2.8 10^3/ul (1.6-7.5); RED BLOOD COUNT 3.25 10^6/ul (4.20-5.40); RED CELL DISTRIBUTION WIDTH 21.6 % (11.5-14.5); WHITE BLOOD COUNT 4.3 10^3/ul (4.8-10.8)
[2017-07-12 10:38] LABS: PLATELET COUNT 41 10^3/UL (140-415); POSITIVE DIFF @See below
[2017-07-12 11:08] LABS: ALBUMIN 2.8 g/dl (3.3-4.9); ALBUMIN/GLOBULIN RATIO 0.62; BILIRUBIN,DIRECT 0.1 mg/dl (0.00-0.20); BILIRUBIN,INDIRECT 3.9 mg/dl (0-1.1); CREATININE 0.71 mg/dl (0.44-1.00); TOTAL PROTEIN 7.3 g/dl (6.1-8.1)
--- NOTE | 2017-07-12 15:00 | PN ---
Date/Time of Note Date/Time of Note DATE: 07/12/17 TIME: 14:58 Assessment/Plan VTE Prophylaxis VTE Prophylaxis Intervention: heparin Lines/Catheters IV [facility]ter [facility]from [facility] Saline Lock Urinary Cath still in place: No Assessment/Plan Chief Complaint/Hosp Course 72 yo female with decompensated cirrhosis (ascites, varices) who presents with progressive encephelopathy/obtundation over past few days Given the clinical picture hepatic encephelopathy is most likely on differential. No evidence of cerebrovascular event on CT head. No drastic metabolic abnormalities to explain this. Hepatic encephelopathy - Place NG tube for lactulose from above and lactulose enema from below - Rifaxamin - Miralax - Hold any sedatives Cirrhosis: - paracentesis to assess for SBP - Hold diuretics - continue bactrim ppx for SBP if tap is negative - Empiric ceftriaxone for now Discharge plan pending resolution of acute medical condition Problems: Subjective 24 Hr Interval Summary Free Text/Dictation Remains encephelopathic, though slightly more responsive today Exam/Review of Systems Vital Signs Vitals Vital Signs Date Time Temp Pulse Resp B/P Pulse Ox O2 Delivery O2 Flow Rate FiO2 07/12/17 12:08 73 07/12/17 12:00 98.0 18 113/48 96 07/12/17 10:00 Room Air 07/12/17 00:09 2.0 Intake and Output 07/11/17 07/11/17 07/12/17 15:00 23:00 07:00 Intake Total 120 ml 0 ml Output Total 175 ml 500 ml Balance -55 ml -500 ml Exam lethargic, Encephelopathic Slightly more alert today, resonds to voice Moves all extremities spontaneously RRR Clear lungs Abd soft nt ntd Results Result Diagram: 07/12/17 0957 07/12/17 0957 Results 24 hrs Laboratory Tests Test 07/12/17 09:57 White Blood Count 4.3 #L Red Blood Count 3.25 L Hemoglobin 12.2 Hematocrit 35.0 L Mean Corpuscular Volume 107.7 H Mean Corpuscular Hemoglobin 37.5 H Mean Corpuscular Hemoglobin Concent 34.9 Red Cell Distribution Width 21.6 H Platelet Count 41 L Mean Platelet Volume 10.3 Neutrophils % 66.0 Lymphocytes % 17.4 Monocytes % 15.5 H Eosinophils % 0.2 Basophils % 0.0 Nucleated Red Blood Cells % 0.0 Neutrophils # 2.8 Lymphocytes # 0.7 L Monocytes # 0.7 Eosinophils # 0.0 Basophils # 0.0 Nucleated Red Blood Cells # 0.0 Sodium Level 139 Potassium Level 4.0 Chloride Level 103 Carbon Dioxide Level 26 Anion Gap 14 Blood Urea Nitrogen 32 H Creatinine 0.71 Glucose Level 111 Calcium Level 9.0 Total Bilirubin 4.0 H Direct Bilirubin 0.10 Indirect Bilirubin 3.9 H Aspartate Amino Transf (AST/SGOT) 47 H Alanine Aminotransferase (ALT/SGPT) 39 Alkaline Phosphatase 98 Total Protein 7.3 Albumin 2.8 L Globulin 4.50 H Albumin/Globulin Ratio 0.62 Medications Medications Current Medications Lactulose (Enulose) 20 gm Q4 PO Last administered on 07/12/17 12:39; Admin Dose 20 GM; Start 07/10/17 at 17:00 Enoxaparin Sodium (Lovenox) 30 mg DAILY SC ; Start 07/11/17 at 09:00 Rifaximin (Xifaxan) 550 mg BID PO Last administered on 07/12/17 09:19; Admin Dose 550 MG; Start 07/11/17 at 11:00 Lactulose (Lactulose Enema) 100 ml Q8 FL Last administered on 07/12/17 14:31 ; Admin Dose 100 ML; Start 07/11/17 at 14:00 Polyethylene Glycol (Miralax) 17 gm BID PO ; Start 07/12/17 at 21:00 ANDRE GOODSON MD Jul 12, 2017 15:00
[2017-07-12] MEDS ORDERED: PEG/ELECTROLYTES 4L BTL PO ONE (17:00)
[2017-07-12] MEDS: CEFTRIAXONE 1 GM/50 ML (PMX) 50 ML IVPB SCH (17:01)
[2017-07-12] MEDS: POLYETHYLENE GLYCOL 17 GM PACKET PO SCH (23:06)
[2017-07-13] VITALS (14 sets, daily range): BP systolic 116–145; BP diastolic 58–71; PULSE 88–103; RESP 17–19
[2017-07-13] MEDS: LACTULOSE 30ML CUP PO SCH ×6 (01:57→21:32)
[2017-07-13] MEDS: LACTULOSE ENEMA 1,000 ML BTL PR SCH ×2 (06:11→14:11)
[2017-07-13 06:38] LABS: ABNORMAL IP MESSAGE 1; BASOPHILS % 0.2 % (0.0-2.0); EOSINOPHILS % 0.4 % (0.0-7.0); HEMATOCRIT 37.3 % (37.0-47.0); HEMOGLOBIN 12.8 g/dl (12.0-16.0); LYMPHOCYTES # 0.7 10^3/ul (0.8-2.9); LYMPHOCYTES % 11.8 % (15.0-51.0); MEAN CORPUSCULAR HGB CONC 34.3 g/dl (32.0-37.0); MEAN CORPUSCULAR VOLUME 107.8 fl (82.0-101.0); MEAN PLATELET VOLUME 10.9 fl (7.4-10.4); MONOCYTE # 0.7 10^3/ul (0.3-0.9); MONOCYTES % 12.4 % (0.0-11.0); NEUTROPHIL # 4.2 10^3/ul (1.6-7.5); PLATELET COUNT 51 10^3/UL (140-415); RED BLOOD COUNT 3.46 10^6/ul (4.20-5.40); RED CELL DISTRIBUTION WIDTH 21.6 % (11.5-14.5); WHITE BLOOD COUNT 5.7 10^3/ul (4.8-10.8)
[2017-07-13 06:49] LABS: ALBUMIN/GLOBULIN RATIO 0.66; BILIRUBIN,DIRECT 0.1 mg/dl (0.00-0.20); BILIRUBIN,INDIRECT 3.8 mg/dl (0-1.1); BILIRUBIN,TOTAL 3.9 mg/dl (0.2-1.3); CALCIUM 9.7 mg/dl (8.4-10.2); CREATININE 0.8 mg/dl (0.44-1.00); POTASSIUM 3.7 mmol/L (3.5-5.1); TOTAL PROTEIN 7.5 g/dl (6.1-8.1)
[2017-07-13 07:02] LABS: POSITIVE DIFF @See below
[2017-07-13] MEDS: ENOXAPARIN 30 MG/0.3 ML SYG SC SCH ×2 (08:02→08:10)
[2017-07-13] MEDS: POLYETHYLENE GLYCOL 17 GM PACKET PO SCH ×2 (09:01→21:32)
[2017-07-13] MEDS: RIFAXIMIN 550 MG TAB PO SCH ×2 (09:01→21:32)
[2017-07-13] MEDS ORDERED: LACTULOSE 30ML CUP PO ONE (11:30)
--- NOTE | 2017-07-13 14:23 | PN ---
Date/Time of Note Date/Time of Note DATE: 07/13/17 TIME: 14:21 Assessment/Plan VTE Prophylaxis VTE Prophylaxis Intervention: heparin Lines/Catheters IV Catheter Type (from [facility]): Saline Lock Urinary Cath still in place: No Assessment/Plan Chief Complaint/Hosp Course 72 yo female with decompensated cirrhosis (ascites, varices) who presents with progressive encephelopathy/obtundation over past few days Given the clinical picture hepatic encephelopathy is most likely on differential. No evidence of cerebrovascular event on CT head. No drastic metabolic abnormalities to explain this. Hepatic encephelopathy - Continued lactulose PO from above and lactulose enema from below. NG tube removed, if not tolerating lactulose PO needs to go back in - Rifaxamin - Miralax - Hold any sedatives Cirrhosis: - paracentesis to assess for SBP pending - Hold diuretics - continue bactrim ppx for SBP if tap is negative - Empiric ceftriaxone for now Discharge plan pending resolution of acute medical condition Problems: Subjective 24 Hr Interval Summary Free Text/Dictation Much more alert today, returning to baseline wants NG tube out Exam/Review of Systems Vital Signs Vitals Vital Signs Date Time Temp Pulse Resp B/P Pulse Ox O2 Delivery O2 Flow Rate FiO2 07/13/17 12:44 98.3 89 19 145/71 90 07/13/17 06:29 Room Air 07/13/17 00:43 2.0 Intake and Output 07/12/17 07/12/17 07/13/17 15:00 23:00 07:00 Intake Total 50 ml 0 ml Balance 50 ml 0 ml Exam Alert, orteint to hospital No distress No asterixis RRR Clear lungs Abd soft nt nd Ext with resolved edema Results Result Diagram: 07/13/17 0548 07/13/17 0548 Results 24 hrs Laboratory Tests Test 07/13/17 05:48 White Blood Count 5.7 # Red Blood Count 3.46 L Hemoglobin 12.8 Hematocrit 37.3 Mean Corpuscular Volume 107.8 H Mean Corpuscular Hemoglobin 37.0 H Mean Corpuscular Hemoglobin Concent 34.3 Red Cell Distribution Width 21.6 H Platelet Count 51 #L Mean Platelet Volume 10.9 H Neutrophils % 74.0 Lymphocytes % 11.8 L Monocytes % 12.4 H Eosinophils % 0.4 Basophils % 0.2 Nucleated Red Blood Cells % 0.0 Neutrophils # 4.2 Lymphocytes # 0.7 L Monocytes # 0.7 Eosinophils # 0.0 Basophils # 0.0 Nucleated Red Blood Cells # 0.0 Sodium Level 143 Potassium Level 3.7 Chloride Level 102 Carbon Dioxide Level 29 Anion Gap 16 Blood Urea Nitrogen 41 H Creatinine 0.80 Glucose Level 150 Calcium Level 9.7 Total Bilirubin 3.9 H Direct Bilirubin 0.10 Indirect Bilirubin 3.8 H Aspartate Amino Transf (AST/SGOT) 51 H Alanine Aminotransferase (ALT/SGPT) 37 Alkaline Phosphatase 120 Total Protein 7.5 Albumin 3.0 L Globulin 4.50 H Albumin/Globulin Ratio 0.66 Medications Medications Current Medications Lactulose (Enulose) 20 gm Q4 PO Last administered on 07/13/17 09:01; Admin Dose 20 GM; Start 07/10/17 at 17:00 Enoxaparin Sodium (Lovenox) 30 mg DAILY SC ; Start 07/11/17 at 09:00 Rifaximin (Xifaxan) 550 mg BID PO Last administered on 07/13/17 09:01; Admin Dose 550 MG; Start 07/11/17 at 11:00 Lactulose (Lactulose Enema) 100 ml Q8 VA Last administered on 07/13/17 14:11 ; Admin Dose 100 ML; Start 07/11/17 at 14:00 Polyethylene Glycol 17 gm 17 gm BID PO Last administered on 07/13/17 09:01; Admin Dose 17 GM; Start 07/12/17 at 21:00 Ceftriaxone Sodium (Rocephin) 50 ml @ 100 mls/hr Q24H IVPB Last administered on 07/12/17 17:01; Admin Dose 100 MLS/HR; Start 07/12/17 at 16:00 ANDRE GOODSON MD Jul 13, 2017 14:23
[2017-07-13] MEDS: CEFTRIAXONE 1 GM/50 ML (PMX) 50 ML IVPB SCH (15:58)
--- NOTE | 2017-07-13 16:47 | RADRPT ---
PROCEDURE: US Abdomen Limited. CLINICAL INDICATION: Diagnostic paracentesis TECHNIQUE: Multiple real-time longitudinal and transverse images were acquired of the patient's ab domen and retroperitoneum utilizing a curved array transducer. COMPARISON: 06/08/2017 FINDINGS: Note that there is no significant fluid visualized within the abdomen within the bilateral lower and upper quadrants sufficient for paracentesis. RPTAT: QQ IMPRESSION: No significant visualized fluid within the abdomen for paracentesis. .Rachel Lawrence MD, MD Date Time Electronically viewed and signed by .Rachel Lawrence MD, on 07/13/2017 16:46 .T/
[2017-07-13] MEDS: VITAMIN A & D 5 GM OINT PACKET TOP SCH (21:32)
[2017-07-14] VITALS (11 sets, daily range): BP systolic 120–133; BP diastolic 65–73; PULSE 85–93; RESP 18–20
[2017-07-14] MEDS: LACTULOSE 30ML CUP PO SCH ×6 (02:30→21:00)
[2017-07-14] MEDS: LACTULOSE ENEMA 1,000 ML BTL PR SCH ×4 (07:00→23:00)
[2017-07-14 07:41] LABS: ABNORMAL IP MESSAGE 1; BASOPHILS % 0.2 % (0.0-2.0); EOSINOPHILS % 0.2 % (0.0-7.0); HEMATOCRIT 42.9 % (37.0-47.0); HEMOGLOBIN 14.2 g/dl (12.0-16.0); LYMPHOCYTES # 0.6 10^3/ul (0.8-2.9); LYMPHOCYTES % 10.5 % (15.0-51.0); MEAN CORPUSCULAR HEMOGLOBIN 36.8 pg (29.0-33.0); MEAN CORPUSCULAR HGB CONC 33.1 g/dl (32.0-37.0); MEAN CORPUSCULAR VOLUME 111.1 fl (82.0-101.0); MEAN PLATELET VOLUME 10.7 fl (7.4-10.4); MONOCYTE # 0.6 10^3/ul (0.3-0.9); MONOCYTES % 11.1 % (0.0-11.0); NEUTROPHIL # 4.4 10^3/ul (1.6-7.5); NEUTROPHILS % 76.9 % (39.0-77.0); PLATELET COUNT 50 10^3/UL (140-415); RED BLOOD COUNT 3.86 10^6/ul (4.20-5.40); RED CELL DISTRIBUTION WIDTH 21.6 % (11.5-14.5); WHITE BLOOD COUNT 5.7 10^3/ul (4.8-10.8)
[2017-07-14 07:52] LABS: POSITIVE DIFF @See below
[2017-07-14 08:06] LABS: ALBUMIN 3.3 g/dl (3.3-4.9); ALBUMIN/GLOBULIN RATIO 0.67; BILIRUBIN,DIRECT 0.1 mg/dl (0.00-0.20); BILIRUBIN,INDIRECT 3.6 mg/dl (0-1.1); BILIRUBIN,TOTAL 3.7 mg/dl (0.2-1.3); CALCIUM 10.6 mg/dl (8.4-10.2); CREATININE 1.19 mg/dl (0.44-1.00); POTASSIUM 3.1 mmol/L (3.5-5.1); TOTAL PROTEIN 8.2 g/dl (6.1-8.1)
[2017-07-14] MEDS: POLYETHYLENE GLYCOL 17 GM PACKET PO SCH ×2 (08:46→21:00)
[2017-07-14] MEDS: RIFAXIMIN 550 MG TAB PO SCH ×2 (08:46→21:00)
[2017-07-14] MEDS: ENOXAPARIN 30 MG/0.3 ML SYG SC SCH (08:46)
--- NOTE | 2017-07-14 10:47 | PN ---
Date/Time of Note Date/Time of Note DATE: 07/14/17 TIME: 10:43 Assessment/Plan VTE Prophylaxis VTE Prophylaxis Intervention: heparin Lines/Catheters IV Catheter Type (from [facility]): Peripheral IV Urinary Cath still in place: No Assessment/Plan Chief Complaint/Hosp Course 72 yo female with decompensated cirrhosis (ascites, varices) who presents with progressive encephelopathy/obtundation over past few days from hepatic encephalopathy. Improving with lactulose/rifaxin though no yet back to baseline Hepatic encephelopathy - Continued lactulose PO from above and lactulose enema from below as tolerated. Remove NG tube - Rifaxamin - Miralax - Hold any sedatives TABBY, hypernatremia, hypokalemia: - From dehydration and hypovolemia 2/2 no PO and laxative induced diarrhea - Bolus fluids and encourage PO Cirrhosis: - No ascites present for paracentesis - Hold diuretics - continue bactrim ppx for SBP Discharge plan pending resolution of encephelopathy and PT evaluation Problems: Subjective 24 Hr Interval Summary Free Text/Dictation Lots of BMs Having nausea with lactulose PO, emesis a few times Mental status improving a bit Has not had any food, wants to eat Wants NG tube removed Exam/Review of Systems Vital Signs Vitals Vital Signs Date Time Temp Pulse Resp B/P Pulse Ox O2 Delivery O2 Flow Rate FiO2 07/14/17 08:08 93 07/14/17 04:40 98.2 18 124/72 92 07/13/17 06:29 Room Air 07/13/17 00:43 2.0 Intake and Output 07/13/17 07/13/17 07/14/17 15:00 23:00 07:00 Intake Total 50 ml Balance 50 ml Exam Alert and conversant. Oriented to her own name and hospital. Disoriented to date No flap or asterixis RRR Clear lungs Abdomen soft nt nd, umbilical hernia No edema present Results Result Diagram: 07/14/17 0635 07/14/17 0635 Results 24 hrs Laboratory Tests Test 07/14/17 06:35 White Blood Count 5.7 Red Blood Count 3.86 L Hemoglobin 14.2 Hematocrit 42.9 Mean Corpuscular Volume 111.1 H Mean Corpuscular Hemoglobin 36.8 H Mean Corpuscular Hemoglobin Concent 33.1 Red Cell Distribution Width 21.6 H Platelet Count 50 L Mean Platelet Volume 10.7 H Neutrophils % 76.9 Lymphocytes % 10.5 L Monocytes % 11.1 H Eosinophils % 0.2 Basophils % 0.2 Nucleated Red Blood Cells % 0.0 Neutrophils # 4.4 Lymphocytes # 0.6 L Monocytes # 0.6 Eosinophils # 0.0 Basophils # 0.0 Nucleated Red Blood Cells # 0.0 Sodium Level 152 H Potassium Level 3.1 L Chloride Level 104 Carbon Dioxide Level 34 H Anion Gap 17 H Blood Urea Nitrogen 62 H Creatinine 1.19 H Glucose Level 165 Calcium Level 10.6 H Total Bilirubin 3.7 H Direct Bilirubin 0.10 Indirect Bilirubin 3.6 H Aspartate Amino Transf (AST/SGOT) 68 H Alanine Aminotransferase (ALT/SGPT) 41 Alkaline Phosphatase 135 H Total Protein 8.2 H Albumin 3.3 Globulin 4.90 H Albumin/Globulin Ratio 0.67 Medications Medications Current Medications Lactulose (Enulose) 20 gm Q4 PO Last administered on 07/14/17 02:30; Admin Dose 20 GM; Start 07/10/17 at 17:00 Enoxaparin Sodium (Lovenox) 30 mg DAILY SC Last administered on 07/14/17 08: 46; Admin Dose 30 MG; Start 07/11/17 at 09:00 Rifaximin (Xifaxan) 550 mg BID PO Last administered on 07/14/17 08:46; Admin Dose 550 MG; Start 07/11/17 at 11:00 Lactulose (Lactulose Enema) 100 ml Q8 [place] Last administered on 07/14/17 07:00 ; Admin Dose 100 ML; Start 07/11/17 at 14:00 Polyethylene Glycol (Miralax) 17 gm BID PO Last administered on 07/14/17 08: 46; Admin Dose 17 GM; Start 07/12/17 at 21:00 Vitamin A/Vitamin D 1 applic 1 applic BID TOP Last administered on 07/13/17 21:32; Admin Dose 1 APPLIC; Start 07/13/17 at 21:00 Sodium Chloride 1,000 ml @ 1,000 mls/hr Q1H ONCE IV ; Start 07/14/17 at 11:00 ; Stop 07/14/17 at 11:59 Potassium Chloride (KCl 40 MEQ/250 ML NS) 250 ml @ 62.5 mls/hr ONCE ONCE IVPB ; Start 07/14/17 at 12:00; Stop 07/14/17 at 15:59 ANDRE GOODSON MD Jul 14, 2017 10:47
[2017-07-14] MEDS ORDERED: SOD CHLORIDE 0.9% 1,000 ML IV ONE (11:00)
[2017-07-14] MEDS ORDERED: POTASSIUM CHLORIDE 250 ML IVPB ONE (12:00)
[2017-07-14] MEDS: VITAMIN A & D 5 GM OINT PACKET TOP SCH ×2 (13:26→23:00)
[2017-07-14] MEDS: DEXTROSE 5%-0.45% NACL 1,000 ML IV SCH (13:33)
[2017-07-14] MEDS: MULTIVITAMINS THERAPEUTIC TAB PO SCH (13:34)
--- NOTE | 2017-07-14 16:38 | CONS ---
Date/Time of Note Date/Time of Note DATE: 07/14/17 TIME: 16:19 Assessment/Plan Assessment/Plan Chief Complaint/Hosp Course Assessment: Decompensated liver cirrhosis Hepatic encephalopathy-improving Rule out bowel obstruction Rule out hepatitis viral versus autoimmune Plan: CT of the abdomen with IV contrast Hepatitis panel DHEERAJ, ASMA, AMA Ferritin Keep patient n.p.o. until CT results are in If no obstruction can start clear liquid diet Monitor liver enzymes Monitor H&H, transfuse for hemoglobin less than 7.5 Consultation performed in collaboration with Subjective: Patient is awake and alert, answering questions. Complains of being hungry and discomfort of NG tube. Patient has been interviewed and examined. Plan of treatment has been explained. Nursing staff is aware of new orders. All laboratory data has been reviewed. Will continue close monitoring. Problems: Consultation Date/Type/Reason Admit Date/Time Date of Consultation: Jul 14, 2017 Type of Consultation: GI Reason for Consultation Hepatic encephalopathy Hx of Present Illness This is a 72-year-old female admitted for hepatic encephalopathy August 10, 2016. She reports feeling weak, fatigued and unable to walk when her family brought her to the hospital. She has decompensated liver cirrhosis with ascites. 1 month ago she was admitted for paracentesis. Current abdominal ultrasound shows small amount of fluid therefore paracentesis is not indicated. Patient recalls about a year ago she had an EGD and was diagnosed with varices . She has been encephalopathic during this admission and was treated with lactulose and rifaximin, she has an NG tube in place. Currently feeling better, mental status greatly improved, patient requests to remove NG tube and be fed. Patient is a poor historian. She denies any use of alcohol, drugs, or tobacco. Patient denies hematemesis, hematochezia. Yesterday patient had multiple episodes of vomiting, today she only vomited once. Her NG tube is being suctioned intermittently putting out 300-600 cc a day. Patient denies any family history of cancer, heart disease, or diabetes. According to the patient she is taking some medications for liver daily. The plan is to rule out any treatable causes of liver cirrhosis and rule out bowel obstruction. CT scan with contrast has been ordered. Blood work for hepatitis panel, ferritin, DHEERAJ, ASMA, AMA has been ordered. Gastrointestinal: no complaints (See HPI) Past Medical History Liver cirrhosis Past Surgical History Laparoscopic cholecystectomy and appendectomy Past Surgical Hx: no surgical history Family History Significant Family History: no pertinent family hx Social History Alcohol Use: rarely Smoking Status: Never smoker Exam/Review of Systems Vital Signs Vitals Vital Signs Date Time Temp Pulse Resp B/P Pulse Ox O2 Delivery O2 Flow Rate FiO2 07/14/17 13:46 98.4 90 20 132/70 91 07/13/17 06:29 Room Air 07/13/17 00:43 2.0 Intake and Output 07/13/17 07/13/17 07/14/17 15:00 23:00 07:00 Intake Total 50 ml Balance 50 ml Exam PHYSICAL EXAMINATION: GENERAL: Well developed, obese , well nourished, alert & oriented x 3, in no acute distress SKIN: No lesions, no stigmata chronic liver disease, multiple bruising LYMPHATIC: No palpable lymphadenopathy. HEAD: Normocephalic, atraumatic, no tenderness. EYES: Pupils equal reactive to light and accommodation, full extraocular movements, sclera clear, non-icteric, no discharge. EARS/NOSE AND THROAT: Ears normal, nose normal, oropharynx normal, oral membranes well hydrated without lesions. NECK: Supple, no masses, thyroid normal, JVP within normal limits, carotids normal without bruits. CHEST: Inspection within normal limits. CARDIOVASCULAR: Heart: Regular rate and rhythm, no murmurs, gallops or rubs. Peripheral pulses present within normal limits, no cyanosis, clubbing or edemas. No pulsatile abdominal mass RESPIRATORY: Lungs clear to auscultation and percussion, no wheezing, no rubs GASTROINTESTINAL AND LIVER: Abdomen: Soft, obese, generalized tenderness, non- distended, no hernias, no masses, no organomegaly, ascites, no guarding, no rebound tenderness, normoactive bowel sounds. Rectal: Deferred. GENITOURINARY: Female genitalia within normal limits.] EXTREMITIES: No cyanosis, clubbing or edema. Results Result Diagram: 07/14/17 0635 07/14/17 0635 Results 24 hrs Laboratory Tests Test 07/14/17 06:35 White Blood Count 5.7 Red Blood Count 3.86 L Hemoglobin 14.2 Hematocrit 42.9 Mean Corpuscular Volume 111.1 H Mean Corpuscular Hemoglobin 36.8 H Mean Corpuscular Hemoglobin Concent 33.1 Red Cell Distribution Width 21.6 H Platelet Count 50 L Mean Platelet Volume 10.7 H Neutrophils % 76.9 Lymphocytes % 10.5 L Monocytes % 11.1 H Eosinophils % 0.2 Basophils % 0.2 Nucleated Red Blood Cells % 0.0 Neutrophils # 4.4 Lymphocytes # 0.6 L Monocytes # 0.6 Eosinophils # 0.0 Basophils # 0.0 Nucleated Red Blood Cells # 0.0 Sodium Level 152 H Potassium Level 3.1 L Chloride Level 104 Carbon Dioxide Level 34 H Anion Gap 17 H Blood Urea Nitrogen 62 H Creatinine 1.19 H Glucose Level 165 Calcium Level 10.6 H Total Bilirubin 3.7 H Direct Bilirubin 0.10 Indirect Bilirubin 3.6 H Aspartate Amino Transf (AST/SGOT) 68 H Alanine Aminotransferase (ALT/SGPT) 41 Alkaline Phosphatase 135 H Total Protein 8.2 H Albumin 3.3 Globulin 4.90 H Albumin/Globulin Ratio 0.67 Medications Medications Current Medications Lactulose (Enulose) 20 gm Q4 PO Last administered on 07/14/17 02:30; Admin Dose 20 GM; Start 07/10/17 at 17:00 Enoxaparin Sodium (Lovenox) 30 mg DAILY SC Last administered on 07/14/17 08: 46; Admin Dose 30 MG; Start 07/11/17 at 09:00 Rifaximin (Xifaxan) 550 mg BID PO Last administered on 07/14/17 08:46; Admin Dose 550 MG; Start 07/11/17 at 11:00 Lactulose (Lactulose Enema) 100 ml Q8 DC Last administered on 07/14/17 14:11 ; Admin Dose 100 ML; Start 07/11/17 at 14:00 Polyethylene Glycol (Miralax) 17 gm BID PO Last administered on 07/14/17 08: 46; Admin Dose 17 GM; Start 07/12/17 at 21:00 Vitamin A/Vitamin D 1 applic 1 applic BID TOP Last administered on 07/14/17 13:26; Admin Dose 1 APPLIC; Start 07/13/17 at 21:00 Potassium Chloride 250 ml @ 62.5 mls/hr ONCE ONCE IVPB Last administered on 07/14/17 12:03; Admin Dose 62.5 MLS/HR; Start 07/14/17 at 12:00; Stop at 15:59 Dextrose/Sodium Chloride (D5-1/2ns) 1,000 ml @ 75 mls/hr [id number] IV Last administered on 07/14/17 13:33; Admin Dose 75 MLS/HR; Start 07/14/17 at 13:00 Multivitamins Therapeutic (Theragran) 1 tab DAILY PO Last administered on 07/14 13:34; Admin Dose 1 TAB; Start 07/14/17 at 13:00 Copies To: CC: BRANT BUSTILLOS MD, ANASTASIA NP Jul 14, 2017 16:29
[2017-07-15] VITALS (10 sets, daily range): BP systolic 118–133; BP diastolic 58–70; PULSE 70–85; RESP 17–18
[2017-07-15] MEDS: LACTULOSE 30ML CUP PO SCH ×7 (01:00→21:00)
[2017-07-15] MEDS: DEXTROSE 5%-0.45% NACL 1,000 ML IV SCH (04:58)
[2017-07-15] MEDS: LACTULOSE ENEMA 1,000 ML BTL PR SCH (06:25)
[2017-07-15 08:37] LABS: ABNORMAL IP MESSAGE 1; BASOPHILS % 0.2 % (0.0-2.0); EOSINOPHILS # 0.1 10^3/ul (0.0-0.5); EOSINOPHILS % 1.1 % (0.0-7.0); HEMATOCRIT 43.9 % (37.0-47.0); HEMOGLOBIN 14.2 g/dl (12.0-16.0); LYMPHOCYTES # 0.8 10^3/ul (0.8-2.9); LYMPHOCYTES % 18.9 % (15.0-51.0); MEAN CORPUSCULAR HEMOGLOBIN 37.3 pg (29.0-33.0); MEAN CORPUSCULAR HGB CONC 32.3 g/dl (32.0-37.0); MEAN CORPUSCULAR VOLUME 115.2 fl (82.0-101.0); MEAN PLATELET VOLUME 11.3 fl (7.4-10.4); MONOCYTE # 0.7 10^3/ul (0.3-0.9); MONOCYTES % 16.4 % (0.0-11.0); NEUTROPHIL # 2.8 10^3/ul (1.6-7.5); NEUTROPHILS % 62.5 % (39.0-77.0); NUCLEATED RED BLOOD CELLS% 0.4 /100WBC (0.0-0.0); PLATELET COUNT 32 10^3/UL (140-415); RED BLOOD COUNT 3.81 10^6/ul (4.20-5.40); RED CELL DISTRIBUTION WIDTH 21.4 % (11.5-14.5); WHITE BLOOD COUNT 4.5 10^3/ul (4.8-10.8)
[2017-07-15 09:02] LABS: POSITIVE DIFF @See below
[2017-07-15] MEDS ORDERED: IOHEXOL 300MG/ML 150 ML BTL ONE (09:07)
[2017-07-15] MEDS ORDERED: SOD CHLORIDE 0.9% 100 ML ONE (09:07)
--- NOTE | 2017-07-15 09:23 | PN ---
Date/Time of Note Date/Time of Note DATE: 07/15/17 TIME: 09:14 Assessment/Plan VTE Prophylaxis VTE Prophylaxis Intervention: SCD's Lines/Catheters IV C[facility]ter Type (from [facility]): Peripheral IV Urinary Cath still in place: No Assessment/Plan Chief Complaint/Hosp Course Chief Complaint/Hosp Course Assessment: Decompensated liver cirrhosis Hepatic encephalopathy-improving Rule out bowel obstruction Rule out hepatitis viral versus autoimmune Thrombocytopenia Plan: CT of the abdomen with IV contrast- pending Hep Bs AB- negative DHEERAJ, ASMA, AMA- pending Ferritin- 400's Keep patient n.p.o. until CT results are in If no obstruction can start clear liquid diet Monitor liver enzymes Monitor H&H, transfuse for hemoglobin less than 7.5 Patient in collaboration with Subjective: Patient getting CT scan at time of evaluation, will reassess tomorrow. H/H stable, PLT 32 PHYSICAL EXAMINATION: GENERAL: Well developed, obese , well nourished, alert & oriented x 3, in no acute distress SKIN: No lesions, no stigmata chronic liver disease, multiple bruising LYMPHATIC: No palpable lymphadenopathy. HEAD: Normocephalic, atraumatic, no tenderness. EYES: Pupils equal reactive to light and accommodation, full extraocular movements, sclera clear, non-icteric, no discharge. EARS/NOSE AND THROAT: Ears normal, nose normal, oropharynx normal, oral membranes well hydrated without lesions. NECK: Supple, no masses, thyroid normal, JVP within normal limits, carotids normal without bruits. CHEST: Inspection within normal limits. CARDIOVASCULAR: Heart: Regular rate and rhythm, no murmurs, gallops or rubs. Peripheral pulses present within normal limits, no cyanosis, clubbing or edemas. No pulsatile abdominal mass RESPIRATORY: Lungs clear to auscultation and percussion, no wheezing, no rubs GASTROINTESTINAL AND LIVER: Abdomen: Soft, obese, generalized tenderness, non- distended, no hernias, no masses, no organomegaly, ascites, no guarding, no rebound tenderness, normoactive bowel sounds. Rectal: Deferred. GENITOURINARY: Female genitalia within normal limits. EXTREMITIES: No cyanosis, clubbing or edema. Problems: Exam/Review of Systems Vital Signs Vitals Vital Signs Date Time Temp Pulse Resp B/P Pulse Ox O2 Delivery O2 Flow Rate FiO2 07/15/17 08:03 98.3 77 17 133/61 95 07/13/17 06:29 Room Air 07/13/17 00:43 2.0 Intake and Output 07/14/17 07/14/17 07/15/17 15:00 23:00 07:00 Intake Total 1150 ml 550 ml 0 ml Balance 1150 ml 550 ml 0 ml Results Result Diagram: 07/15/17 0759 07/14/17 0635 Results 24 hrs Laboratory Tests Test 07/14/17 16:53 07/15/17 07:59 Ferritin 421.0 H Hepatitis B Surface Antibody NEGATIVE White Blood Count 4.5 #L Red Blood Count 3.81 L Hemoglobin 14.2 Hematocrit 43.9 Mean Corpuscular Volume 115.2 H Mean Corpuscular Hemoglobin 37.3 H Mean Corpuscular Hemoglobin Concent 32.3 Red Cell Distribution Width 21.4 H Platelet Count 32 #L Mean Platelet Volume 11.3 H Neutrophils % 62.5 Lymphocytes % 18.9 Monocytes % 16.4 H Eosinophils % 1.1 Basophils % 0.2 Nucleated Red Blood Cells % 0.4 H Neutrophils # 2.8 Lymphocytes # 0.8 Monocytes # 0.7 Eosinophils # 0.1 Basophils # 0.0 Nucleated Red Blood Cells # 0.0 Medications Medications Current Medications Lactulose (Enulose) 20 gm Q4 PO Last administered on 07/14/17 02:30; Admin Dose 20 GM; Start 07/10/17 at 17:00 Enoxaparin Sodium (Lovenox) 30 mg DAILY SC Last administered on 07/14/17 08: 46; Admin Dose 30 MG; Start 07/11/17 at 09:00 Rifaximin (Xifaxan) 550 mg BID PO Last administered on 07/14/17 08:46; Admin Dose 550 MG; Start 07/11/17 at 11:00 Lactulose (Lactulose Enema) 100 ml Q8 AL Last administered on 07/15/17 06:25 ; Admin Dose 100 ML; Start 07/11/17 at 14:00 Polyethylene Glycol (Miralax) 17 gm BID PO Last administered on 07/14/17 08: 46; Admin Dose 17 GM; Start 07/12/17 at 21:00 Vitamin A/Vitamin D 1 applic 1 applic BID TOP Last administered on 07/14/17 23:00; Admin Dose 1 APPLIC; Start 07/13/17 at 21:00 Dextrose/Sodium Chloride (D5-1/2ns) 1,000 ml @ 75 mls/hr [id number] IV Last administered on 07/15/17 04:58; Admin Dose 75 MLS/HR; Start 07/14/17 at 13:00 Multivitamins Therapeutic (Theragran) 1 tab DAILY PO Last administered on 07/14 13:34; Admin Dose 1 TAB; Start 07/14/17 at 13:00 HUMPHREY ROBERTS Jul 15, 2017 09:23
--- NOTE | 2017-07-15 09:49 | RADRPT ---
PROCEDURE: CT Abdomen and Pelvis with contrast. CLINICAL INDICATION: Abdominal pain TECHNIQUE: CT scan of the abdomen and pelvis with contrast was performed on a multidetector high-r esolution CT scanner. Coronal and sagittal reformatted images were obtained from the axial source im ages. Images were reviewed on a high-resolution PACS workstation. 80 cc of Isovue 300 iodinated cont rast was administered intravenously without reported complication. The total exam CTDI equals 18 mG y and the total exam DLP equals 1093 mGy-cm. One or more of the following dose reduction techniques were used: Automated exposure control, Adjustment of the mA and/or kV according to patient size, an d/or use of iterative reconstruction technique. DICOM images are available. COMPARISON: None. FINDINGS: Coronary arterial and aortic atherosclerosis. Heterogeneous density to the liver with mildly nodular surface contour. There is cavernous transform ation of the portal vein. Spleen is mildly enlarged. Upper abdominal varices are seen. Adrenals are grossly unremarkable. Round structure adjacent to the medial aspect of the spleen measuring 2.6 cm m ay represent a splenule. Status post cholecystectomy. No hydronephrosis. No obstructing renal stone. Fluid distended, dilated proximal to mid small bowel loops are identified with protrusion into a rig ht inguinal hernia containing loculated ascites. Decompressed terminal ileal loops are seen. Scatter ed colonic diverticulosis. Normal-caliber appendix. No evidence of pneumoperitoneum. Mildly prominent upper abdominal lymph nodes are seen. Scattered mi ld upper abdominal ascites. Fat containing umbilical hernia. Degenerative changes of the spine. IMPRESSION: Small bowel obstruction with dilated proximal small bowel loops and protrusion of small bowel loops into a right inguinal hernia containing loculated ascites. Decompressed terminal ileal loops are see n in the right lower quadrant. Scattered colonic diverticulosis. Normal-caliber appendix. Cirrhosis with stigmata of portal hypertension including mild scattered ascites, upper abdominal lizzeth ices and mild splenomegaly. 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 RPTAT: AA .Nba Sousa MD, Date Time Electronically viewed and signed by .Nba Sousa MD, on 07/15/2017 09:49 .T/
[2017-07-15 10:25] LABS: ALBUMIN 3.2 g/dl (3.3-4.9); ALBUMIN/GLOBULIN RATIO 0.61; BILIRUBIN,DIRECT 0.1 mg/dl (0.00-0.20); BILIRUBIN,TOTAL 3.1 mg/dl (0.2-1.3); CALCIUM 10.8 mg/dl (8.4-10.2); CREATININE 1.55 mg/dl (0.44-1.00); POTASSIUM 3.6 mmol/L (3.5-5.1); TOTAL PROTEIN 8.4 g/dl (6.1-8.1)
[2017-07-15] MEDS: RIFAXIMIN 550 MG TAB PO SCH ×2 (10:36→21:00)
[2017-07-15] MEDS: POLYETHYLENE GLYCOL 17 GM PACKET PO SCH ×2 (10:36→21:00)
[2017-07-15] MEDS: MULTIVITAMINS THERAPEUTIC TAB PO SCH (10:36)
[2017-07-15] MEDS: VITAMIN A & D 5 GM OINT PACKET TOP SCH ×2 (10:37→21:00)
[2017-07-15] MEDS: ENOXAPARIN 30 MG/0.3 ML SYG SC SCH (10:37)
[2017-07-15] MEDS: D5W + KCL 20 MEQ 1,000 ML IV SCH (14:48)
--- NOTE | 2017-07-15 15:17 | PN ---
Date/Time of Note Date/Time of Note DATE: 07/15/17 TIME: 15:06 Assessment/Plan VTE Prophylaxis VTE Prophylaxis Intervention: LMWH Lines/Catheters IV Catheter Type (from Nrs): Peripheral IV Urinary Cath still in place: No Assessment/Plan Chief Complaint/Hosp Course 1.Hepatic encephalopathy-improving -DC NG tube and lactulose per rectum - Continued lactulose PO and Rifaxamin - Hold any sedatives 2. Prerenal acute kidney injury TABBY with hypernatremia and hypokalemia secondary to lactulose use -Start D5W with potassium 3. Cirrhosis likely secondary to GUARDADO - No ascites present for paracentesis - Hold diuretics 4. History of diabetes Patient not currently on any diabetic meds but sugars are elevated A1c Prophylaxis: Lovenox Problems: Subjective 24 Hr Interval Summary Constitutional: disoriented Exam/Review of Systems Vital Signs Vitals Vital Signs Date Time Temp Pulse Resp B/P Pulse Ox O2 Delivery O2 Flow Rate FiO2 07/15/17 12:06 98.1 77 17 131/63 98 07/13/17 06:29 Room Air 07/13/17 00:43 2.0 Intake and Output 07/14/17 07/14/17 07/15/17 15:00 23:00 07:00 Intake Total 1150 ml 550 ml 0 ml Balance 1150 ml 550 ml 0 ml Exam Constitutional: alert Psych: confusion Respiratory: clear to auscultation Cardiovascular: regular rate and rhythm Gastrointestinal: soft, No distended Musculoskeletal: nl extremities to inspection Results Result Diagram: 07/15/17 0759 07/15/17 0759 Results 24 hrs Laboratory Tests Test 07/14/17 16:53 07/15/17 07:59 Ferritin 421.0 H Hepatitis B Surface Antibody NEGATIVE White Blood Count 4.5 #L Red Blood Count 3.81 L Hemoglobin 14.2 Hematocrit 43.9 Mean Corpuscular Volume 115.2 H Mean Corpuscular Hemoglobin 37.3 H Mean Corpuscular Hemoglobin Concent 32.3 Red Cell Distribution Width 21.4 H Platelet Count 32 #L Mean Platelet Volume 11.3 H Neutrophils % 62.5 Lymphocytes % 18.9 Monocytes % 16.4 H Eosinophils % 1.1 Basophils % 0.2 Nucleated Red Blood Cells % 0.4 H Neutrophils # 2.8 Lymphocytes # 0.8 Monocytes # 0.7 Eosinophils # 0.1 Basophils # 0.0 Nucleated Red Blood Cells # 0.0 Sodium Level 156 H Potassium Level 3.6 Chloride Level 111 H Carbon Dioxide Level 31 Anion Gap 18 H Blood Urea Nitrogen 77 H Creatinine 1.55 H Glucose Level 193 Calcium Level 10.8 H Total Bilirubin 3.1 H Direct Bilirubin 0.10 Indirect Bilirubin 3.0 H Aspartate Amino Transf (AST/SGOT) 75 H Alanine Aminotransferase (ALT/SGPT) 35 Alkaline Phosphatase 129 H Total Protein 8.4 H Albumin 3.2 L Globulin 5.20 H Albumin/Globulin Ratio 0.61 Medications Medications Current Medications Lactulose (Enulose) 20 gm Q4 PO Last administered on 07/15/17 14:44; Admin Dose 20 GM; Start 07/10/17 at 17:00 Enoxaparin Sodium (Lovenox) 30 mg DAILY SC Last administered on 07/15/17 10: 37; Admin Dose 30 MG; Start 07/11/17 at 09:00 Rifaximin (Xifaxan) 550 mg BID PO Last administered on 07/15/17 10:36; Admin Dose 550 MG; Start 07/11/17 at 11:00 Polyethylene Glycol (Miralax) 17 gm BID PO Last administered on 07/15/17 10: 36; Admin Dose 17 GM; Start 07/12/17 at 21:00 Vitamin A/Vitamin D (Vitamin A & D Oint) 1 applic BID TOP Last administered on 07/15/17 10:37; Admin Dose 1 APPLIC; Start 07/13/17 at 21:00 Multivitamins Therapeutic 1 tab 1 tab DAILY PO Last administered on 07/15/17 10:36; Admin Dose 1 TAB; Start 07/14/17 at 13:00 Potassium Chloride/Dextrose (D5W + KCl 20 Meq) 1,000 ml @ 100 mls/hr Q10H IV Last administered on 07/15/17 14:48; Admin Dose 100 MLS/HR; Start 07/15/17 at 13:30 LES SIMON Jul 15, 2017 15:17
[2017-07-16] VITALS (12 sets, daily range): BP systolic 114–129; BP diastolic 56–72; PULSE 70–90; RESP 17–19
[2017-07-16] MEDS: LACTULOSE 30ML CUP PO SCH ×6 (01:00→21:23)
--- NOTE | 2017-07-16 01:45 | RADRPT ---
PROCEDURE: Chest. CLINICAL INDICATION: Chest pain. TECHNIQUE: Single frontal view of the chest was obtained. COMPARISON: 07/11/2017. FINDINGS: There is a nasogastric tube extending to the stomach. The cardiac silhouette is within normal limits . The aortic arch is calcified. There is no focal consolidation, vascular congestion or pleural ef fusion. There is no pneumothorax. IMPRESSION: No evidence for active cardiopulmonary disease. Aortic atherosclerosis. Nasogastric tube in place. .Jovan Noe MD, MD Date Time Electronically viewed and signed by .Jovan Noe MD, on 07/16/2017 01:45 .T/
[2017-07-16] MEDS: D5W + KCL 20 MEQ 1,000 ML IV SCH ×3 (01:52→17:46)
[2017-07-16 09:09] LABS: ABNORMAL IP MESSAGE 1; BASOPHILS % 0.2 % (0.0-2.0); EOSINOPHILS # 0.2 10^3/ul (0.0-0.5); EOSINOPHILS % 3.3 % (0.0-7.0); HEMATOCRIT 41.4 % (37.0-47.0); HEMOGLOBIN 13.8 g/dl (12.0-16.0); LYMPHOCYTES # 1.4 10^3/ul (0.8-2.9); LYMPHOCYTES % 23.7 % (15.0-51.0); MEAN CORPUSCULAR HEMOGLOBIN 37.5 pg (29.0-33.0); MEAN CORPUSCULAR HGB CONC 33.3 g/dl (32.0-37.0); MEAN CORPUSCULAR VOLUME 112.5 fl (82.0-101.0); MEAN PLATELET VOLUME 11.5 fl (7.4-10.4); MONOCYTE # 0.7 10^3/ul (0.3-0.9); MONOCYTES % 12.3 % (0.0-11.0); NEUTROPHIL # 3.4 10^3/ul (1.6-7.5); NEUTROPHILS % 59.3 % (39.0-77.0); NUCLEATED RED BLOOD CELLS% 0.5 /100WBC (0.0-0.0); RED BLOOD COUNT 3.68 10^6/ul (4.20-5.40); RED CELL DISTRIBUTION WIDTH 21.2 % (11.5-14.5); WHITE BLOOD COUNT 5.8 10^3/ul (4.8-10.8)
[2017-07-16 09:13] LABS: PLATELET COUNT 37 10^3/UL (140-415); POSITIVE DIFF @See below
[2017-07-16 09:46] LABS: CALCIUM 10.4 mg/dl (8.4-10.2); CREATININE 1.32 mg/dl (0.44-1.00); MAGNESIUM 2.2 mg/dl (1.7-2.5); PHOSPHORUS 2.9 mg/dl (2.5-4.9); POTASSIUM 4.2 mmol/L (3.5-5.1)
[2017-07-16] MEDS: MULTIVITAMINS THERAPEUTIC TAB PO SCH (10:17)
[2017-07-16] MEDS: POLYETHYLENE GLYCOL 17 GM PACKET PO SCH ×2 (10:17→21:24)
[2017-07-16] MEDS: VITAMIN A & D 5 GM OINT PACKET TOP SCH ×2 (10:18→21:24)
[2017-07-16] MEDS: RIFAXIMIN 550 MG TAB PO SCH ×2 (10:18→21:24)
[2017-07-16] MEDS: ENOXAPARIN 30 MG/0.3 ML SYG SC SCH (10:21)
--- NOTE | 2017-07-16 11:14 | RADRPT ---
PROCEDURE: XR Abdomen. CLINICAL INDICATION: Abdominal pain. TECHNIQUE: AP supine and decubitus abdomen x-ray. COMPARISON: CT July 15, 2017 FINDINGS: Nasogastric tube has its distal end in the expected location of the stomach. Small amount of scatter ed gas is noted in the colon. Multiple gas filled, dilated loops of small bowel measuring up to appr oximately 4.8 cm are seen throughout the abdomen. No organomegaly is observed. A few phleboliths a re identified in the pelvis. Degenerative changes are seen in the hips and spine. IMPRESSION: Continued presence of multiple, dilated loops of small bowel throughout the abdomen suggesting small bowel ileus or obstruction. 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 RPTAT: AA .Klaus Ba MD, Date Time Electronically viewed and signed by .Klaus Ba MD, on 07/16/2017 11:14 .P/
[2017-07-16] MEDS ORDERED: DIATR MEGLU/DIATRIZOATE SODIUM 120 ML BTL ONE (13:43)
--- NOTE | 2017-07-16 14:37 | CONS ---
Date/Time of Note Date/Time of Note DATE: 07/16/17 TIME: 14:08 Assessment/Plan Assessment/Plan Chief Complaint/Hosp Course 1. SBO with dilated proximal small bowel loops and protrusion of small bowel loops into a right inguinal hernia containing loculated ascites; Dr. Lyon able to manually reduce hernia; pt with +bowel function -no emergent surgical intervention needed at this time; patient may follow with us outpatient for elective hernia repair after medical optimization 2. Hepatic encephalopathy: s/p rifaximin, lactulose; improving -medical management per gi 3. Liver cirrhosis with portal hypertension including mild scattered ascites, upper abdominal varices and mild splenomegaly; recent sbp -medical management and hepatology followup -fluid buildup management 4. Thrombocytopenia: likely 2/2 #3 -bleeding precautions -as above 5. Hyperbilirubinemia: likely 2/2 above -as above 6. Hypoalbuminemia: multifactorial -optimize nutrition as able - as above 7. Coagulopathy 2/2 #3 -as above 8. Diverticulosis without diverticulitis -monitor and outpatient follow up Thank you. Patient seen and examined in collaboration with Dr. Song Lyon. Problems: Consultation Date/Type/Reason Admit Date/Time Date of Consultation: Jul 16, 2017 Type of Consultation: Surgical Reason for Consultation SBO Referring Provider: LES SIMON of Present Illness Sweta Contreras is a 72 yo woman who presented to [facility] with complaints of altered mental status. She has multiple comorbidities but more significantly liver cirrhosis with recent hospitalization for SBP and bacteremia. She was noted to have elevated ammonia level and thrombocytopenia at admission. She was given lactulose and rifaximin and has improved in mentation since that time. She was however noted to have sbo per imaging. She was noted to have dilated proximal small bowel loops and protrusion of small bowel loops into a right inguinal hernia containing loculated ascites. No reports of vomiting, however, she had large output per ng tube. She was noted to have had a small bowel movement. General surgery was asked to evaluate. Constitutional: No chills, No febrile Eyes: No visual change ENT: No congestion Respiratory: No cough, No pleuritic pain, No shortness of breath Cardiovascular: No chest pain, No palpitations Gastrointestinal: other (as above) Genitourinary: No hematuria Musculoskeletal: No back pain Skin: No rash Neurologic: confusion, No dizziness, No headache Past Medical History Liver cirrhosis ascites sbp bacteremia Past Surgical History Past Surgical Hx: no surgical history Family History Significant Family History: no pertinent family hx Social History Alcohol Use: rarely Smoking Status: Never smoker Drug Use: none Exam/Review of Systems Vital Signs Vitals Vital Signs Date Time Temp Pulse Resp B/P Pulse Ox O2 Delivery O2 Flow Rate FiO2 07/16/17 12:38 97.6 73 17 119/58 94 07/13/17 06:29 Room Air 07/13/17 00:43 2.0 Intake and Output 07/15/17 07/15/17 07/16/17 15:00 23:00 07:00 Intake Total 120 ml 0 ml Balance 120 ml 0 ml Exam Constitutional: alert, oriented Psych: nl mood/affect Head: atraumatic, normocephalic Eyes: nl lids, nl sclera ENMT: mucosa pink and moist, nl nasal mucosa & septum Neck: non-tender, supple Respiratory: clear to auscultation, normal air movement Cardiovascular: nl pulses, regular rate and rhythm Gastrointestinal: other (right palpable hernia, rotund abdomen), soft, tender ( min ) Genitourinary - Female: nl adnexae, nl external genitalia Musculoskeletal: nl extremities to inspection Extremities: normal pulses Neurological: nl mental status, nl speech, nl strength Skin: rash or lesions Lymph: nl lymph nodes Results Result Diagram: 07/16/17 0844 07/16/17 0844 Results 24 hrs Laboratory Tests Test 07/16/17 08:44 White Blood Count 5.8 # Red Blood Count 3.68 L Hemoglobin 13.8 Hematocrit 41.4 Mean Corpuscular Volume 112.5 H Mean Corpuscular Hemoglobin 37.5 H Mean Corpuscular Hemoglobin Concent 33.3 Red Cell Distribution Width 21.2 H Platelet Count 37 L Mean Platelet Volume 11.5 H Neutrophils % 59.3 Lymphocytes % 23.7 Monocytes % 12.3 H Eosinophils % 3.3 Basophils % 0.2 Nucleated Red Blood Cells % 0.5 H Neutrophils # 3.4 Lymphocytes # 1.4 Monocytes # 0.7 Eosinophils # 0.2 Basophils # 0.0 Nucleated Red Blood Cells # 0.0 Sodium Level 144 Potassium Level 4.2 Chloride Level 101 # Carbon Dioxide Level 37 H Anion Gap 10 # Blood Urea Nitrogen 72 H Creatinine 1.32 H Glucose Level 190 Hemoglobin A1c 4.8 Calcium Level 10.4 H Phosphorus Level 2.9 Magnesium Level 2.2 Medications Medications Current Medications Lactulose (Enulose) 20 gm Q4 PO Last administered on 07/16/17 10:17; Admin Dose 20 GM; Start 07/10/17 at 17:00 Enoxaparin Sodium (Lovenox) 30 mg DAILY SC Last administered on 07/16/17 10: 21; Admin Dose 30 MG; Start 07/11/17 at 09:00 Rifaximin (Xifaxan) 550 mg BID PO Last administered on 07/16/17 10:18; Admin Dose 550 MG; Start 07/11/17 at 11:00 Polyethylene Glycol (Miralax) 17 gm BID PO Last administered on 07/16/17 10: 17; Admin Dose 17 GM; Start 07/12/17 at 21:00 Vitamin A/Vitamin D (Vitamin A & D Oint) 1 applic BID TOP Last administered on 07/16/17 10:18; Admin Dose 1 APPLIC; Start 07/13/17 at 21:00 Multivitamins Therapeutic 1 tab 1 tab DAILY PO Last administered on 07/16/17 10:17; Admin Dose 1 TAB; Start 07/14/17 at 13:00 Potassium Chloride/Dextrose (D5W + KCl 20 Meq) 1,000 ml @ 100 mls/hr Q10H IV Last administered on 07/16/17 01:52; Admin Dose 100 MLS/HR; Start 07/15/17 at 13:30 NICHOLAS WRIGHT NP Jul 16, 2017 14:19
[2017-07-16] MEDS ORDERED: LIDOCAINE 1% (MPF) 30 ML INJ ONE (15:19)
[2017-07-16] MEDS ORDERED: BUPIVACAINE 0.25%/EPI (SDV) 30 ML INJ ONE (15:19)
--- NOTE | 2017-07-16 15:35 | PN ---
Date/Time of Note Date/Time of Note DATE: 07/16/17 TIME: 15:33 Assessment/Plan VTE Prophylaxis VTE Prophylaxis Intervention: LMWH Lines/Catheters IV [facility] Peripheral IV Urinary Cath still in place: No Assessment/Plan Chief Complaint/Hosp Course 1.Hepatic encephalopathy -Continue lactulose and Rifaxamin - Hold any sedatives 2. Prerenal acute kidney injury TABBY with hypernatremia and hypokalemia secondary to lactulose use-improved with IV fluids -Continue D5W with potassium 3. Cirrhosis likely secondary to GUARDADO - No ascites present for paracentesis - Hold diuretics 4. History of diabetes Patient not currently on any diabetic meds but sugars are elevated A1c 4.8 5. Small bowel obstruction NG tube reinserted and patient is now n.p.o. Small bowel follow-through today Surgical consult obtained Prophylaxis: Lovenox Problems: Subjective 24 Hr Interval Summary Constitutional: disoriented Exam/Review of Systems Vital Signs Vitals Vital Signs Date Time Temp Pulse Resp B/P Pulse Ox O2 Delivery O2 Flow Rate FiO2 07/16/17 12:38 97.6 73 17 119/58 94 07/13/17 06:29 Room Air 07/13/17 00:43 2.0 Intake and Output 07/15/17 07/15/17 07/16/17 14:59 22:59 06:59 Intake Total 120 ml Balance 120 ml Exam Constitutional: alert Respiratory: clear to auscultation Cardiovascular: regular rate and rhythm Gastrointestinal: soft, No distended Musculoskeletal: nl extremities to inspection Results Result Diagram: 07/16/17 0844 07/16/17 0844 Results 24 hrs Laboratory Tests Test 07/16/17 08:44 White Blood Count 5.8 # Red Blood Count 3.68 L Hemoglobin 13.8 Hematocrit 41.4 Mean Corpuscular Volume 112.5 H Mean Corpuscular Hemoglobin 37.5 H Mean Corpuscular Hemoglobin Concent 33.3 Red Cell Distribution Width 21.2 H Platelet Count 37 L Mean Platelet Volume 11.5 H Neutrophils % 59.3 Lymphocytes % 23.7 Monocytes % 12.3 H Eosinophils % 3.3 Basophils % 0.2 Nucleated Red Blood Cells % 0.5 H Neutrophils # 3.4 Lymphocytes # 1.4 Monocytes # 0.7 Eosinophils # 0.2 Basophils # 0.0 Nucleated Red Blood Cells # 0.0 Sodium Level 144 Potassium Level 4.2 Chloride Level 101 # Carbon Dioxide Level 37 H Anion Gap 10 # Blood Urea Nitrogen 72 H Creatinine 1.32 H Glucose Level 190 Hemoglobin A1c 4.8 Calcium Level 10.4 H Phosphorus Level 2.9 Magnesium Level 2.2 Medications Medications Current Medications Lactulose (Enulose) 20 gm Q4 PO Last administered on 07/16/17 10:17; Admin Dose 20 GM; Start 07/10/17 at 17:00 Enoxaparin Sodium (Lovenox) 30 mg DAILY SC Last administered on 07/16/17 10: 21; Admin Dose 30 MG; Start 07/11/17 at 09:00 Rifaximin (Xifaxan) 550 mg BID PO Last administered on 07/16/17 10:18; Admin Dose 550 MG; Start 07/11/17 at 11:00 Polyethylene Glycol (Miralax) 17 gm BID PO Last administered on 07/16/17 10: 17; Admin Dose 17 GM; Start 07/12/17 at 21:00 Vitamin A/Vitamin D (Vitamin A & D Oint) 1 applic BID TOP Last administered on 07/16/17 10:18; Admin Dose 1 APPLIC; Start 07/13/17 at 21:00 Multivitamins Therapeutic 1 tab 1 tab DAILY PO Last administered on 07/16/17 10:17; Admin Dose 1 TAB; Start 07/14/17 at 13:00 Potassium Chloride/Dextrose (D5W + KCl 20 Meq) 1,000 ml @ 100 mls/hr Q10H IV Last administered on 07/16/17 01:52; Admin Dose 100 MLS/HR; Start 07/15/17 at 13:30 LES SIMON Jul 16, 2017 15:35
--- NOTE | 2017-07-16 15:44 | RADRPT ---
PROCEDURE: Small bowel follow-through. CLINICAL INDICATION: Abdomen pain. TECHNIQUE: Water-soluble contrast was administered orally and 5 radiographs of the abdomen and pel vis were obtained. COMPARISON: CT scan of the abdomen and pelvis dated 07/15/2017. FINDINGS: On the preliminary radiograph, the nasogastric tube tip is in the stomach. Surgical clips are presen t in the right upper quadrant. There are dilated loops of small bowel in the abdomen consistent with small bowel obstruction. Following infusion of contrast into the nasogastric tube, contrast remains in the stomach in proxima l duodenum up to 30 minutes. The small bowel follow-through was then terminated at the request of the referring physician. IMPRESSION: 1. Nasogastric tube tip in the stomach. 2. Small bowel obstruction. 3. The small bowel follow-through was terminated at 30 minutes at the request of the referring phys laron. RPTAT: QQ .Oz Naranjo MD, MD Date Time Electronically viewed and signed by .Oz Naranjo MD, on 07/16/2017 15:44 .R/
--- NOTE | 2017-07-16 16:41 | PN ---
Date/Time of Note Date/Time of Note DATE: 07/16/17 TIME: 16:16 Assessment/Plan VTE Prophylaxis VTE Prophylaxis Intervention: SCD's Lines/Catheters [facility] Peripheral IV Urinary Cath still in place: No Assessment/Plan Chief Complaint/Hosp Course Assessment: Small bowel obstruction Decompensated liver cirrhosis Hepatic encephalopathy-improving Rule out hepatitis viral versus autoimmune Plan: NG tube reinserted and patient is n.p.o. Small bowel series- incomplete Surgical consult-will try to reduce manually otherwise surgery is indicated DHEERAJ, ASMA, AMA pending Ferritin Monitor liver enzymes Monitor H&H, transfuse for hemoglobin less than 7.5 Consultation performed in collaboration with Subjective: Patient is awake and alert, complaining of right lower quadrant pain. NG tube in place draining dark brown secretions . patient has been interviewed and questions have been answered. Nursing staff is aware of new orders. All laboratory data has been reviewed. Will continue close monitoring. PHYSICAL EXAMINATION: GENERAL: Well developed, well nourished, alert & oriented x 3, in no acute distress SKIN: No lesions, no stigmata chronic liver disease, no evidence of bleeding diathesis, left lower leg skin discoloration, multiple bruising LYMPHATIC: No palpable lymphadenopathy. HEAD: Normocephalic, atraumatic, no tenderness. EYES: Pupils equal reactive to light and accommodation, full extraocular movements, sclera clear, non-icteric, no discharge. EARS/NOSE AND THROAT: Ears normal, nose normal, oropharynx normal, oral membranes well hydrated without lesions. NG tube is in place NECK: Supple, no masses, thyroid normal, JVP within normal limits, carotids normal without bruits. CHEST: Inspection within normal limits. CARDIOVASCULAR: Heart: Regular rate and rhythm, no murmurs, gallops or rubs. Peripheral pulses present within normal limits, no cyanosis, clubbing or edemas. No pulsatile abdominal mass RESPIRATORY: Lungs clear to auscultation and percussion, no wheezing, no rubs GASTROINTESTINAL AND LIVER: Abdomen: Soft, right lower quadrant tenderness, non- distended, no hernias, no masses, no organomegaly, ascites, no guarding, no rebound tenderness, normoactive bowel sounds. Rectal: Deferred. GENITOURINARY: Female genitalia within normal limits. EXTREMITIES: No cyanosis, clubbing or edema. Problems: Exam/Review of Systems Vital Signs Vitals Vital Signs Date Time Temp Pulse Resp B/P Pulse Ox O2 Delivery O2 Flow Rate FiO2 07/16/17 12:38 97.6 73 17 119/58 94 07/13/17 06:29 Room Air 07/13/17 00:43 2.0 Intake and Output 07/15/17 07/15/17 07/16/17 15:00 23:00 07:00 Intake Total 120 ml 0 ml Balance 120 ml 0 ml Results Result Diagram: 07/16/17 0844 07/16/17 0844 Results 24 hrs Laboratory Tests Test 07/16/17 08:44 White Blood Count 5.8 # Red Blood Count 3.68 L Hemoglobin 13.8 Hematocrit 41.4 Mean Corpuscular Volume 112.5 H Mean Corpuscular Hemoglobin 37.5 H Mean Corpuscular Hemoglobin Concent 33.3 Red Cell Distribution Width 21.2 H Platelet Count 37 L Mean Platelet Volume 11.5 H Neutrophils % 59.3 Lymphocytes % 23.7 Monocytes % 12.3 H Eosinophils % 3.3 Basophils % 0.2 Nucleated Red Blood Cells % 0.5 H Neutrophils # 3.4 Lymphocytes # 1.4 Monocytes # 0.7 Eosinophils # 0.2 Basophils # 0.0 Nucleated Red Blood Cells # 0.0 Sodium Level 144 Potassium Level 4.2 Chloride Level 101 # Carbon Dioxide Level 37 H Anion Gap 10 # Blood Urea Nitrogen 72 H Creatinine 1.32 H Glucose Level 190 Hemoglobin A1c 4.8 Calcium Level 10.4 H Phosphorus Level 2.9 Magnesium Level 2.2 Medications Medications Current Medications Lactulose (Enulose) 20 gm Q4 PO Last administered on 07/16/17 10:17; Admin Dose 20 GM; Start 07/10/17 at 17:00 Enoxaparin Sodium (Lovenox) 30 mg DAILY SC Last administered on 07/16/17 10: 21; Admin Dose 30 MG; Start 07/11/17 at 09:00 Rifaximin (Xifaxan) 550 mg BID PO Last administered on 07/16/17 10:18; Admin Dose 550 MG; Start 07/11/17 at 11:00 Polyethylene Glycol (Miralax) 17 gm BID PO Last administered on 07/16/17 10: 17; Admin Dose 17 GM; Start 07/12/17 at 21:00 Vitamin A/Vitamin D (Vitamin A & D Oint) 1 applic BID TOP Last administered on 07/16/17 10:18; Admin Dose 1 APPLIC; Start 07/13/17 at 21:00 Multivitamins Therapeutic 1 tab 1 tab DAILY PO Last administered on 07/16/17 10:17; Admin Dose 1 TAB; Start 07/14/17 at 13:00 Potassium Chloride/Dextrose (D5W + KCl 20 Meq) 1,000 ml @ 100 mls/hr Q10H IV Last administered on 07/16/17 01:52; Admin Dose 100 MLS/HR; Start 07/15/17 at 13:30 Copies To: CC: BRANT BUSTILLOS MD, ANASTASIA NP Jul 16, 2017 16:28
[2017-07-16 18:22] LABS: ANA SCREEN POSITIVE (NEGATIVE)
[2017-07-17] VITALS (12 sets, daily range): BP systolic 108–137; BP diastolic 55–85; PULSE 69–90; RESP 17–20
[2017-07-17] MEDS: LACTULOSE 30ML CUP PO SCH ×6 (02:06→20:16)
[2017-07-17] MEDS ORDERED: LIDOCAINE 1% (MPF) 5 ML VIAL SC ONE (06:30)
[2017-07-17 08:17] LABS: ABNORMAL IP MESSAGE 1; BASOPHILS % 0.3 % (0.0-2.0); EOSINOPHILS % 0.2 % (0.0-7.0); HEMATOCRIT 44.6 % (37.0-47.0); HEMOGLOBIN 14.6 g/dl (12.0-16.0); LYMPHOCYTES # 0.9 10^3/ul (0.8-2.9); LYMPHOCYTES % 15.5 % (15.0-51.0); MEAN CORPUSCULAR HEMOGLOBIN 37.4 pg (29.0-33.0); MEAN CORPUSCULAR HGB CONC 32.7 g/dl (32.0-37.0); MEAN CORPUSCULAR VOLUME 114.4 fl (82.0-101.0); MEAN PLATELET VOLUME 10.8 fl (7.4-10.4); MONOCYTE # 0.5 10^3/ul (0.3-0.9); MONOCYTES % 7.9 % (0.0-11.0); NEUTROPHIL # 4.4 10^3/ul (1.6-7.5); NEUTROPHILS % 75.1 % (39.0-77.0); NUCLEATED RED BLOOD CELLS% 0.5 /100WBC (0.0-0.0); RED CELL DISTRIBUTION WIDTH 21.3 % (11.5-14.5); WHITE BLOOD COUNT 5.9 10^3/ul (4.8-10.8)
[2017-07-17 08:24] LABS: PLATELET COUNT 34 10^3/UL (140-415); POSITIVE DIFF @See below
[2017-07-17 08:38] LABS: CALCIUM 10.4 mg/dl (8.4-10.2); CREATININE 1.32 mg/dl (0.44-1.00); MAGNESIUM 2.3 mg/dl (1.7-2.5); POTASSIUM 4.8 mmol/L (3.5-5.1)
[2017-07-17] MEDS: MULTIVITAMINS THERAPEUTIC TAB PO SCH (08:39)
[2017-07-17] MEDS: RIFAXIMIN 550 MG TAB PO SCH ×2 (08:40→20:16)
[2017-07-17] MEDS: POLYETHYLENE GLYCOL 17 GM PACKET PO SCH ×2 (08:41→20:15)
[2017-07-17] MEDS: VITAMIN A & D 5 GM OINT PACKET TOP SCH ×2 (08:41→20:16)
[2017-07-17] MEDS: ENOXAPARIN 30 MG/0.3 ML SYG SC SCH (08:42)
[2017-07-17] MEDS: DEXTROSE 5% 1,000 ML IV SCH ×2 (10:30→17:54)
--- NOTE | 2017-07-17 15:16 | PN ---
Date/Time of Note Date/Time of Note DATE: 07/17/17 TIME: 15:11 Assessment/Plan VTE Prophylaxis VTE Prophylaxis Intervention: LMWH Lines/Catheters IV Catheter Type (from [facility]): Peripheral IV Urinary Cath still in place: No Assessment/Plan Chief Complaint/Hosp Course 1.Hepatic encephalopathy-patient still slightly confused -Continue lactulose and Rifaxamin - Hold any sedatives 2. Prerenal acute kidney injury TABBY with hypernatremia and hypokalemia secondary to lactulose use-improved with IV fluids -Continue D5W -Nephrology consultation appreciated 3. Cirrhosis likely secondary to GUARDADO - No ascites present for paracentesis - Hold diuretics 4. History of diabetes Patient not currently on any diabetic meds but sugars are elevated A1c 4.8 5. Small bowel obstruction likely secondary to hernia Surgical consultation appreciated, hernia was manually reduced and patient has had 2 bowel movements since yesterday NG tube reinserted and patient is now n.p.o., advancement of diet per surgery Prophylaxis: Lovenox Problems: Subjective 24 Hr Interval Summary Constitutional: no complaints Exam/Review of Systems Vital Signs Vitals Vital Signs Date Time Temp Pulse Resp B/P Pulse Ox O2 Delivery O2 Flow Rate FiO2 07/17/17 12:13 75 07/17/17 12:00 97.5 17 137/62 95 Intake and Output 07/16/17 07/16/17 07/17/17 15:00 23:00 07:00 Intake Total 1000 ml 300 ml Balance 1000 ml 300 ml Exam Constitutional: alert Respiratory: clear to auscultation Cardiovascular: regular rate and rhythm Gastrointestinal: soft, No distended Musculoskeletal: nl extremities to inspection Results Result Diagram: 07/17/1717 07/17/17 0717 Results 24 hrs Laboratory Tests Test 07/17/17 07:17 White Blood Count 5.9 Red Blood Count 3.90 L Hemoglobin 14.6 Hematocrit 44.6 Mean Corpuscular Volume 114.4 H Mean Corpuscular Hemoglobin 37.4 H Mean Corpuscular Hemoglobin Concent 32.7 Red Cell Distribution Width 21.3 H Platelet Count 34 L Mean Platelet Volume 10.8 H Neutrophils % 75.1 Lymphocytes % 15.5 Monocytes % 7.9 Eosinophils % 0.2 Basophils % 0.3 Nucleated Red Blood Cells % 0.5 H Neutrophils # 4.4 Lymphocytes # 0.9 Monocytes # 0.5 Eosinophils # 0.0 Basophils # 0.0 Nucleated Red Blood Cells # 0.0 Sodium Level 151 H Potassium Level 4.8 Chloride Level 111 H Carbon Dioxide Level 29 Anion Gap 16 Blood Urea Nitrogen 79 H Creatinine 1.32 H Glucose Level 155 Calcium Level 10.4 H Magnesium Level 2.3 Medications Medications Current Medications Lactulose (Enulose) 20 gm Q4 PO Last administered on 07/17/17 14:00; Admin Dose 20 GM; Start 07/10/17 at 17:00 Enoxaparin Sodium (Lovenox) 30 mg DAILY SC Last administered on 07/17/17 08: 42; Admin Dose 30 MG; Start 07/11/17 at 09:00 Rifaximin (Xifaxan) 550 mg BID PO Last administered on 07/17/17 08:40; Admin Dose 550 MG; Start 07/11/17 at 11:00 Polyethylene Glycol (Miralax) 17 gm BID PO Last administered on 07/17/17 08: 41; Admin Dose 17 GM; Start 07/12/17 at 21:00 Vitamin A/Vitamin D (Vitamin A & D Oint) 1 applic BID TOP Last administered on 07/17/17 08:41; Admin Dose 1 APPLIC; Start 07/13/17 at 21:00 Multivitamins Therapeutic 1 tab 1 tab DAILY PO Last administered on 07/17/17 08:39; Admin Dose 1 TAB; Start 07/14/17 at 13:00 Dextrose (D5W) 1,000 ml @ 125 mls/hr Q8H IV ; Start 07/17/17 at 10:30 LES SIMON Jul 17, 2017 15:16
--- NOTE | 2017-07-17 15:32 | PN ---
Date/Time of Note Date/Time of Note DATE: 07/17/17 TIME: 15:22 Assessment/Plan Lines/Catheters IV Catheter Type (from [facility]): Peripheral IV [place] in Place (from [facility]): No Assessment/Plan Chief Complaint/Hosp Course 1. SBO with dilated proximal small bowel loops and protrusion of small bowel loops into a right inguinal hernia containing loculated ascites; Dr. Lyon able to manually reduce hernia; pt with +bowel function -no emergent surgical intervention needed at this time; patient may follow with us outpatient for elective hernia repair after medical optimization -diet as tolerated 2. Hepatic encephalopathy: s/p rifaximin, lactulose; improving -medical management per gi 3. Liver cirrhosis with portal hypertension including mild scattered ascites, upper abdominal varices and mild splenomegaly; recent sbp -medical management and hepatology followup -fluid buildup management 4. Thrombocytopenia: likely 2/2 #3 -bleeding precautions -as above 5. Hyperbilirubinemia: likely 2/2 above -as above 6. Hypoalbuminemia: multifactorial -optimize nutrition as able - as above 7. Coagulopathy 2/2 #3 -as above 8. Diverticulosis without diverticulitis -monitor and outpatient follow up 9. Hypernatremia -judicious fluids Thank you. Patient seen and examined in collaboration with Dr. Song Lyon. Problems: Subjective 24 Hr Interval Summary Feels well. Continues to have +bowel function. No abdominal pain. No fevers, chills, sob, congested cough, cp, palpitations, keys, dizziness, n/v/d/dysuria. Exam/Review of Systems Vital Signs Vitals Vital Signs Date Time Temp Pulse Resp B/P Pulse Ox O2 Delivery O2 Flow Rate FiO2 07/17/17 12:13 75 07/17/17 12:00 97.5 17 137/62 95 Intake and Output 07/16/17 07/16/17 07/17/17 15:00 23:00 07:00 Intake Total 1000 ml 300 ml Balance 1000 ml 300 ml Exam Free Text/Dictation Constitutional: alert, oriented Psych: nl mood/affect Head: atraumatic, normocephalic Eyes: nl lids, nl sclera ENMT: mucosa pink and moist, nl nasal mucosa & septum Neck: non-tender, supple Respiratory: clear to auscultation, normal air movement Cardiovascular: nl pulses, regular rate and rhythm Gastrointestinal: other (no palpable hernia, rotund abdomen), soft, nontender Genitourinary - Female: nl adnexae, nl external genitalia Musculoskeletal: nl extremities to inspection Extremities: normal pulses Neurological: nl mental status, nl speech, nl strength Skin: rash or lesions Lymph: nl lymph nodes Results Result Diagram: 07/17/17 0717 07/17/17 0717 NICHOLAS WRIGHT NP Jul 17, 2017 15:32
--- NOTE | 2017-07-17 17:12 | PN ---
Date/Time of Note Date/Time of Note DATE: 07/17/17 TIME: 16:40 Assessment/Plan VTE Prophylaxis VTE Prophylaxis Intervention: SCD's Lines/Catheters IV [facility] Type (from [facility]): Peripheral IV Urinary Cath still in place: No Assessment/Plan Chief Complaint/Hosp Course Assessment: Small bowel obstruction due to inguinal hernia Hernia reduced by the surgeon Status post PICC line insertion today Decompensated liver cirrhosis Hepatic encephalopathy-improving Possible autoimmune hepatitis-pending results Plan: Keep NG tube for medications N.p.o. until swallow eval is complete Surgical repair of inguinal hernia is pending after hospital discharge DHEERAJ (positive), ASMA, AMA pending Treatment of possible autoimmune hepatitis should be postponed until after surgical hernia repair. Monitor H&H, transfuse for hemoglobin less than 7.5 Consultation performed in collaboration with Subjective: Patient is recovering from PICC line placement. According to the nurse patient has been confused today .NG tube in place draining dark brown secretions . She has multiple bowel movements per day . patient needs swallow evaluation before restarting the diet . Will continue monitoring for signs of encephalopathy. Nursing staff is aware of new orders. All laboratory data has been reviewed. Will continue close monitoring. PHYSICAL EXAMINATION: GENERAL: Well developed, well nourished, alert & oriented x 3, in no acute distress SKIN: No lesions, no stigmata chronic liver disease, no evidence of bleeding diathesis, left lower leg skin discoloration, multiple bruising LYMPHATIC: No palpable lymphadenopathy. HEAD: Normocephalic, atraumatic, no tenderness. EYES: Pupils equal reactive to light and accommodation, full extraocular movements, sclera clear, non-icteric, no discharge. EARS/NOSE AND THROAT: Ears normal, nose normal, oropharynx normal, oral membranes well hydrated without lesions. NG tube is in place NECK: Supple, no masses, thyroid normal, JVP within normal limits, carotids normal without bruits. CHEST: Inspection within normal limits. CARDIOVASCULAR: Heart: Regular rate and rhythm, no murmurs, gallops or rubs. Peripheral pulses present within normal limits, no cyanosis, clubbing or edemas. No pulsatile abdominal mass RESPIRATORY: Lungs clear to auscultation and percussion, no wheezing, no rubs GASTROINTESTINAL AND LIVER: Abdomen: Soft, right lower quadrant tenderness, non- distended, no hernias, no masses, no organomegaly, ascites, no guarding, no rebound tenderness, normoactive bowel sounds. Rectal: Deferred. GENITOURINARY: Female genitalia within normal limits. EXTREMITIES: No cyanosis, clubbing or edema. Problems: Exam/Review of Systems Vital Signs Vitals Vital Signs Date Time Temp Pulse Resp B/P Pulse Ox O2 Delivery O2 Flow Rate FiO2 07/17/17 16:07 77 07/17/17 16:05 97.8 18 131/85 94 Intake and Output 07/16/17 07/16/17 07/17/17 15:00 23:00 07:00 Intake Total 1000 ml 300 ml Balance 1000 ml 300 ml Results Result Diagram: 07/17/1771607/17/17716 Results 24 hrs Laboratory Tests Test 07/17/17 07:17 White Blood Count 5.9 Red Blood Count 3.90 L Hemoglobin 14.6 Hematocrit 44.6 Mean Corpuscular Volume 114.4 H Mean Corpuscular Hemoglobin 37.4 H Mean Corpuscular Hemoglobin Concent 32.7 Red Cell Distribution Width 21.3 H Platelet Count 34 L Mean Platelet Volume 10.8 H Neutrophils % 75.1 Lymphocytes % 15.5 Monocytes % 7.9 Eosinophils % 0.2 Basophils % 0.3 Nucleated Red Blood Cells % 0.5 H Neutrophils # 4.4 Lymphocytes # 0.9 Monocytes # 0.5 Eosinophils # 0.0 Basophils # 0.0 Nucleated Red Blood Cells # 0.0 Sodium Level 151 H Potassium Level 4.8 Chloride Level 111 H Carbon Dioxide Level 29 Anion Gap 16 Blood Urea Nitrogen 79 H Creatinine 1.32 H Glucose Level 155 Calcium Level 10.4 H Magnesium Level 2.3 Medications Medications Current Medications Lactulose (Enulose) 20 gm Q4 PO Last administered on 07/17/17 14:00; Admin Dose 20 GM; Start 07/10/17 at 17:00 Enoxaparin Sodium (Lovenox) 30 mg DAILY SC Last administered on 07/17/17 08: 42; Admin Dose 30 MG; Start 07/11/17 at 09:00 Rifaximin (Xifaxan) 550 mg BID PO Last administered on 07/17/17 08:40; Admin Dose 550 MG; Start 07/11/17 at 11:00 Polyethylene Glycol (Miralax) 17 gm BID PO Last administered on 07/17/17 08: 41; Admin Dose 17 GM; Start 07/12/17 at 21:00 Vitamin A/Vitamin D (Vitamin A & D Oint) 1 applic BID TOP Last administered on 07/17/17 08:41; Admin Dose 1 APPLIC; Start 07/13/17 at 21:00 Multivitamins Therapeutic 1 tab 1 tab DAILY PO Last administered on 07/17/17 08:39; Admin Dose 1 TAB; Start 07/14/17 at 13:00 Dextrose (D5W) 1,000 ml @ 125 mls/hr Q8H IV ; Start 07/17/17 at 10:30 Copies To: CC: BRANT BUSTILLOS MD, ANASTASIA NP Jul 17, 2017 17:12
--- NOTE | 2017-07-17 17:21 | RADRPT ---
PROCEDURE: Ultrasound guidance for placement of needle in left upper extremity vein. CLINICAL INDICATION: Venous access. TECHNIQUE: Limited sonography of the left upper extremity was performed. Ultrasound images were recorded and s tored in the patient's medical record. COMPARISON: None. FINDINGS: The ultrasound images demonstrate a patent left upper extremity vein. The PICC line was inserted by the PICC line nurse. IMPRESSION: 1. Ultrasound guidance for a needle placement in a left upper extremity vein. 2. The left upper extremity vein is patent. RPTAT: QQ .Oz Naranjo MD, MD Date Time Electronically viewed and signed by .Oz Naranjo MD, MD on 07/17/2017 17:21 .R/
--- NOTE | 2017-07-17 17:23 | RADRPT ---
PROCEDURE: XR Chest. CLINICAL INDICATION: Check PICC line position. TECHNIQUE: Single frontal view. COMPARISON: 07/16/2017. FINDINGS: There is a left arm PICC line with the tip in the lower superior vena cava. The nasogastric tube ti p is in the stomach The heart size is normal. There is calcification in the aorta consistent with atherosclerosis. There is no pleural effusion. There is no pneumothorax. IMPRESSION: 1. Left arm PICC line tip in satisfactory position. 2. Nasogastric tube tip in the stomach. 3. Atherosclerosis. 4. Otherwise unremarkable chest radiograph. RPTAT: QQ .Oz Naranjo MD, MD Date Time Electronically viewed and signed by .Oz Naranjo MD, MD on 07/17/2017 17:22 .R/
[2017-07-17 19:41] LABS: MITOCHONDRIAL TB NEGATIVE (NEGATIVE)
[2017-07-17] MEDS ORDERED: SOD CHLORIDE 0.9% 100 ML ONE (20:02)
--- NOTE | 2017-07-17 20:07 | CONS ---
DATE OF ADMISSION: 07/10/2017 DATE OF CONSULTATION: NEPHROLOGY CONSULTATION REASON FOR CONSULTATION: Acute kidney injury, hypernatremia. PHYSICIAN REQUESTING CONSULT: Dr. Srinivasan HISTORY OF PRESENT ILLNESS: This is a 72-year-old female with a past medical history of decompensat ed cirrhosis with known ascites varices, history of CHF, history of anemia, who presents to [facility] for encephalopathy. The patient, upon arrival, was noted to have hepatic encep halopathy. The patient had an NG tube placed and was given lactulose, rifaximin. The patient also noted to have a history of SBP, was placed on antibiotic therapy. The patient had no significant as cites on ultrasound. The patient, during the hospital course, had improvement in mental status. Ov er the ____ mental status, but still remains weak and lethargic. In terms of the patient's renal history, the patient had a creatinine of 0.83 mg/dL on admission. D uring the course of the last 48 hours, the patient's creatinine has increased and fluctuated between 1.1 to 1.5 mg/dL. The patient was also noted to be hypernatremic with sodium levels of 151. There have been no reports of any hemoptysis, hematemesis, hematochezia. PAST MEDICAL HISTORY: As stated above, history of cirrhosis, history of CHF. PAST SURGICAL HISTORY: None. ALLERGIES: NO KNOWN DRUG ALLERGIES. FAMILY HISTORY: Noncontributory. SOCIAL HISTORY: Does not drink, smoke or do drugs. MEDICATIONS: The patient's medications have been reviewed. REVIEW OF SYSTEMS: A 14-point review of systems conducted, pertinent positives stated in HPI, other nolan negative. PHYSICAL EXAMINATION: VITAL SIGNS: Blood pressure is 137/62, respirations 17, pulse 72, temperature 97.5. HEENT: Head is normocephalic. NECK: Supple. HEART: Regular rate. LUNGS: Show diminished breath sounds at the base. ABDOMEN: Soft, mild tenderness to palpation. No rebound or guarding. EXTREMITIES: Negative for clubbing, cyanosis. No edema. DERMATOLOGIC: No rashes. MUSCULOSKELETAL: No joint effusions. NEUROLOGIC: Limited exam due to lack of patient cooperation. LABORATORY DATA: Shows sodium 151, potassium 4.8, , BUN 79, creatinine 1.22, calcium is 10.4. White count 5.9, hemoglobin 14.6 and platelet count is 34. ASSESSMENT AND PLAN: This is a 72-year-old female who presents with: 1. Nonoliguric acute kidney injury with previous baseline creatinine 0.8 mg/dL. Etiology of acute kidney injury is likely hemodynamics. The possibility of tubular injury is a consideration. Lower suspicion for acute glomerulonephritis and vasculitis given patient's clinical presentation. The di agnosis of hepatorenal syndrome cannot be made at this time as it is a diagnosis of exclusion, but w ill be considered in the setting of acute kidney injury and cirrhosis. Plan at this point is to do a full evaluation. We will repeat a UA with microanalysis. We will check urine electrolytes. We w ill check a renal ultrasound to evaluate renal parenchyma and rule out obstruction, although suspici on is low. We will continue hypertonic fluids at this time. We will also start the patient on albu min of 25% of 100 mL q.8 hours. Monitor renal function closely. 2. Hypernatremia. The patient has a free water deficit of approximately 3 liters. We will increas e D5W to 125 mL an hour. We will monitor sodium levels closely. 3. Mineral bone disorder. Monitor calcium and phosphorus levels. The patient is mildly hypocalcem ic. 4. Cirrhosis, decompensated with hepatic encephalopathy. Continue lactulose and rifaximin. 5. History of diabetes. 6. Small-bowel obstruction. The patient's NG tube is in place, currently n.p.o. Continue to monit or. Follow up a small-bowel follow through. Thank you, Dr. Srinivasan, for this interesting consult. It will be a pleasure to follow patient with you throughout the hospital course. Dictated By: DRAGAN HENDERSON DO NR/NTS Conf#: [id number] DID#: [id number] CC: YEMI BRADSHAW MD; LES SRINIVASAN MD;*EndCC*
[2017-07-17 20:28] LABS: SMOOTH MUSCLE AB TITER 1:20 titer (<1:20)
--- NOTE | 2017-07-17 21:12 | RADRPT ---
PROCEDURE: US Renal CLINICAL INDICATION: Acute renal insufficiency. TECHNIQUE: Multiple sonographic images of the kidneys and bladder were obtained. Evaluation of th e kidneys and bladder was performed as well with calix scale and color and Doppler evaluation using a curved array transducer. The images were reviewed on a high-resolution PACS workstation. COMPARISON: No prior studies are available for comparison. FINDINGS: The right kidney measures 10.1 cm. The left kidney measures 10.5 cm. There is normal echogenicity within the parenchyma of the kidneys bilaterally. There is no mass, calculus, or obstructive uropathy. No perinephric fluid collection is seen. Evaluation of the urinary bladder is unremarkable. IMPRESSION: 1. Unremarkable renal ultrasound. RPTAT: [facility] Physician Genevieve Date Time Electronically viewed and signed by Physician Genevieve on 07/17/2017 21:12 /
[2017-07-17 22:37] LABS: CALCIUM 10.2 mg/dl (8.4-10.2); CREATININE 1.2 mg/dl (0.44-1.00); POTASSIUM 3.4 mmol/L (3.5-5.1)
[2017-07-17] MEDS ORDERED: POTASSIUM CHLORIDE (SR) 20 MEQ TAB PO STA (23:08)
[2017-07-18] VITALS (12 sets, daily range): BP systolic 107–126; BP diastolic 55–67; PULSE 60–80; RESP 17–20
[2017-07-18] MEDS: LACTULOSE 30ML CUP PO SCH ×6 (00:38→20:35)
[2017-07-18] MEDS: DEXTROSE 5% 1,000 ML IV SCH ×2 (02:07→12:14)
[2017-07-18] MEDS: RIFAXIMIN 550 MG TAB PO SCH ×2 (08:55→20:34)
[2017-07-18] MEDS: POLYETHYLENE GLYCOL 17 GM PACKET PO SCH ×2 (08:55→20:34)
[2017-07-18] MEDS: MULTIVITAMINS THERAPEUTIC TAB PO SCH (08:55)
[2017-07-18] MEDS: VITAMIN A & D 5 GM OINT PACKET TOP SCH ×2 (08:56→20:34)
[2017-07-18] MEDS: ENOXAPARIN 30 MG/0.3 ML SYG SC SCH (08:57)
[2017-07-18 09:09] LABS: ABNORMAL IP MESSAGE 1; BASOPHILS % 0.2 % (0.0-2.0); EOSINOPHILS # 0.1 10^3/ul (0.0-0.5); EOSINOPHILS % 1.9 % (0.0-7.0); HEMOGLOBIN 12.4 g/dl (12.0-16.0); LYMPHOCYTES % 19.6 % (15.0-51.0); MEAN CORPUSCULAR HEMOGLOBIN 37.9 pg (29.0-33.0); MEAN CORPUSCULAR HGB CONC 33.5 g/dl (32.0-37.0); MEAN CORPUSCULAR VOLUME 113.1 fl (82.0-101.0); MONOCYTE # 0.6 10^3/ul (0.3-0.9); MONOCYTES % 11.2 % (0.0-11.0); NEUTROPHIL # 3.5 10^3/ul (1.6-7.5); NEUTROPHILS % 66.1 % (39.0-77.0); NUCLEATED RED BLOOD CELLS% 0.6 /100WBC (0.0-0.0); RED BLOOD COUNT 3.27 10^6/ul (4.20-5.40); RED CELL DISTRIBUTION WIDTH 21.6 % (11.5-14.5); WHITE BLOOD COUNT 5.3 10^3/ul (4.8-10.8)
[2017-07-18 09:13] LABS: POSITIVE DIFF @See below
[2017-07-18 09:14] LABS: PLATELET COUNT 32 10^3/UL (140-415)
[2017-07-18 09:33] LABS: CALCIUM 9.9 mg/dl (8.4-10.2); CREATININE 1.06 mg/dl (0.44-1.00); MAGNESIUM 2.2 mg/dl (1.7-2.5); PHOSPHORUS 2.4 mg/dl (2.5-4.9); POTASSIUM 3.9 mmol/L (3.5-5.1)
--- NOTE | 2017-07-18 10:47 | PN ---
DATE: 07/18/2017 SUBJECTIVE: The patient is stable. No events overnight. No fevers, chills, nausea, vomiting, shor tness of breath. OBJECTIVE: VITAL SIGNS: Blood pressure is 114/56, respiration 18, pulse 64, temperature 97.8. HEENT: Head is normocephalic. NECK: Supple. HEART: Regular rate. LUNGS: Show diminished breath sounds at base. ABDOMEN: Soft, nontender to palpation. No rebound or guarding. EXTREMITIES: Negative for clubbing, cyanosis, no edema. DERMATOLOGIC: No rashes. MUSCULOSKELETAL: No joint effusions. NEUROLOGIC: No change in exam. MEDICATIONS: The patient's medications are reviewed. LABORATORY DATA: Currently pending. ASSESSMENT AND PLAN: 1. Nonoliguric acute kidney injury with previous baseline creatinine 0.8 mg/dL. Etiology is likely secondary to hemodynamics. The possibility of acute tubular necrosis is a consideration. The evy ent's renal function has been improving with supportive care. Renal ultrasound shows no evidence of obstruction. At this point, would continue current treatment plan, supportive care and renally dos e all meds. 2. Hypernatremia. Etiology is likely due to insensible losses. The patient is currently toleratin g p.o., we will encourage free water intake. Continue D5 water, decrease rate to 50 mL an hour and follow serial sodium levels closely. 2. Mineral bone disorder. Monitor calcium and phosphorus levels. 3. Cirrhosis, currently decompensated. 4. Encephalopathy. Continue lactulose and rifaximin. 5. History of diabetes. 6. Small-bowel obstruction. The patient is status post NG tube. Continue to monitor. Small bowel follow through is pending. Dictated By: DRAGAN PAYNE/SHEKHAR Conf#: [id number] DID#: [id number] CC: YEMI BRADSHAW MD;*EndCC*
--- NOTE | 2017-07-18 12:34 | PN ---
Date/Time of Note Date/Time of Note DATE: 07/18/17 TIME: 12:29 Assessment/Plan VTE Prophylaxis VTE Prophylaxis Intervention: LMWH Lines/Catheters Urinary Cath still in place: No Assessment/Plan Chief Complaint/Hosp Course 1.Hepatic encephalopathy-patient still slightly confused -Continue lactulose and Rifaxamin - Hold any sedatives 2. Prerenal acute kidney injury TABBY with hypernatremia and hypokalemia secondary to lactulose use-improved with IV fluids -Continue D5W -Nephrology consultation appreciated 3. 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 History of diabetes Patient not currently on any diabetic meds but sugars are elevated A1c 4.8 5. Small bowel obstruction secondary to right inguinal hernia-resolved Surgical consultation appreciated, hernia was manually reduced and patient has having multiple bowel movements Patient now tolerating p.o. diet, no plans for hernia repair at this time, can be done electively as an outpatient after being medically optimized NG tube has been removed Prophylaxis: Lovenox Problems: Subjective 24 Hr Interval Summary Constitutional: disoriented Exam/Review of Systems Vital Signs Vitals Vital Signs Date Time Temp Pulse Resp B/P Pulse Ox O2 Delivery O2 Flow Rate FiO2 07/18/17 12:05 65 07/18/17 11:48 98.4 17 121/59 95 Intake and Output 07/17/17 07/17/17 07/18/17 14:59 22:59 06:59 Intake Total 1500 ml Balance 1500 ml Exam Constitutional: alert Psych: confusion Respiratory: clear to auscultation Cardiovascular: regular rate and rhythm Gastrointestinal: soft, No distended Musculoskeletal: nl extremities to inspection Results Result Diagram: 07/18/17 0800 07/18/17 0800 Results 24 hrs Laboratory Tests Test 07/17/17 21:40 07/18/17 08:00 Sodium Level 150 H 150 H Potassium Level 3.4 L 3.9 Chloride Level 109 110 Carbon Dioxide Level 30 32 H Anion Gap 14 12 Blood Urea Nitrogen 79 H 69 H Creatinine 1.20 H 1.06 H Glucose Level 269 #H 199 Calcium Level 10.2 9.9 White Blood Count 5.3 Red Blood Count 3.27 L Hemoglobin 12.4 Hematocrit 37.0 Mean Corpuscular Volume 113.1 H Mean Corpuscular Hemoglobin 37.9 H Mean Corpuscular Hemoglobin Concent 33.5 Red Cell Distribution Width 21.6 H Platelet Count 32 L Mean Platelet Volume 12.0 H Neutrophils % 66.1 Lymphocytes % 19.6 Monocytes % 11.2 H Eosinophils % 1.9 Basophils % 0.2 Nucleated Red Blood Cells % 0.6 H Neutrophils # 3.5 Lymphocytes # 1.0 Monocytes # 0.6 Eosinophils # 0.1 Basophils # 0.0 Nucleated Red Blood Cells # 0.0 Phosphorus Level 2.4 L Magnesium Level 2.2 Medications Medications Current Medications Lactulose (Enulose) 20 gm Q4 PO Last administered on 07/18/17 12:12; Admin Dose 20 GM; Start 07/10/17 at 17:00 Enoxaparin Sodium (Lovenox) 30 mg DAILY SC Last administered on 07/18/17 08: 57; Admin Dose 30 MG; Start 07/11/17 at 09:00 Rifaximin (Xifaxan) 550 mg BID PO Last administered on 07/18/17 08:55; Admin Dose 550 MG; Start 07/11/17 at 11:00 Polyethylene Glycol (Miralax) 17 gm BID PO Last administered on 07/18/17 08: 55; Admin Dose 17 GM; Start 07/12/17 at 21:00 Vitamin A/Vitamin D (Vitamin A & D Oint) 1 applic BID TOP Last administered on 07/18/17 08:56; Admin Dose 1 APPLIC; Start 07/13/17 at 21:00 Multivitamins Therapeutic 1 tab 1 tab DAILY PO Last administered on 07/18/17 08:55; Admin Dose 1 TAB; Start 07/14/17 at 13:00 Dextrose (D5W) 1,000 ml @ 50 mls/hr Q20H IV Last administered on 07/18/17 12 :14; Admin Dose 50 MLS/HR; Start 07/17/17 at 10:30 IV Flush (NS 10 ml) 10 ml PRN PRN IV IV PROTOCOL; Start 07/17/17 at 18:00 LES SIMON Jul 18, 2017 12:34
--- NOTE | 2017-07-18 14:19 | PN ---
Date/Time of Note Date/Time of Note DATE: 07/18/17 TIME: 14:16 Assessment/Plan Lines/Catheters [facility] in Place (from [facility]): No Assessment/Plan Chief Complaint/Hosp Course 1. SBO with dilated proximal small bowel loops and protrusion of small bowel loops into a right inguinal hernia containing loculated ascites; Dr. Lyon able to manually reduce hernia; pt with +bowel function -no emergent surgical intervention needed at this time; patient may follow with us outpatient for elective hernia repair after medical optimization -diet as tolerated 2. Hepatic encephalopathy: s/p rifaximin, lactulose; improving -medical management per gi 3. Liver cirrhosis with portal hypertension including mild scattered ascites, upper abdominal varices and mild splenomegaly; recent sbp -medical management and hepatology followup -fluid buildup management 4. Thrombocytopenia: likely 2/2 #3 -bleeding precautions -as above 5. Hyperbilirubinemia: likely 2/2 above -as above 6. Hypoalbuminemia: multifactorial -optimize nutrition as able - as above 7. Coagulopathy 2/2 #3 -as above 8. Diverticulosis without diverticulitis -monitor and outpatient follow up 9. Hypernatremia: improving -judicious fluids per renal 10. Nonoliguric joaquin: -judicious fluids -limit nephrotoxic meds -per renal Thank you. Patient seen and examined in collaboration with Dr. Song Lyon. Problems: Subjective 24 Hr Interval Summary Feels well. +bowel function. No abdominal pain. Tolerating diet. S/p picc line placement. No fevers, chills, sob, congested cough, cp, palpitations, keys, dizziness, n/v/d/dysuria. Exam/Review of Systems Vital Signs Vitals Vital Signs Date Time Temp Pulse Resp B/P Pulse Ox O2 Delivery O2 Flow Rate FiO2 07/18/17 12:05 65 07/18/17 11:48 98.4 17 121/59 95 Intake and Output 07/17/17 07/17/17 07/18/17 15:00 23:00 07:00 Intake Total 1500 ml Balance 1500 ml Exam Free Text/Dictation Constitutional: alert, oriented Psych: nl mood/affect Head: atraumatic, normocephalic Eyes: nl lids, nl sclera ENMT: mucosa pink and moist, nl nasal mucosa & septum Neck: non-tender, supple Respiratory: clear to auscultation, normal air movement Cardiovascular: nl pulses, regular rate and rhythm Gastrointestinal: other (no palpable hernia, rotund abdomen), soft, nontender Genitourinary - Female: nl adnexae, nl external genitalia Musculoskeletal: nl extremities to inspection Extremities: normal pulses Neurological: nl mental status, nl speech, nl strength Skin: rash or lesions Lymph: nl lymph nodes Results Result Diagram: 07/18/17 0800 07/18/17 0800 NICHOLAS WRIGHT NP Jul 18, 2017 14:19
--- NOTE | 2017-07-18 15:39 | PN ---
Date/Time of Note Date/Time of Note DATE: 07/18/17 TIME: 15:24 Assessment/Plan VTE Prophylaxis VTE Prophylaxis Intervention: SCD's Lines/Catheters Urinary Cath still in place: No Assessment/Plan Chief Complaint/Hosp Course Assessment: Small bowel obstruction due to inguinal hernia Hernia was reduced by the surgeon Needs surgical repair in the future Status post PICC line insertion for hydration 07/17/17 Decompensated liver cirrhosis Hepatic encephalopathy-still confused Autoimmune hepatitis-pending IgG Acute kidney injury- cr is trending down 1.06 today Plan: NG tube was dc'd Regular diet Surgical repair of inguinal hernia is pending after hospital discharge DHEERAJ and ASMA (positive), AMA negative, IgG pending Might need steroids if IgG level is high, will not initiate until after surgery for hernia repair. Monitor H&H, transfuse for hemoglobin less than 7.5 Consultation performed in collaboration with Subjective: Patient is still mildly confused. NG tube has been DC'd by the brother. Family has been feeding patient regular diet. Patient is tolerating diet well. Voiding and having bowel movements. From GI standpoint patient is stable for outpatient management. IgG titers pending, if show high immunologic activity steroids might be indicated. Will hold off on treatment until after the surgery. Patient needs inguinal hernia repair in the nearest future. Plan of treatment discussed with the family and nursing staff. All laboratory values have been reviewed. PHYSICAL EXAMINATION: GENERAL: Well developed, well nourished, confused, in no acute distress SKIN: No lesions, no stigmata chronic liver disease, no evidence of bleeding diathesis, left lower leg skin discoloration, multiple bruising LYMPHATIC: No palpable lymphadenopathy. HEAD: Normocephalic, atraumatic, no tenderness. EYES: Pupils equal reactive to light and accommodation, full extraocular movements, sclera clear, non-icteric, no discharge. EARS/NOSE AND THROAT: Ears normal, nose normal, oropharynx normal, oral membranes well hydrated without lesions. NG tube is in place NECK: Supple, no masses, thyroid normal, JVP within normal limits, carotids normal without bruits. CHEST: Inspection within normal limits. CARDIOVASCULAR: Heart: Regular rate and rhythm, no murmurs, gallops or rubs. Peripheral pulses present within normal limits, no cyanosis, clubbing or edemas. No pulsatile abdominal mass RESPIRATORY: Lungs clear to auscultation and percussion, no wheezing, no rubs GASTROINTESTINAL AND LIVER: Abdomen: Soft, supraumbilical tenderness with palpable hernia, non-distended, no masses, no organomegaly, ascites, no guarding, no rebound tenderness, normoactive bowel sounds. Rectal: Deferred. GENITOURINARY: Female genitalia within normal limits. EXTREMITIES: No cyanosis, clubbing or edema. Problems: Exam/Review of Systems Vital Signs Vitals Vital Signs Date Time Temp Pulse Resp B/P Pulse Ox O2 Delivery O2 Flow Rate FiO2 07/18/17 12:05 65 07/18/17 11:48 98.4 17 121/59 95 Intake and Output 07/17/17 07/17/17 07/18/17 15:00 23:00 07:00 Intake Total 1500 ml Balance 1500 ml Results Result Diagram: 07/18/17 0800 07/18/17 0800 Results 24 hrs Laboratory Tests Test 07/17/17 21:40 07/18/17 08:00 Sodium Level 150 H 150 H Potassium Level 3.4 L 3.9 Chloride Level 109 110 Carbon Dioxide Level 30 32 H Anion Gap 14 12 Blood Urea Nitrogen 79 H 69 H Creatinine 1.20 H 1.06 H Glucose Level 269 #H 199 Calcium Level 10.2 9.9 White Blood Count 5.3 Red Blood Count 3.27 L Hemoglobin 12.4 Hematocrit 37.0 Mean Corpuscular Volume 113.1 H Mean Corpuscular Hemoglobin 37.9 H Mean Corpuscular Hemoglobin Concent 33.5 Red Cell Distribution Width 21.6 H Platelet Count 32 L Mean Platelet Volume 12.0 H Neutrophils % 66.1 Lymphocytes % 19.6 Monocytes % 11.2 H Eosinophils % 1.9 Basophils % 0.2 Nucleated Red Blood Cells % 0.6 H Neutrophils # 3.5 Lymphocytes # 1.0 Monocytes # 0.6 Eosinophils # 0.1 Basophils # 0.0 Nucleated Red Blood Cells # 0.0 Phosphorus Level 2.4 L Magnesium Level 2.2 Medications Medications Current Medications Lactulose (Enulose) 20 gm Q4 PO Last administered on 07/18/17 12:12; Admin Dose 20 GM; Start 07/10/17 at 17:00 Enoxaparin Sodium (Lovenox) 30 mg DAILY SC Last administered on 07/18/17 08: 57; Admin Dose 30 MG; Start 07/11/17 at 09:00 Rifaximin (Xifaxan) 550 mg BID PO Last administered on 07/18/17 08:55; Admin Dose 550 MG; Start 07/11/17 at 11:00 Polyethylene Glycol (Miralax) 17 gm BID PO Last administered on 07/18/17 08: 55; Admin Dose 17 GM; Start 07/12/17 at 21:00 Vitamin A/Vitamin D (Vitamin A & D Oint) 1 applic BID TOP Last administered on 07/18/17 08:56; Admin Dose 1 APPLIC; Start 07/13/17 at 21:00 Multivitamins Therapeutic 1 tab 1 tab DAILY PO Last administered on 07/18/17 08:55; Admin Dose 1 TAB; Start 07/14/17 at 13:00 Dextrose (D5W) 1,000 ml @ 50 mls/hr Q20H IV Last administered on 07/18/17 12 :14; Admin Dose 50 MLS/HR; Start 07/17/17 at 10:30 IV Flush (NS 10 ml) 10 ml PRN PRN IV IV PROTOCOL; Start 07/17/17 at 18:00 Copies To: CC: BRANT BUSTILLOS MD, ANASTASIA NP Jul 18, 2017 15:34
[2017-07-19] VITALS (11 sets, daily range): BP systolic 103–118; BP diastolic 55–69; PULSE 67–96; RESP 18–19
[2017-07-19] MEDS: LACTULOSE 30ML CUP PO SCH ×6 (01:33→21:04)
[2017-07-19] MEDS: DEXTROSE 5% 1,000 ML IV SCH ×2 (08:49→12:41)
[2017-07-19] MEDS: RIFAXIMIN 550 MG TAB PO SCH ×2 (09:25→21:04)
[2017-07-19] MEDS: POLYETHYLENE GLYCOL 17 GM PACKET PO SCH ×2 (09:26→21:03)
[2017-07-19] MEDS: MULTIVITAMINS THERAPEUTIC TAB PO SCH (09:26)
[2017-07-19] MEDS: VITAMIN A & D 5 GM OINT PACKET TOP SCH ×2 (09:26→21:04)
[2017-07-19] MEDS: ENOXAPARIN 30 MG/0.3 ML SYG SC SCH (09:33)
[2017-07-19 10:43] LABS: ABNORMAL IP MESSAGE 1; BASOPHILS % 0.2 % (0.0-2.0); EOSINOPHILS # 0.1 10^3/ul (0.0-0.5); EOSINOPHILS % 2.3 % (0.0-7.0); HEMATOCRIT 35.4 % (37.0-47.0); HEMOGLOBIN 11.8 g/dl (12.0-16.0); LYMPHOCYTES # 0.5 10^3/ul (0.8-2.9); LYMPHOCYTES % 12.3 % (15.0-51.0); MEAN CORPUSCULAR HEMOGLOBIN 38.6 pg (29.0-33.0); MEAN CORPUSCULAR HGB CONC 33.3 g/dl (32.0-37.0); MEAN CORPUSCULAR VOLUME 115.7 fl (82.0-101.0); MEAN PLATELET VOLUME 12.6 fl (7.4-10.4); MONOCYTE # 0.4 10^3/ul (0.3-0.9); MONOCYTES % 9.6 % (0.0-11.0); NEUTROPHIL # 3.3 10^3/ul (1.6-7.5); NEUTROPHILS % 74.5 % (39.0-77.0); RED BLOOD COUNT 3.06 10^6/ul (4.20-5.40); RED CELL DISTRIBUTION WIDTH 21.8 % (11.5-14.5); WHITE BLOOD COUNT 4.4 10^3/ul (4.8-10.8)
[2017-07-19 10:49] LABS: PLATELET COUNT 27 10^3/UL (140-415); POSITIVE DIFF @See below
[2017-07-19 11:07] LABS: CALCIUM 9.7 mg/dl (8.4-10.2); CREATININE 0.85 mg/dl (0.44-1.00); MAGNESIUM 1.9 mg/dl (1.7-2.5); PHOSPHORUS 2.6 mg/dl (2.5-4.9); POTASSIUM 3.6 mmol/L (3.5-5.1)
[2017-07-19] MEDS ORDERED: ALTEPLASE (CATHFLO) 2 MG INJ CATHETER ONE (12:00)
--- NOTE | 2017-07-19 13:12 | PN ---
DATE: 07/19/2017 SUBJECTIVE: The patient is stable. No events overnight. No fevers, chills, nausea, vomiting. The patient is currently tolerating p.o. OBJECTIVE: VITAL SIGNS: Blood pressure is 109/65, respiration 18, pulse 78, temperature 98.0. HEENT: Head is normocephalic. NECK: Supple. HEART: Regular rate. LUNGS: Show diminished breath sounds at the base. ABDOMEN: Soft, nontender to palpation without rebound or guarding. EXTREMITIES: Negative for clubbing, cyanosis. No edema. DERMATOLOGIC: No rashes. MUSCULOSKELETAL: No joint effusions. NEUROLOGIC: No change in exam. MEDICATIONS: The patient's medications have been reviewed. LABORATORY DATA: From 07/18/2017 showed sodium 150, BUN 69, creatinine 1.06, phosphorous is 2.4. ASSESSMENT AND PLAN: 1. Nonoliguric acute kidney injury with previous baseline creatinine 0.8 mg/dL. Etiology of acute kidney injury is likely secondary to hemodynamics. The patient's renal function has slowly been imp roving with supportive care and IV hydration. At this point, continue current treatment plan, suppo rtive care and renally dose all medications. 2. Hyponatremia. Etiology is likely from insensible losses. Low suspicion for diabetes insipidus. Although urine osmolarity and urine sodium are pending. At this point, continue D5 water. Contin ue to encourage p.o. free water intake. Monitor serial sodium levels. 3. Mineral bone disorder. Monitor calcium and phosphorus levels, will replete phosphate levels as needed. 4. Encephalopathy, improving. Continue current medical management. 5. History of diabetes. Continue to monitor. 6. Small-bowel obstruction, improved. The patient's NG tube was removed, currently tolerating p.o. 7. Cirrhosis, decompensated. Continue medical management. Patient may have an autoimmune etiology . Continue to monitor. Follow up with gastroenterology. Dictated By: DRAGAN PAYNE/SHEKHAR Conf#: [id number] DID#: [id number]
--- NOTE | 2017-07-19 14:16 | PN ---
Date/Time of Note Date/Time of Note DATE: 07/19/17 TIME: 14:11 Assessment/Plan Lines/Catheters IV Catheter Type (from [facility]): PICC Line [facility] in Place (from [facility]): No Assessment/Plan Chief Complaint/Hosp Course 1. SBO with dilated proximal small bowel loops and protrusion of small bowel loops into a right inguinal hernia containing loculated ascites; Dr. Lyon able to manually reduce hernia; pt with +bowel function -no emergent surgical intervention needed at this time; patient may follow with us outpatient for elective hernia repair after medical optimization 2. Hepatic encephalopathy: s/p rifaximin, lactulose; improving -medical management per gi 3. Liver cirrhosis with portal hypertension including mild scattered ascites, upper abdominal varices and mild splenomegaly; recent sbp -medical management and hepatology followup -fluid buildup management 4. Thrombocytopenia: likely 2/2 #3 -bleeding precautions -as above 5. Hyperbilirubinemia: likely 2/2 above -as above 6. Hypoalbuminemia: multifactorial -optimize nutrition as able - as above 7. Coagulopathy 2/2 #3 -as above 8. Diverticulosis without diverticulitis -monitor and outpatient follow up 9. Hypernatremia: continuing to improve -judicious fluids per renal 10. Nonoliguric joaquin:cr normalized -judicious fluids -limit nephrotoxic meds -per renal Thank you. Patient seen and examined in collaboration with Dr. Song Lyon. Problems: Subjective 24 Hr Interval Summary Hyponatremia improving. Continues to have + bowel function. Tolerating diet. No fevers, chills, sob, congested cough, cp, palpitations, keys, dizziness, n/v/d/ dysuria. Exam/Review of Systems Vital Signs Vitals Vital Signs Date Time Temp Pulse Resp B/P Pulse Ox O2 Delivery O2 Flow Rate FiO2 07/19/17 12:32 98.0 73 18 103/55 98 Intake and Output 07/18/17 07/18/17 07/19/17 15:00 23:00 07:00 Intake Total 1250 ml 120 ml Balance 1250 ml 120 ml Exam Free Text/Dictation Constitutional: alert, oriented Psych: nl mood/affect- appropriate Head: atraumatic, normocephalic Eyes: nl lids, nl sclera ENMT: mucosa pink and moist, nl nasal mucosa & septum Neck: non-tender, supple Respiratory: clear to auscultation, normal air movement Cardiovascular: nl pulses, regular rate and rhythm Gastrointestinal: other (no palpable hernia, rotund abdomen), soft, nontender Genitourinary - Female: nl adnexae, nl external genitalia Musculoskeletal: nl extremities to inspection Extremities: normal pulses Neurological: nl mental status, nl speech, nl strength Skin: rash or lesions Lymph: nl lymph nodes Results Result Diagram: 07/19/17 0941 07/19/17 0941 NICHOLAS WRIGHT NP Jul 19, 2017 14:16
[2017-07-19 14:40] LABS: ADD UMIC NO; UR ASCORBIC ACID NEGATIVE (NEGATIVE); UR BILIRUBIN (Dip) NEGATIVE (NEGATIVE); UR BLOOD (Dip) NEGATIVE (NEGATIVE); UR CLARITY CLEAR (CLEAR); UR COLOR AMBER (YELLOW); UR GLUCOSE (Dip) NEGATIVE (NEGATIVE); UR KETONES (Dip) NEGATIVE (NEGATIVE); UR LEUKOCYTE ESTERASE (Dip) NEGATIVE Leu/ul (NEGATIVE); UR NITRITE (Dip) NEGATIVE (NEGATIVE); UR SPECIFIC GRAVITY (Dip) 1.025 (1.003-1.030); UR TOTAL PROTEIN (Dip) NEGATIVE (NEGATIVE); UR UROBILINOGEN (Dip) 1+ mg/dL (NEGATIVE)
--- NOTE | 2017-07-19 17:20 | PN ---
Date/Time of Note Date/Time of Note DATE: 07/19/17 TIME: 17:04 Assessment/Plan VTE Prophylaxis VTE Prophylaxis Intervention: SCD's Lines/Catheters IV C[facility] Type (from [facility]): Saline Lock Urinary Cath still in place: No Assessment/Plan Chief Complaint/Hosp Course Assessment: Decompensated liver cirrhosis Autoimmune hepatitis-pending IgG Thrombocytopenia Depression Small bowel obstruction due to inguinal hernia Hernia was reduced by the surgeon Needs surgical repair in the future Status post PICC line insertion for hydration 07/17/17 Hepatic encephalopathy Acute kidney injury Plan: Regular diet Surgical repair of inguinal hernia is pending after hospital discharge DHEERAJ and ASMA (positive), AMA negative, IgG pending Might need steroids if IgG level is high, will not initiate until after surgery for hernia repair. Monitor H&H, transfuse for hemoglobin less than 7.5 Consultation performed in collaboration with Subjective: Patient is is alert and oriented however states that she is very depressed, she is crying because her prognosis are poor and she does not understand what is happening to her. Patient developed bleeding at the PICC line insertion site therefore the line has been DC'd, patient is being typed and crossed, plan to transfuse FFP. Patient has a family was explained the plan of treatment and reassured. 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 Patient has been on clear liquid diet. We will try to advance diet as tolerated. Patient denies any abdominal pain, had multiple stools today. Continues receiving lactulose. GI standpoint patient is stable for outpatient management once thrombocytopenia improves. IgG titers pending, if show high immunologic activity steroids might be indicated. Patient needs inguinal hernia repair in the nearest future. All laboratory values have been reviewed. PHYSICAL EXAMINATION: GENERAL: Well developed, well nourished, confused, in no acute distress SKIN: No lesions, no stigmata chronic liver disease, no evidence of bleeding diathesis, left lower leg skin discoloration, multiple bruising LYMPHATIC: No palpable lymphadenopathy. HEAD: Normocephalic, atraumatic, no tenderness. EYES: Pupils equal reactive to light and accommodation, full extraocular movements, sclera clear, non-icteric, no discharge. EARS/NOSE AND THROAT: Ears normal, nose normal, oropharynx normal, oral membranes well hydrated without lesions. NG tube is in place NECK: Supple, no masses, thyroid normal, JVP within normal limits, carotids normal without bruits. CHEST: Inspection within normal limits. CARDIOVASCULAR: Heart: Regular rate and rhythm, no murmurs, gallops or rubs. Peripheral pulses present within normal limits, no cyanosis, clubbing or edemas. No pulsatile abdominal mass RESPIRATORY: Lungs clear to auscultation and percussion, no wheezing, no rubs GASTROINTESTINAL AND LIVER: Abdomen: Soft, supraumbilical tenderness with palpable hernia, non-distended, no masses, no organomegaly, ascites, no guarding, no rebound tenderness, normoactive bowel sounds. Rectal: Deferred. GENITOURINARY: Female genitalia within normal limits. EXTREMITIES: No cyanosis, clubbing or edema. Problems: Exam/Review of Systems Vital Signs Vitals Vital Signs Date Time Temp Pulse Resp B/P Pulse Ox O2 Delivery O2 Flow Rate FiO2 07/19/17 16:20 98.0 68 18 108/57 98 Intake and Output 07/18/17 07/18/17 07/19/17 15:00 23:00 07:00 Intake Total 1250 ml 120 ml Balance 1250 ml 120 ml Results Result Diagram: 07/19/17 0941 07/19/17 0941 Results 24 hrs Laboratory Tests Test 07/19/17 09:41 07/19/17 13:00 White Blood Count 4.4 L Red Blood Count 3.06 L Hemoglobin 11.8 L Hematocrit 35.4 L Mean Corpuscular Volume 115.7 H Mean Corpuscular Hemoglobin 38.6 H Mean Corpuscular Hemoglobin Concent 33.3 Red Cell Distribution Width 21.8 H Platelet Count 27 *L Mean Platelet Volume 12.6 H Neutrophils % 74.5 Lymphocytes % 12.3 L Monocytes % 9.6 Eosinophils % 2.3 Basophils % 0.2 Nucleated Red Blood Cells % 0.0 Neutrophils # 3.3 Lymphocytes # 0.5 L Monocytes # 0.4 Eosinophils # 0.1 Basophils # 0.0 Nucleated Red Blood Cells # 0.0 Sodium Level 146 H Potassium Level 3.6 Chloride Level 109 Carbon Dioxide Level 31 Anion Gap 10 Blood Urea Nitrogen 54 H Creatinine 0.85 Glucose Level 166 Calcium Level 9.7 Phosphorus Level 2.6 Magnesium Level 1.9 Urine Color EDIL Urine Clarity CLEAR Urine pH 6.0 Urine Specific [place] 1.025 Urine Ketones NEGATIVE Urine Nitrite NEGATIVE Urine Bilirubin NEGATIVE Urine Urobilinogen 1+ H Urine Leukocyte Esterase NEGATIVE Urine Hemoglobin NEGATIVE Urine Osmolality 781 Urine Random Creatinine 130.51 Urine Random Sodium < 5 L Urine Glucose NEGATIVE Urine Total Protein 7.0 Medications Medications Current Medications Lactulose (Enulose) 20 gm Q4 PO Last administered on 07/19/17 12:37; Admin Dose 20 GM; Start 07/10/17 at 17:00 Enoxaparin Sodium (Lovenox) 30 mg DAILY SC Last administered on 07/19/17 09: 33; Admin Dose 30 MG; Start 07/11/17 at 09:00 Rifaximin (Xifaxan) 550 mg BID PO Last administered on 07/19/17 09:25; Admin Dose 550 MG; Start 07/11/17 at 11:00 Polyethylene Glycol (Miralax) 17 gm BID PO Last administered on 07/19/17 09: 26; Admin Dose 17 GM; Start 07/12/17 at 21:00 Vitamin A/Vitamin D (Vitamin A & D Oint) 1 applic BID TOP Last administered on 07/19/17 09:26; Admin Dose 1 APPLIC; Start 07/13/17 at 21:00 Multivitamins Therapeutic 1 tab 1 tab DAILY PO Last administered on 07/19/17 09:26; Admin Dose 1 TAB; Start 07/14/17 at 13:00 Dextrose (D5W) 1,000 ml @ 50 mls/hr Q20H IV Last administered on 07/19/17 12 :41; Admin Dose 50 MLS/HR; Start 07/17/17 at 10:30 IV Flush (NS 10 ml) 10 ml PRN PRN IV IV PROTOCOL; Start 07/17/17 at 18:00 Copies To: CC: BRANT BUSTILLOS MD, ANASTASIA NP Jul 19, 2017 17:19
--- NOTE | 2017-07-19 17:55 | PN ---
Date/Time of Note Date/Time of Note DATE: 07/19/17 TIME: 17:46 Assessment/Plan VTE Prophylaxis VTE Prophylaxis Intervention: SCD's Lines/Catheters IV Catheter Type (from [facility]): Saline Lock Urinary Cath still in place: No Assessment/Plan Chief Complaint/Hosp Course 1.Hepatic encephalopathy-patient still slightly confused but improved -Continue lactulose and Rifaxamin - Hold any sedatives 2. Prerenal acute kidney injury TABBY with hypernatremia and hypokalemia secondary to lactulose use-improved with IV fluids -Continue D5W -Nephrology consultation appreciated 3. Cirrhosis with possible autoimmune hepatitis -Discussed case with GI patient does not appear to have any acute hepatitis and liver disease is chronic and terminal hence there is no indication for initiation of steroids and harm of immunosuppression is greater than benefit -DHEERAJ and anti-smooth muscle antibody are positive -Discuss palliation with patient and family -Holding diuretics 4. History of diabetes Patient not currently on any diabetic meds but sugars are elevated A1c 4.8 5. Small bowel obstruction secondary to right inguinal hernia-resolved Surgical consultation appreciated, hernia was manually reduced and patient has having multiple bowel movements Patient now tolerating p.o. diet, no plans for hernia repair at this time, can be done electively as an outpatient after being medically optimized NG tube has been removed Advance diet 6. Pancytopenia with severe thrombocytopenia secondary to cirrhosis PICC line removed secondary to severe bleeding 1 unit of platelets to be given today Prophylaxis: SCDs Problems: Subjective 24 Hr Interval Summary Psychological: depression Exam/Review of Systems Vital Signs Vitals Vital Signs Date Time Temp Pulse Resp B/P Pulse Ox O2 Delivery O2 Flow Rate FiO2 07/19/17 16:20 98.0 68 18 108/57 98 Intake and Output 07/18/17 07/18/17 07/19/17 15:00 23:00 07:00 Intake Total 1250 ml 120 ml Balance 1250 ml 120 ml Exam Constitutional: alert Respiratory: clear to auscultation Cardiovascular: regular rate and rhythm Gastrointestinal: soft, No distended Musculoskeletal: nl extremities to inspection Results Result Diagram: 07/19/17 0941 07/19/17 0941 Results 24 hrs Laboratory Tests Test 07/19/17 09:41 07/19/17 13:00 White Blood Count 4.4 L Red Blood Count 3.06 L Hemoglobin 11.8 L Hematocrit 35.4 L Mean Corpuscular Volume 115.7 H Mean Corpuscular Hemoglobin 38.6 H Mean Corpuscular Hemoglobin Concent 33.3 Red Cell Distribution Width 21.8 H Platelet Count 27 *L Mean Platelet Volume 12.6 H Neutrophils % 74.5 Lymphocytes % 12.3 L Monocytes % 9.6 Eosinophils % 2.3 Basophils % 0.2 Nucleated Red Blood Cells % 0.0 Neutrophils # 3.3 Lymphocytes # 0.5 L Monocytes # 0.4 Eosinophils # 0.1 Basophils # 0.0 Nucleated Red Blood Cells # 0.0 Sodium Level 146 H Potassium Level 3.6 Chloride Level 109 Carbon Dioxide Level 31 Anion Gap 10 Blood Urea Nitrogen 54 H Creatinine 0.85 Glucose Level 166 Calcium Level 9.7 Phosphorus Level 2.6 Magnesium Level 1.9 Urine Color EDIL Urine Clarity CLEAR Urine pH 6.0 Urine Specific [place] 1.025 Urine Ketones NEGATIVE Urine Nitrite NEGATIVE Urine Bilirubin NEGATIVE Urine Urobilinogen 1+ H Urine Leukocyte Esterase NEGATIVE Urine Hemoglobin NEGATIVE Urine Osmolality 781 Urine Random Creatinine 130.51 Urine Random Sodium < 5 L Urine Glucose NEGATIVE Urine Total Protein 7.0 Medications Medications Current Medications Lactulose (Enulose) 20 gm Q4 PO Last administered on 07/19/17 17:44; Admin Dose 20 GM; Start 07/10/17 at 17:00 Enoxaparin Sodium (Lovenox) 30 mg DAILY SC Last administered on 07/19/17 09: 33; Admin Dose 30 MG; Start 07/11/17 at 09:00 Rifaximin (Xifaxan) 550 mg BID PO Last administered on 07/19/17 09:25; Admin Dose 550 MG; Start 07/11/17 at 11:00 Polyethylene Glycol (Miralax) 17 gm BID PO Last administered on 07/19/17 09: 26; Admin Dose 17 GM; Start 07/12/17 at 21:00 Vitamin A/Vitamin D (Vitamin A & D Oint) 1 applic BID TOP Last administered on 07/19/17 09:26; Admin Dose 1 APPLIC; Start 07/13/17 at 21:00 Multivitamins Therapeutic 1 tab 1 tab DAILY PO Last administered on 07/19/17 09:26; Admin Dose 1 TAB; Start 07/14/17 at 13:00 Dextrose (D5W) 1,000 ml @ 50 mls/hr Q20H IV Last administered on 12/22/17at 12 :41; Admin Dose 50 MLS/HR; Start 07/17/17 at 10:30 IV Flush (NS 10 ml) 10 ml PRN PRN IV IV PROTOCOL; Start 07/17/17 at 18:00 LES SIMON Jul 19, 2017 17:55
[2017-07-20] VITALS (12 sets, daily range): BP systolic 97–112; BP diastolic 47–58; PULSE 57–68; RESP 18–19
[2017-07-20] MEDS: LACTULOSE 30ML CUP PO SCH ×6 (01:07→20:52)
[2017-07-20 06:37] LABS: ABNORMAL IP MESSAGE 1; HEMATOCRIT 32.4 % (37.0-47.0); MEAN CORPUSCULAR HEMOGLOBIN 38.3 pg (29.0-33.0); MEAN CORPUSCULAR VOLUME 112.9 fl (82.0-101.0); MEAN PLATELET VOLUME 12.1 fl (7.4-10.4); RED BLOOD COUNT 2.87 10^6/ul (4.20-5.40); RED CELL DISTRIBUTION WIDTH 20.5 % (11.5-14.5); WHITE BLOOD COUNT 3.2 10^3/ul (4.8-10.8)
[2017-07-20 07:16] LABS: PLATELET COUNT 19 10^3/UL (140-415); POSITIVE DIFF @See below
[2017-07-20 07:46] LABS: CALCIUM 9.2 mg/dl (8.4-10.2); CREATININE 0.75 mg/dl (0.44-1.00); MAGNESIUM 1.8 mg/dl (1.7-2.5); PHOSPHORUS 2.6 mg/dl (2.5-4.9); POTASSIUM 3.5 mmol/L (3.5-5.1)
[2017-07-20] MEDS: RIFAXIMIN 550 MG TAB PO SCH ×2 (09:03→20:52)
[2017-07-20] MEDS: MULTIVITAMINS THERAPEUTIC TAB PO SCH (09:03)
[2017-07-20] MEDS: VITAMIN A & D 5 GM OINT PACKET TOP SCH ×2 (09:03→20:52)
[2017-07-20] MEDS: POLYETHYLENE GLYCOL 17 GM PACKET PO SCH ×2 (09:03→20:52)
[2017-07-20 10:03] LABS: ANISOCYTOSIS 1+ (0-0); BASOPHILS % (M) 1 % (0-2); EOSINOPHILS % (M) 2 % (0-7); METAMYELOCYTES %M 1 % (0-0); MONOCYTES % (M) 6 % (0-11); PLATELET ESTIMATE SIG DECREASED; POIKILOCYTOSIS 3+ (0-0); POLYCHROMASIA 3+ (0-0); REACTIVE LYMPHOCYTES% (M) 1 % (0-0)
--- NOTE | 2017-07-20 10:22 | PN ---
Date/Time of Note Date/Time of Note DATE: 07/20/17 TIME: 10:06 Assessment/Plan VTE Prophylaxis VTE Prophylaxis Intervention: SCD's Lines/Catheters IV Catheter Type (from [facility]): Saline Lock Urinary Cath still in place: No Assessment/Plan Chief Complaint/Hosp Course Assessment: Decompensated liver cirrhosis Autoimmune hepatitis-pending IgG Thrombocytopenia Depression Small bowel obstruction due to inguinal hernia Hernia was reduced by the surgeon Needs surgical repair in the future Status post PICC line insertion for hydration 07/17/17 Hepatic encephalopathy Acute kidney injury Plan: Continue Regular diet Surgical repair of inguinal hernia is pending after hospital discharge ASMA (positive), DHEERAJ positive with 1:80 ratio, AMA negative, IgG remains pending Might need steroids if IgG level is high, will not initiate until after surgery for hernia repair. Monitor H&H, transfuse for hemoglobin less than 7.5 Patient seen in collaboration with Subjective: Course reviewed with nursing staff Patient interviewed and examined All labs, imaging and other results reviewed Patient is is alert and oriented to name, place, and year. Will continue Xifaxan and Lactulose. Drop in platelets despite 1 unit transfusion. No active bleeding at this time, will continue to monitor. From GI standpoint patient is stable for outpatient management once thrombocytopenia improves. IgG titers pending, Patient needs inguinal hernia repair in the nearest future. Follow-up with Hepatology as out-patient. PHYSICAL EXAMINATION: GENERAL: Well developed, well nourished, oriented x3, in no acute distress SKIN: No lesions, no stigmata chronic liver disease, no evidence of bleeding diathesis, left lower leg skin discoloration, multiple bruising LYMPHATIC: No palpable lymphadenopathy. HEAD: Normocephalic, atraumatic, no tenderness. EYES: Pupils equal reactive to light and accommodation, full extraocular movements, sclera clear, non-icteric, no discharge. EARS/NOSE AND THROAT: Ears normal, nose normal, oropharynx normal, oral membranes well hydrated without lesions. NG tube is in place NECK: Supple, no masses, thyroid normal, JVP within normal limits, carotids normal without bruits. CHEST: Inspection within normal limits. CARDIOVASCULAR: Heart: Regular rate and rhythm, no murmurs, gallops or rubs. Peripheral pulses present within normal limits, no cyanosis, clubbing or edemas. No pulsatile abdominal mass RESPIRATORY: Lungs clear to auscultation and percussion, no wheezing, no rubs GASTROINTESTINAL AND LIVER: Abdomen: Soft, supraumbilical tenderness with palpable hernia, non-distended, no masses, no organomegaly, ascites, no guarding, no rebound tenderness, normoactive bowel sounds. Rectal: Deferred. GENITOURINARY: Female genitalia within normal limits. EXTREMITIES: Discoloration BLE Problems: Exam/Review of Systems Vital Signs Vitals Vital Signs Date Time Temp Pulse Resp B/P Pulse Ox O2 Delivery O2 Flow Rate FiO2 07/20/17 08:03 57 07/20/17 07:50 98.0 18 99/47 98 Intake and Output 07/19/17 07/19/17 07/20/17 15:00 23:00 07:00 Intake Total 840 ml 500 ml Balance 840 ml 500 ml Results Result Diagram: 07/20/17 0555 07/20/17 0555 Results 24 hrs Laboratory Tests Test 07/19/17 13:00 07/20/17 05:55 Urine Color EDIL Urine Clarity CLEAR Urine pH 6.0 Urine Specific [place] 1.025 Urine Ketones NEGATIVE Urine Nitrite NEGATIVE Urine Bilirubin NEGATIVE Urine Urobilinogen 1+ H Urine Leukocyte Esterase NEGATIVE Urine Hemoglobin NEGATIVE Urine Osmolality 781 Urine Random Creatinine 130.51 Urine Random Sodium < 5 L Urine Glucose NEGATIVE Urine Total Protein 7.0 White Blood Count 3.2 #L Red Blood Count 2.87 L Hemoglobin 11.0 L Hematocrit 32.4 L Mean Corpuscular Volume 112.9 H Mean Corpuscular Hemoglobin 38.3 H Mean Corpuscular Hemoglobin Concent 34.0 Red Cell Distribution Width 20.5 H Platelet Count 19 #*L Mean Platelet Volume 12.1 H Neutrophils % Segmented Neutrophils % (Manual) 65 Band Neutrophils % (Manual) 13 H Lymphocytes % Lymphocytes % (Manual) 11 L Reactive Lymphocytes % (Manual) 1 H Monocytes % Monocytes % (Manual) 6 Eosinophils % Eosinophils % (Manual) 2 Basophils % Basophils % (Manual) 1 Metamyelocytes % (manual) 1 H Nucleated Red Blood Cells % 0.0 Neutrophils # Neutrophils # (Manual) 2.1 Band Neutrophils # 0.4 Absolute Lymphocytes (Manual) 0.3 L Lymphocytes # Reactive Lymphocytes # 0.0 Monocytes # Absolute Monocytes (Manual) 0.1 L Eosinophils # Basophils # Basophils # (Manual) 0.0 Metamyelocytes # 0.0 Nucleated Red Blood Cells # Platelet Estimate SIG DECREASED Polychromasia 3+ Poikilocytosis 3+ Anisocytosis 1+ Macrocytosis 1+ Sodium Level 140 Potassium Level 3.5 Chloride Level 105 Carbon Dioxide Level 30 Anion Gap 9 Blood Urea Nitrogen 39 #H Creatinine 0.75 Glucose Level 116 # Calcium Level 9.2 Phosphorus Level 2.6 Magnesium Level 1.8 Medications Medications Current Medications Lactulose (Enulose) 20 gm Q4 PO Last administered on 07/20/17 09:03; Admin Dose 20 GM; Start 07/10/17 at 17:00 Rifaximin (Xifaxan) 550 mg BID PO Last administered on 07/20/17 09:03; Admin Dose 550 MG; Start 07/11/17 at 11:00 Polyethylene Glycol (Miralax) 17 gm BID PO Last administered on 07/20/17 09: 03; Admin Dose 17 GM; Start 07/12/17 at 21:00 Vitamin A/Vitamin D (Vitamin A & D Oint) 1 applic BID TOP Last administered on 07/20/17 09:03; Admin Dose 1 APPLIC; Start 07/13/17 at 21:00 Multivitamins Therapeutic 1 tab 1 tab DAILY PO Last administered on 07/20/17 09:03; Admin Dose 1 TAB; Start 07/14/17 at 13:00 Dextrose (D5W) 1,000 ml @ 50 mls/hr Q20H IV Last administered on 07/19/17 12 :41; Admin Dose 50 MLS/HR; Start 07/17/17 at 10:30 IV Flush (NS 10 ml) 10 ml PRN PRN IV IV PROTOCOL; Start 07/17/17 at 18:00 HUMPHREY ROBERTS Jul 20, 2017 10:16
--- NOTE | 2017-07-20 10:54 | PN ---
Date/Time of Note Date/Time of Note DATE: 07/20/17 TIME: 10:54 Assessment/Plan VTE Prophylaxis VTE Prophylaxis Intervention: other Lines/Catheters IV Catheter Type (from [facility]): Saline Lock Urinary Cath still in place: No Assessment/Plan Chief Complaint/Hosp Course renal follow up SUBJECTIVE: The patient is stable. No events overnight. No fevers, chills, nausea, vomiting. The patient is currently tolerating p.o. OBJECTIVE: HEENT: Head is normocephalic. NECK: Supple. HEART: Regular rate. LUNGS: Show diminished breath sounds at the base. ABDOMEN: Soft, nontender to palpation without rebound or guarding. EXTREMITIES: Negative for clubbing, cyanosis. No edema. DERMATOLOGIC: No rashes. MUSCULOSKELETAL: No joint effusions. NEUROLOGIC: No change in exam. MEDICATIONS: The patient's medications have been reviewed. ASSESSMENT AND PLAN: 1. Nonoliguric acute kidney injury with previous baseline creatinine 0.8 mg/ dL. Etiology of acute kidney injury is likely secondary to hemodynamics. The patient's renal function has slowly been improving with supportive care and IV hydration. At this point, continue current treatment plan, supportive care and renally dose all medications. 2. Hyponatremia. Etiology is likely from insensible losses. Low suspicion for diabetes insipidus. Although urine osmolarity and urine sodium are pending. At this point, continue D5 water. Continue to encourage p.o. free water intake. Monitor serial sodium levels. 3. Mineral bone disorder. Monitor calcium and phosphorus levels, will replete phosphate levels as needed. 4. Encephalopathy, improving. Continue current medical management. 5. History of diabetes. Continue to monitor. 6. Small-bowel obstruction, improved. The patient's NG tube was removed, currently tolerating p.o. 7. Cirrhosis, decompensated. Continue medical management. Patient may have an autoimmune etiology. Continue to monitor. Follow up with gastroenterology. Problems: Exam/Review of Systems Vital Signs Vitals Vital Signs Date Time Temp Pulse Resp B/P Pulse Ox O2 Delivery O2 Flow Rate FiO2 07/20/17 08:03 57 07/20/17 07:50 98.0 18 99/47 98 Intake and Output 07/19/17 07/19/17 07/20/17 15:00 23:00 07:00 Intake Total 840 ml 500 ml Balance 840 ml 500 ml Results Result Diagram: 07/20/17 0555 07/20/17 0555 Results 24 hrs Laboratory Tests Test 07/19/17 13:00 07/20/17 05:55 Urine Color EDIL Urine Clarity CLEAR Urine pH 6.0 Urine Specific [place] 1.025 Urine Ketones NEGATIVE Urine Nitrite NEGATIVE Urine Bilirubin NEGATIVE Urine Urobilinogen 1+ H Urine Leukocyte Esterase NEGATIVE Urine Hemoglobin NEGATIVE Urine Osmolality 781 Urine Random Creatinine 130.51 Urine Random Sodium < 5 L Urine Glucose NEGATIVE Urine Total Protein 7.0 White Blood Count 3.2 #L Red Blood Count 2.87 L Hemoglobin 11.0 L Hematocrit 32.4 L Mean Corpuscular Volume 112.9 H Mean Corpuscular Hemoglobin 38.3 H Mean Corpuscular Hemoglobin Concent 34.0 Red Cell Distribution Width 20.5 H Platelet Count 19 #*L Mean Platelet Volume 12.1 H Neutrophils % Segmented Neutrophils % (Manual) 65 Band Neutrophils % (Manual) 13 H Lymphocytes % Lymphocytes % (Manual) 11 L Reactive Lymphocytes % (Manual) 1 H Monocytes % Monocytes % (Manual) 6 Eosinophils % Eosinophils % (Manual) 2 Basophils % Basophils % (Manual) 1 Metamyelocytes % (manual) 1 H Nucleated Red Blood Cells % 0.0 Neutrophils # Neutrophils # (Manual) 2.1 Band Neutrophils # 0.4 Absolute Lymphocytes (Manual) 0.3 L Lymphocytes # Reactive Lymphocytes # 0.0 Monocytes # Absolute Monocytes (Manual) 0.1 L Eosinophils # Basophils # Basophils # (Manual) 0.0 Metamyelocytes # 0.0 Nucleated Red Blood Cells # Platelet Estimate SIG DECREASED Polychromasia 3+ Poikilocytosis 3+ Anisocytosis 1+ Macrocytosis 1+ Sodium Level 140 Potassium Level 3.5 Chloride Level 105 Carbon Dioxide Level 30 Anion Gap 9 Blood Urea Nitrogen 39 #H Creatinine 0.75 Glucose Level 116 # Calcium Level 9.2 Phosphorus Level 2.6 Magnesium Level 1.8 Medications Medications Current Medications Lactulose (Enulose) 20 gm Q4 PO Last administered on 07/20/17 09:03; Admin Dose 20 GM; Start 07/10/17 at 17:00 Rifaximin (Xifaxan) 550 mg BID PO Last administered on 07/20/17 09:03; Admin Dose 550 MG; Start 07/11/17 at 11:00 Polyethylene Glycol (Miralax) 17 gm BID PO Last administered on 07/20/17 09: 03; Admin Dose 17 GM; Start 07/12/17 at 21:00 Vitamin A/Vitamin D (Vitamin A & D Oint) 1 applic BID TOP Last administered on 07/20/17 09:03; Admin Dose 1 APPLIC; Start 07/13/17 at 21:00 Multivitamins Therapeutic 1 tab 1 tab DAILY PO Last administered on 07/20/17 09:03; Admin Dose 1 TAB; Start 07/14/17 at 13:00 Dextrose (D5W) 1,000 ml @ 50 mls/hr Q20H IV Last administered on 07/19/17 12 :41; Admin Dose 50 MLS/HR; Start 07/17/17 at 10:30 IV Flush (NS 10 ml) 10 ml PRN PRN IV IV PROTOCOL; Start 07/17/17 at 18:00 TETE VENCES DO Jul 20, 2017 10:54
--- NOTE | 2017-07-20 11:33 | PN ---
Date/Time of Note Date/Time of Note DATE: 07/20/17 TIME: 11:30 Assessment/Plan VTE Prophylaxis VTE Prophylaxis Intervention: SCD's Lines/Catheters IV [facility] Type (from [facility] Saline Lock Urinary Cath still in place: No Assessment/Plan Chief Complaint/Hosp Course 1.Hepatic encephalopathy-patient still slightly confused but improved -Continue lactulose and Rifaxamin - Hold any sedatives 2. Prerenal acute kidney injury TABBY with hypernatremia and hypokalemia secondary to lactulose use-improved with IV fluids -Continue D5W -Nephrology consultation appreciated 3. Cirrhosis with possible autoimmune hepatitis -Discussed case with GI patient does not appear to have any acute hepatitis and liver disease is chronic and terminal hence there is no indication for initiation of steroids and harm of immunosuppression is greater than benefit -DHEERAJ and anti-smooth muscle antibody are positive -Patient to follow-up with a automation tester as an outpatient -Holding diuretics and patient continues to not have ascites 4. History of diabetes Patient not currently on any diabetic meds but sugars are elevated A1c 4.8 5. Small bowel obstruction secondary to right inguinal hernia-resolved Surgical consultation appreciated, hernia was manually reduced and patient has having multiple bowel movements Patient now tolerating p.o. diet, no plans for hernia repair at this time, can be done electively as an outpatient after being medically optimized NG tube has been removed 6. Pancytopenia with severe thrombocytopenia secondary to cirrhosis PICC line removed secondary to severe bleeding 1 unit of platelet given yesterday, no plans for platelets today and will monitor platelet count in a.m. Prophylaxis: SCDs Discharge planning: Anticipate discharge home tomorrow if platelets are stable Problems: Subjective 24 Hr Interval Summary Constitutional: no complaints Exam/Review of Systems Vital Signs Vitals Vital Signs Date Time Temp Pulse Resp B/P Pulse Ox O2 Delivery O2 Flow Rate FiO2 07/20/17 08:03 57 07/20/17 07:50 98.0 18 99/47 98 Intake and Output 07/19/17 07/19/17 07/20/17 15:00 23:00 07:00 Intake Total 840 ml 500 ml Balance 840 ml 500 ml Exam Constitutional: alert Psych: confusion Respiratory: clear to auscultation Cardiovascular: regular rate and rhythm Gastrointestinal: soft, No distended Musculoskeletal: nl extremities to inspection Results Result Diagram: 07/20/17 0555 07/20/17 0555 Results 24 hrs Laboratory Tests Test 07/19/17 13:00 07/20/17 05:55 Urine Color EDIL Urine Clarity CLEAR Urine pH 6.0 Urine Specific [place] 1.025 Urine Ketones NEGATIVE Urine Nitrite NEGATIVE Urine Bilirubin NEGATIVE Urine Urobilinogen 1+ H Urine Leukocyte Esterase NEGATIVE Urine Hemoglobin NEGATIVE Urine Osmolality 781 Urine Random Creatinine 130.51 Urine Random Sodium < 5 L Urine Glucose NEGATIVE Urine Total Protein 7.0 White Blood Count 3.2 #L Red Blood Count 2.87 L Hemoglobin 11.0 L Hematocrit 32.4 L Mean Corpuscular Volume 112.9 H Mean Corpuscular Hemoglobin 38.3 H Mean Corpuscular Hemoglobin Concent 34.0 Red Cell Distribution Width 20.5 H Platelet Count 19 #*L Mean Platelet Volume 12.1 H Neutrophils % Segmented Neutrophils % (Manual) 65 Band Neutrophils % (Manual) 13 H Lymphocytes % Lymphocytes % (Manual) 11 L Reactive Lymphocytes % (Manual) 1 H Monocytes % Monocytes % (Manual) 6 Eosinophils % Eosinophils % (Manual) 2 Basophils % Basophils % (Manual) 1 Metamyelocytes % (manual) 1 H Nucleated Red Blood Cells % 0.0 Neutrophils # Neutrophils # (Manual) 2.1 Band Neutrophils # 0.4 Absolute Lymphocytes (Manual) 0.3 L Lymphocytes # Reactive Lymphocytes # 0.0 Monocytes # Absolute Monocytes (Manual) 0.1 L Eosinophils # Basophils # Basophils # (Manual) 0.0 Metamyelocytes # 0.0 Nucleated Red Blood Cells # Platelet Estimate SIG DECREASED Polychromasia 3+ Poikilocytosis 3+ Anisocytosis 1+ Macrocytosis 1+ Sodium Level 140 Potassium Level 3.5 Chloride Level 105 Carbon Dioxide Level 30 Anion Gap 9 Blood Urea Nitrogen 39 #H Creatinine 0.75 Glucose Level 116 # Calcium Level 9.2 Phosphorus Level 2.6 Magnesium Level 1.8 Medications Medications Current Medications Lactulose (Enulose) 20 gm Q4 PO Last administered on 07/20/17 09:03; Admin Dose 20 GM; Start 07/10/17 at 17:00 Rifaximin (Xifaxan) 550 mg BID PO Last administered on 07/20/17 09:03; Admin Dose 550 MG; Start 07/11/17 at 11:00 Polyethylene Glycol (Miralax) 17 gm BID PO Last administered on 07/20/17 09: 03; Admin Dose 17 GM; Start 07/12/17 at 21:00 Vitamin A/Vitamin D (Vitamin A & D Oint) 1 applic BID TOP Last administered on 07/20/17 09:03; Admin Dose 1 APPLIC; Start 07/13/17 at 21:00 Multivitamins Therapeutic 1 tab 1 tab DAILY PO Last administered on 07/20/17 09:03; Admin Dose 1 TAB; Start 07/14/17 at 13:00 Dextrose (D5W) 1,000 ml @ 50 mls/hr Q20H IV Last administered on 07/19/17 12 :41; Admin Dose 50 MLS/HR; Start 07/17/17 at 10:30 IV Flush (NS 10 ml) 10 ml PRN PRN IV IV PROTOCOL; Start 07/17/17 at 18:00 LES SIMON Jul 20, 2017 11:33
[2017-07-20] MEDS: DEXTROSE 5% 1,000 ML IV SCH (17:38)
[2017-07-21] VITALS (8 sets, daily range): BP systolic 88–107; BP diastolic 49–52; PULSE 62–67; RESP 18
[2017-07-21] MEDS: LACTULOSE 30ML CUP PO SCH ×4 (00:49→12:34)
[2017-07-21 06:54] LABS: ABNORMAL IP MESSAGE 1; HEMATOCRIT 32.3 % (37.0-47.0); HEMOGLOBIN 11.2 g/dl (12.0-16.0); MEAN CORPUSCULAR HEMOGLOBIN 38.2 pg (29.0-33.0); MEAN CORPUSCULAR HGB CONC 34.7 g/dl (32.0-37.0); MEAN CORPUSCULAR VOLUME 110.2 fl (82.0-101.0); MEAN PLATELET VOLUME 12.3 fl (7.4-10.4); NUCLEATED RED BLOOD CELLS% 0.5 /100WBC (0.0-0.0); RED BLOOD COUNT 2.93 10^6/ul (4.20-5.40); RED CELL DISTRIBUTION WIDTH 19.8 % (11.5-14.5); WHITE BLOOD COUNT 4.1 10^3/ul (4.8-10.8)
[2017-07-21 07:13] LABS: PLATELET COUNT 21 10^3/UL (140-415); POSITIVE DIFF @See below
[2017-07-21 07:21] LABS: CALCIUM 8.5 mg/dl (8.4-10.2); CREATININE 0.59 mg/dl (0.44-1.00); MAGNESIUM 1.6 mg/dl (1.7-2.5); PHOSPHORUS 2.6 mg/dl (2.5-4.9); POTASSIUM 3.7 mmol/L (3.5-5.1)
[2017-07-21] MEDS: MULTIVITAMINS THERAPEUTIC TAB PO SCH (08:37)
[2017-07-21] MEDS: POLYETHYLENE GLYCOL 17 GM PACKET PO SCH (08:37)
[2017-07-21] MEDS: VITAMIN A & D 5 GM OINT PACKET TOP SCH (08:37)
[2017-07-21] MEDS: RIFAXIMIN 550 MG TAB PO SCH (08:37)
--- NOTE | 2017-07-21 08:49 | PN ---
Date/Time of Note Date/Time of Note DATE: 07/21/17 TIME: 08:47 Assessment/Plan VTE Prophylaxis VTE Prophylaxis Intervention: SCD's Lines/Catheters IV Catheter Type (from [facility]): Saline Lock Urinary Cath still in place: No Assessment/Plan Chief Complaint/Hosp Course Assessment: Decompensated liver cirrhosis Autoimmune hepatitis-pending IgG Thrombocytopenia Depression Small bowel obstruction due to inguinal hernia Hernia was reduced by the surgeon Needs surgical repair in the future Status post PICC line insertion for hydration 07/17/17 Hepatic encephalopathy Acute kidney injury Plan: Continue Regular diet Surgical repair of inguinal hernia is pending after hospital discharge Monitor H&H, transfuse for hemoglobin less than 7.5 Patient seen in collaboration with Subjective: Course reviewed with nursing staff Patient interviewed and examined All labs, imaging and other results reviewed Patient is is alert and oriented to name, place, and year. Continue Xifaxan and Lactulose. No change in PLT count. From GI standpoint patient is stable for outpatient management once thrombocytopenia improves. IgG titers pending, Patient needs inguinal hernia repair in the nearest future. Follow-up with Hepatology as out-patient. PHYSICAL EXAMINATION: GENERAL: Well developed, well nourished, oriented x3, in no acute distress SKIN: No lesions, no stigmata chronic liver disease, no evidence of bleeding diathesis, left lower leg skin discoloration, multiple bruising LYMPHATIC: No palpable lymphadenopathy. HEAD: Normocephalic, atraumatic, no tenderness. EYES: Pupils equal reactive to light and accommodation, full extraocular movements, sclera clear, non-icteric, no discharge. EARS/NOSE AND THROAT: Ears normal, nose normal, oropharynx normal, oral membranes well hydrated without lesions. NG tube is in place NECK: Supple, no masses, thyroid normal, JVP within normal limits, carotids normal without bruits. CHEST: Inspection within normal limits. CARDIOVASCULAR: Heart: Regular rate and rhythm, no murmurs, gallops or rubs. Peripheral pulses present within normal limits, no cyanosis, clubbing or edemas. No pulsatile abdominal mass RESPIRATORY: CTA GASTROINTESTINAL AND LIVER: Abdomen: Soft, supraumbilical tenderness with palpable hernia, non-distended, no masses, no organomegaly, ascites, no guarding, no rebound tenderness, normoactive bowel sounds. Rectal: Deferred. GENITOURINARY: Female genitalia within normal limits. EXTREMITIES: Discoloration BLE Problems: Exam/Review of Systems Vital Signs Vitals Vital Signs Date Time Temp Pulse Resp B/P Pulse Ox O2 Delivery O2 Flow Rate FiO2 07/21/17 08:12 65 07/21/17 07:52 98.0 18 107/51 98 Intake and Output 07/20/17 07/20/17 07/21/17 15:00 23:00 07:00 Intake Total 650 ml 620 ml Balance 650 ml 620 ml Results Result Diagram: 07/21/17 0614 07/21/17 0614 Results 24 hrs Laboratory Tests Test 07/21/17 06:14 07/21/17 06:24 White Blood Count 4.1 #L Red Blood Count 2.93 L Hemoglobin 11.2 L Hematocrit 32.3 L Mean Corpuscular Volume 110.2 H Mean Corpuscular Hemoglobin 38.2 H Mean Corpuscular Hemoglobin Concent 34.7 Red Cell Distribution Width 19.8 H Platelet Count 21 *L Mean Platelet Volume 12.3 H Neutrophils % Lymphocytes % Monocytes % Eosinophils % Basophils % Nucleated Red Blood Cells % 0.5 H Neutrophils # Lymphocytes # Monocytes # Eosinophils # Basophils # Nucleated Red Blood Cells # Sodium Level 131 L Potassium Level 3.7 Chloride Level 98 Carbon Dioxide Level 29 Anion Gap 8 Blood Urea Nitrogen 28 #H Creatinine 0.59 Glucose Level 135 Calcium Level 8.5 Phosphorus Level 2.6 Magnesium Level 1.6 L Lab Scanned Report BLOOD TRANSFUSION Medications Medications Current Medications Lactulose (Enulose) 20 gm Q4 PO Last administered on 07/21/17 08:37; Admin Dose 20 GM; Start 07/10/17 at 17:00 Rifaximin (Xifaxan) 550 mg BID PO Last administered on 07/21/17 08:37; Admin Dose 550 MG; Start 07/11/17 at 11:00 Polyethylene Glycol (Miralax) 17 gm BID PO Last administered on 07/21/17 08: 37; Admin Dose 17 GM; Start 07/12/17 at 21:00 Vitamin A/Vitamin D (Vitamin A & D Oint) 1 applic BID TOP Last administered on 07/21/17 08:37; Admin Dose 1 APPLIC; Start 07/13/17 at 21:00 Multivitamins Therapeutic 1 tab 1 tab DAILY PO Last administered on 07/21/17 08:37; Admin Dose 1 TAB; Start 07/14/17 at 13:00 Dextrose (D5W) 1,000 ml @ 50 mls/hr Q20H IV Last administered on 07/20/17t 17 :38; Admin Dose 50 MLS/HR; Start 07/17/17 at 10:30 IV Flush (NS 10 ml) 10 ml PRN PRN IV IV PROTOCOL; Start 07/17/17 at 18:00 HUMPHREY ROBERTS Jul 21, 2017 08:49
[2017-07-21] MEDS ORDERED: MAGNESIUM OXIDE 400 MG TAB PO ONE (09:00)
--- NOTE | 2017-07-21 10:06 | PN ---
Date/Time of Note Date/Time of Note DATE: 07/21/17 TIME: 10:06 Assessment/Plan VTE Prophylaxis VTE Prophylaxis Intervention: other Lines/Catheters IV Catheter Type (from [facility]): [facility] Urinary Cath still in place: No Assessment/Plan Chief Complaint/Hosp Course renal follow up SUBJECTIVE: The patient is stable. No events overnight. No fevers, chills, nausea, vomiting. The patient is currently tolerating p.o. OBJECTIVE: HEENT: Head is normocephalic. NECK: Supple. HEART: Regular rate. LUNGS: Show diminished breath sounds at the base. ABDOMEN: Soft, nontender to palpation without rebound or guarding. EXTREMITIES: Negative for clubbing, cyanosis. No edema. DERMATOLOGIC: No rashes. MUSCULOSKELETAL: No joint effusions. NEUROLOGIC: No change in exam. MEDICATIONS: The patient's medications have been reviewed. ASSESSMENT AND PLAN: 1. Nonoliguric acute kidney injury with previous baseline creatinine 0.8 mg/ dL. Etiology of acute kidney injury is likely secondary to hemodynamics. The patient's renal function has slowly been improving with supportive care and IV hydration. At this point, continue current treatment plan, supportive care and renally dose all medications. 2. Hyponatremia. Etiology is likely from insensible losses. Low suspicion for diabetes insipidus. Although urine osmolarity and urine sodium are pending. At this point, continue D5 water. Continue to encourage p.o. free water intake. Monitor serial sodium levels. 3. Mineral bone disorder. Monitor calcium and phosphorus levels, will replete phosphate levels as needed. 4. Encephalopathy, improving. Continue current medical management. 5. History of diabetes. Continue to monitor. 6. Small-bowel obstruction, improved. The patient's NG tube was removed, currently tolerating p.o. 7. Cirrhosis, decompensated. Continue medical management. Patient may have an autoimmune etiology. Continue to monitor. Follow up with gastroenterology. Problems: Exam/Review of Systems Vital Signs Vitals Vital Signs Date Time Temp Pulse Resp B/P Pulse Ox O2 Delivery O2 Flow Rate FiO2 07/21/17 08:12 65 07/21/17 07:52 98.0 18 107/51 98 Intake and Output 07/20/17 07/20/17 07/21/17 15:00 23:00 07:00 Intake Total 650 ml 620 ml Balance 650 ml 620 ml Results Result Diagram: 07/21/17 0614 07/21/17 0614 Results 24 hrs Laboratory Tests Test 07/21/17 06:14 07/21/17 06:24 White Blood Count 4.1 #L Red Blood Count 2.93 L Hemoglobin 11.2 L Hematocrit 32.3 L Mean Corpuscular Volume 110.2 H Mean Corpuscular Hemoglobin 38.2 H Mean Corpuscular Hemoglobin Concent 34.7 Red Cell Distribution Width 19.8 H Platelet Count 21 *L Mean Platelet Volume 12.3 H Neutrophils % Lymphocytes % Monocytes % Eosinophils % Basophils % Nucleated Red Blood Cells % 0.5 H Neutrophils # Lymphocytes # Monocytes # Eosinophils # Basophils # Nucleated Red Blood Cells # Sodium Level 131 L Potassium Level 3.7 Chloride Level 98 Carbon Dioxide Level 29 Anion Gap 8 Blood Urea Nitrogen 28 #H Creatinine 0.59 Glucose Level 135 Calcium Level 8.5 Phosphorus Level 2.6 Magnesium Level 1.6 L Lab Scanned Report BLOOD TRANSFUSION Medications Medications Current Medications Lactulose (Enulose) 20 gm Q4 PO Last administered on 07/21/17 08:37; Admin Dose 20 GM; Start 07/10/17 at 17:00 Rifaximin (Xifaxan) 550 mg BID PO Last administered on 07/21/17 08:37; Admin Dose 550 MG; Start 07/11/17 at 11:00 Polyethylene Glycol (Miralax) 17 gm BID PO Last administered on 07/21/17 08: 37; Admin Dose 17 GM; Start 07/12/17 at 21:00 Vitamin A/Vitamin D (Vitamin A & D Oint) 1 applic BID TOP Last administered on 07/21/17 08:37; Admin Dose 1 APPLIC; Start 07/13/17 at 21:00 Multivitamins Therapeutic 1 tab 1 tab DAILY PO Last administered on 07/21/17 08:37; Admin Dose 1 TAB; Start 07/14/17 at 13:00 Dextrose (D5W) 1,000 ml @ 50 mls/hr Q20H IV Last administered on 07/20/17 17 :38; Admin Dose 50 MLS/HR; Start 07/17/17 at 10:30 IV Flush (NS 10 ml) 10 ml PRN PRN IV IV PROTOCOL; Start 07/17/17 at 18:00 TETE VENCES DO Jul 21, 2017 10:06
[2017-07-21] MEDS: DEXTROSE 5% 1,000 ML IV SCH (10:41)
[2017-07-21 11:00] LABS: ANISOCYTOSIS 2+ (0-0); BURR CELLS 1+ (0-0); EOSINOPHILS % (M) 1 % (0-7); MONOCYTES % (M) 8 % (0-11); PLATELET ESTIMATE SIG DECREASED; POIKILOCYTOSIS 1+ (0-0); POLYCHROMASIA 1+ (0-0); REACTIVE LYMPHOCYTES% (M) 3 % (0-0)
[2017-07-21] MEDS ORDERED: POLY17PO6 PO (11:27)
[2017-07-21] MEDS ORDERED: LACT20SO2 PO (11:27)
[2017-07-21] MEDS ORDERED: RIFA550T4 PO (11:27)
--- NOTE | 2017-07-21 11:28 | PDOCDIS ---
Discharge Instructions CONDITION Patient Condition: Good HOME CARE INSTRUCTIONS: Diet Instructions: Regular ACTIVITY: Activity Restrictions: No Restrictions FOLLOW UP/APPOINTMENTS Follow-up Plan F/U WITH YOUR PCP IN 1-2 WEEKS, F/U WITH A LIVER SPECIALIST LES SIMON Jul 21, 2017 11:28
--- NOTE | 2017-07-21 14:40 | DS ---
Date/Time of Note Date/Time of Note DATE: 07/21/17 TIME: 14:28 Discharge Summary Admission/Discharge Info Admit Date/Time Jul 10, 2017 at 17:57 Discharge Date/Time July 21, 2017 Discharge Diagnosis 1.Hepatic encephalopathy-improved -DC with lactulose and Rifaxamin 2. Prerenal acute kidney injury TABBY with hypernatremia and hypokalemia secondary to lactulose use-resolved with IV fluids -Status post D5W -Nephrology consultation appreciated 3. 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 History of diabetes Patient not currently on any diabetic meds but sugars are elevated A1c 4.8 5. Small bowel obstruction secondary to right inguinal hernia-resolved Surgical consultation appreciated, hernia was manually reduced and patient has having multiple bowel movements Patient now tolerating p.o. diet, no plans for hernia repair at this time, can be done electively as an outpatient after being medically optimized NG tube has been removed 6. Pancytopenia with severe thrombocytopenia secondary to cirrhosis Stable Patient Condition: Fair Hospital Course Patient is a 72 yo female with h/o cirrhosis complicated by ascites, varices, CHF who presents with obtundation was diagnosed with hepatic encephalopathy. Patient had a prolonged hospitalization due to requirements of lactulose and rifaximin to improve mentation. Patient was also diagnosed with a small bowel obstruction due to right inguinal hernia is reduced by surgery and obstruction resolved, patient did tolerate a p.o. diet. Patient was seen by GI for history of cirrhosis, labs did suggest possible autoimmune hepatitis but patient had no acute flareup and cirrhosis is end-stage and hence was not felt to be appropriate to initiate steroids. This was discussed with GI. Patient did improve and on day of discharge patient's vitals, labs and physical exam are stable. Patient lives with her brother and patient was felt to be stable to return home with him. Of note patient's diuretics were held during the hospitalization and patient developed no ascites. Patient and brother were told to discontinue home diuretics but to restart if ascites develops. Patient was also told to follow-up with building construction engineer as an outpatient for evaluation for liver transplant. On day of discharge patient's vitals, labs physical exam stable she no acute complaints and questions answered. Home Meds Active Scripts Rifaximin* (Xifaxan*) 550 Mg Tablet, 550 MG PO BID, #60 TAB 2 Refills Prov:LES SIMON 07/21/17 Lactulose* (Lactulose*) 20 Gm/30 Ml Solution, 20 GM PO Q4, #90 3 Refills Prov:LES SIMON 07/21/17 Ondansetron (Ondansetron Odt) 4 Mg Tab.rapdis, 4 MG PO Q6H Y for NAUSEA AND/OR VOMITING, #10 TAB Prov:VANDANA CORDOVA MD 07/09/17 Reported Medications Prochlorperazine* (Prochlorperazine*) 10 Mg Tablet, 10 MG PO Q6H Y for NAUSEA, TAB 07/10/17 Discontinued Scripts Loperamide Hcl* (Imodium*) 2 Mg Capsule, 2 MG PO .AFTER EA LOOSE BM Y for DIARRHEA, #10 TAB Prov:VANDANA CORDOVA MD 07/09/17 Ciprofloxacin Hcl* (Ciprofloxacin Hcl*) 500 Mg Tablet, 500 MG PO BID for 7 Days , TAB Prov:VANDANA CORDOVA MD 07/09/17 Spironolactone* (Aldactone*) 50 Mg Tablet, 50 MG PO DAILY, #30 TAB 3 Refills Prov:JUDY PEREZ S. 06/18/17 Pantoprazole* (Pantoprazole*) 40 Mg Tablet.dr, 40 MG PO BID@, #60 2 Refills Prov:JUDY PEREZ S. 06/18/17 Furosemide* (Furosemide*) 40 Mg Tablet, 40 MG PO DAILY, #30 TAB 2 Refills Prov:JUDY PEREZ S. 06/18/17 Sulfamethoxazole/Trimethoprim (Sulfamethoxazole-Tmp Ds Tablet) 1 Each Tablet, 1 TAB PO DAILY, #30 TAB 1 Refill Prov:JUDY PEREZ S. 06/18/17 Follow-up Plan F/U WITH YOUR PCP IN 1-2 WEEKS, F/U WITH A LIVER SPECIALIST Primary Care Provider Kirby Porter Time spent on discharge: > 30 minutes LES SIMON Jul 21, 2017 14:39
[2017-07-23 14:37] LABS: MICROALBUMIN 0.5 mg/dL
== END 2017-07-21 16:00 | disposition home or self-care (01) | DRG 442 ==
LOC: E/R 09:20 → MS4 17:57
PROVIDERS: ADMIT Family Medicine; ATTEND Family Medicine
PROC: 0D20XUZ Change Feeding Device in Upper Intestinal Tract, External Approach (ICD-10-PCS; principal; 2017-07-16)
PROC: 02HV33Z Insertion of Infusion Device into Superior Vena Cava, Percutaneous Approach (ICD-10-PCS; 2017-07-17)
PROC: 30233K1 Transfusion of Nonautologous Frozen Plasma into Peripheral Vein, Percutaneous Approach (ICD-10-PCS; 2017-07-19)
DX: K72.90 Hepatic failure, unspecified without coma (principal); N17.9 Acute kidney failure, unspecified; E87.0 Hyperosmolality and hypernatremia; K56.609 Unspecified intestinal obstruction, unspecified as to partial versus complete obstruction; D61.818 Other pancytopenia; E88.09 Other disorders of plasma-protein metabolism, not elsewhere classified; D68.9 Coagulation defect, unspecified; B19.9 Unspecified viral hepatitis without hepatic coma; D69.6 Thrombocytopenia, unspecified; N14.1 Nephropathy induced by other drugs, medicaments and biological substances; R33.9 Retention of urine, unspecified; T47.3X5A Adverse effect of saline and osmotic laxatives, initial encounter; E83.9 Disorder of mineral metabolism, unspecified; E80.6 Other disorders of bilirubin metabolism; K57.90 Diverticulosis of intestine, part unspecified, without perforation or abscess without bleeding; I10 Essential (primary) hypertension; K40.90 Unilateral inguinal hernia, without obstruction or gangrene, not specified as recurrent; K74.69 Other cirrhosis of liver; Z86.39 Personal history of other endocrine, nutritional and metabolic disease; Y92.9 Unspecified place or not applicable
CPT/HCPCS: 36415; 36430; 36569; 70450; 71010; 74010; 74177; 74250; 76705; 76775; 76937; 80048; 80053; 81001; 81003; 82043; 82140; 82728; 82787; 82803; 82962; 83036; 83735; 83935; 84100; 84155; 84300; 84436; 84479; 84484; 85025; 85610; 85730; 86038; 86255; 86706; 86803; 86850; 86900; 86901; 93005; 96374; 97110; 97116; 97163; 97530; J0696; J1650; J2997; J3480; J7030; J7040; J7042; J7070; P9059; Q9967

== ENCOUNTER 2017-07-23 00:53 | Inpatient (IN) | END 2017-08-07 03:30 | disposition EXP | DRG 871 ==